=== PATIENT | female | born 1965 | race Caucasian/White ===

== ENCOUNTER → 2021-04-09 10:50 | Outpatient (BNVA) | payer OTHER, SELFPAY | PROVIDERS: Visit Provider Physician Assistant | DX: S46.911A Strain of unspecified muscle, fascia and tendon at shoulder and upper arm level, right arm, initial encounter (principal); X58.XXXA Exposure to other specified factors, initial encounter | CPT/HCPCS: 73030; 99204 ==

== ENCOUNTER → 2021-04-13 15:51 | Outpatient (BNVA) | payer OTHER, SELFPAY | PROVIDERS: Visit Provider Physician Assistant Medical | DX: S49.91XA Unspecified injury of right shoulder and upper arm, initial encounter (principal); X58.XXXA Exposure to other specified factors, initial encounter | CPT/HCPCS: 99213 ==

== ENCOUNTER → 2021-04-20 11:45 | Outpatient (BNVA) | payer OTHER, SELFPAY | PROVIDERS: PCP Internal Medicine; Visit Provider Physician Assistant Medical | DX: S49.91XD Unspecified injury of right shoulder and upper arm, subsequent encounter (principal); X58.XXXD Exposure to other specified factors, subsequent encounter | CPT/HCPCS: 99213 ==

== ENCOUNTER → 2021-05-04 09:08 | Outpatient (BNVA) | payer OTHER, SELFPAY | PROVIDERS: PCP Internal Medicine; Visit Provider Physician Assistant Medical | DX: M24.811 Other specific joint derangements of right shoulder, not elsewhere classified (principal) | CPT/HCPCS: 99213 ==

== ENCOUNTER 2021-05-21 08:00 | Outpatient (RCR) | payer OTHER, SELFPAY ==
--- NOTE | 2021-04-30 12:20 | MHC.PT.EP ---
[facility] [place] Office [place] Office [place] [facility] [address] [phone] F: [phone] F: [phone] F: [phone] F: [phone] Physical Therapy Plan of Care Date of Evaluation: Date of Surgery: NA Diagnosis: RIGHT SHOULDER INJURY Assessment: PRESENTS WITH S/S CONSISTENT WITH MUSCULAR STRAIN OF DELTOID MUSCULATURE FOLLOWING INJURY AT WORK. HER SYMPTOMS ARE GRADUALLY RESOLVING BUT CURRENT IMPAIRMENTS INCLUDE DECREASED SHOULDER AND ARM STRENGTH, ALTERED POSTURE AND POSITIONING LEADING TO MUSCULAR LENGTH AND STRENGTH IMBALANCES LEADING TO INCREASED PAIN. FUNCTIONAL LIMITATIONS INCLUDE DECREASED TOLERANCE TO LIFTING, REACHING, PUSHING AND PULLING. SHE REPORTS DECREASED ABILITY TO PERFORM HOMEMAKING AND WORK TASKS, DECREASED ABILITY TO PARTICIPATE IN RECREATIONAL AND COMMUNITY ACTIVITIES, DISRUPTED SLEEP. 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 Manual therapy to restore motion and function. Therapeutic exercise to improve strength and flexibility. Neuromuscular re-education for posture and balance. Therapeutic activities to return to functional activities of daily living. Electronically signed by: TINA JOHN PT, DPT Please sign and return to therapist. Thank you for your referral.
== END 2021-06-19 14:45 | disposition home or self-care (01) ==
LOC: HO.PT 08:00
PROVIDERS: PCP Internal Medicine; Visit Provider Physician Assistant Medical
DX: S49.91XD Unspecified injury of right shoulder and upper arm, subsequent encounter (principal)
CPT/HCPCS: 97110; 97140; 97161; 97530

== ENCOUNTER → 2021-05-25 09:08 | Outpatient (BNVA) | payer OTHER, SELFPAY | PROVIDERS: PCP Internal Medicine; Visit Provider Physician Assistant Medical | DX: S43.421D Sprain of right rotator cuff capsule, subsequent encounter (principal); X58.XXXD Exposure to other specified factors, subsequent encounter | CPT/HCPCS: 99213 ==

== ENCOUNTER 2021-06-01 16:20 | Outpatient (REF) | payer OTHER, SELFPAY | END 2021-06-01 16:21 | disposition home or self-care (01) | LOC: HO.MRI 16:20 | PROVIDERS: Visit Provider Internal Medicine | DX: Z13.89 Encounter for screening for other disorder (principal) ==

== ENCOUNTER → 2021-06-03 09:39 | Outpatient (BNVA) | payer OTHER, SELFPAY | PROVIDERS: PCP Internal Medicine; Visit Provider Physician Assistant | DX: S49.91XD Unspecified injury of right shoulder and upper arm, subsequent encounter (principal); X58.XXXD Exposure to other specified factors, subsequent encounter | CPT/HCPCS: 99213 ==

== ENCOUNTER → 2021-06-16 09:30 | Outpatient (BNVA) | payer OTHER, SELFPAY | PROVIDERS: PCP Internal Medicine; Visit Provider Physician Assistant Medical | DX: M75.101 Unspecified rotator cuff tear or rupture of right shoulder, not specified as traumatic (principal); S46.211D Strain of muscle, fascia and tendon of other parts of biceps, right arm, subsequent encounter; X58.XXXD Exposure to other specified factors, subsequent encounter | CPT/HCPCS: 99213 ==

== ENCOUNTER → 2022-08-03 12:44 | Outpatient (BNVA) | payer OTHER, SELFPAY | PROVIDERS: PCP Internal Medicine; Visit Provider Nurse Practitioner Family | DX: G43.709 Chronic migraine without aura, not intractable, without status migrainosus (principal) ==

== ENCOUNTER → 2022-08-31 15:03 | Outpatient (BNVA) | payer OTHER, SELFPAY | PROVIDERS: PCP Internal Medicine; Visit Provider Psychiatry & Neurology Neurology | DX: G43.119 Migraine with aura, intractable, without status migrainosus (principal); G43.709 Chronic migraine without aura, not intractable, without status migrainosus | CPT/HCPCS: 64615; J0585 ==

== ENCOUNTER → 2022-11-09 15:16 | Outpatient (BNVA) | payer OTHER, SELFPAY | PROVIDERS: PCP Internal Medicine; Visit Provider Nurse Practitioner Family | DX: G43.709 Chronic migraine without aura, not intractable, without status migrainosus (principal); M54.2 Cervicalgia | CPT/HCPCS: 99212 ==

== ENCOUNTER → 2023-01-21 14:28 | Outpatient (BNVA) | payer OTHER, SELFPAY | PROVIDERS: PCP Internal Medicine; Visit Provider Psychiatry & Neurology Neurology | DX: G43.709 Chronic migraine without aura, not intractable, without status migrainosus (principal) | CPT/HCPCS: 64615; J0585 ==

== ENCOUNTER → 2023-03-23 11:54 | Outpatient (BNVA) | payer OTHER, SELFPAY | PROVIDERS: PCP Internal Medicine; Visit Provider Physician Assistant | DX: S40.012A Contusion of left shoulder, initial encounter (principal); S50.02XA Contusion of left elbow, initial encounter; W18.30XA Fall on same level, unspecified, initial encounter | CPT/HCPCS: 99204 ==

== ENCOUNTER → 2023-04-22 10:13 | Outpatient (BNVA) | payer OTHER, SELFPAY | PROVIDERS: PCP Internal Medicine; Visit Provider Physician Assistant | DX: M77.12 Lateral epicondylitis, left elbow (principal) | CPT/HCPCS: 99204 ==

== ENCOUNTER 2023-04-28 14:41 | Outpatient (AMB) | payer OTHER, SELFPAY ==
--- NOTE | 2023-04-28 15:01 | A.OFFVIS_ITS ---
Intake Vital Signs 04/28/23 15:05 Height 4 ft 9 in Weight 125 lb 4 oz BMI 27.1 BP 128/78 Blood Pressure Location Lt brachial Position Sitting Respiration 16 Pulse 81 Pulse Source Pulse Oximeter Pulse Oximetry (%) 97 Oxygen Delivery Method Room Air Intake Visit Reasons: Botox Intake Note: Pt present to office for her Botox injections. Allergies amoxicillin Adverse Reaction (Intermediate, Verified 04/28/23 15:02) Stomach Upset ibuprofen [From Motrin] Adverse Reaction (Intermediate, Verified 04/28/23 15:02) Stomach Upset Medication List - Last Reconciled 04/28/23 by Page Prather MD atorvastatin 10 mg PO DAILY qieuhujfis-uvuuvdmcprjgb-hqbd 50-300-40 mg (Fioricet) 1 cap PO Q4H PRN clonidine HCl 0.1 mg PO BID cyclobenzaprine 5 mg PO .prn cyclobenzaprine 5 mg PO BID PRN diclofenac sodium 1% dime size amount topically 4 times a day; apply to affected joint QID PRN dicyclomine 10 mg PO DAILY dulaglutide (Trulicity) 3 mg subcut QWEEK estradiol 1 patch transdermal .weekly hydrochlorothiazide 25 mg PO DAILY losartan 25 mg PO DAILY magnesium oxide 400 mg PO BEDTIME 30 days metformin 1,000 mg PO BID metoprolol succinate ER 100 mg PO DAILY omeprazole magnesium (Prilosec OTC) 20 mg PO DAILY onabotulinumtoxinA (Botox) 200 units IM ONCE 12 weeks riboflavin (vitamin B2) 400 mg PO DAILY zolpidem 5 mg PO BEDTIME PRN HPI HPI Comments History of Present Illness Details ? 58y/o female comes for treatment of migraines with botox. ??? Most frequent reported adverse reactions following injection of botox for chronic migraine include neck pain (9%), headache(5%), eyelid ptosis(4%), migraine(4%), muscular weakness(4%), musculuskeletal stiffness(4%), bronchitis(3%), injection site pain (3%), musculoskeletal pain(3%), myalgia(3%), facial paresis(2%), HTN(2%) and muscle spasms(2%) were discussed in detail. ??? Botulinum toxin typeA 200units Lot no [id number] expiration Aug 2025 was diluted with 4 cc of normal saline . ??? Muscles injected- ??? Frontalis 4 sites ??? Procerus 1 site ???Corrugators 2 sites ??? Temporalis- 8 sites ??? Occipitalis- 6 sites ??? Cervical paraspinals- 4 sites ??? Trapezius- 6 sites- ??? 5 units each in 31 site ??? Total use- 155units ??? Discarded-45units [facility] Medical History Insomnia Fibromyalgia Chronic constipation Bilateral cataracts Anxiety Diverticulosis Mucinous cystadenocarcinoma of right ovary Rectal prolapse Mild mitral regurgitation Diabetes HTN (hypertension) PEGGY (obstructive sleep apnea) Arthritis Surgical History H/O lateral meniscus repair of right knee H/O repair of rotator cuff H/O: hysterectomy Family History Maternal Grandmother Colon cancer Social History Alcohol intake: never Patient Tobacco Use Status: Never used Tobacco Physical Exam Vital Signs: Last Vital Signs Pulse 81 04/28/23 15:05 Resp 16 04/28/23 15:05 BP 128/78 04/28/23 15:05 Pulse Ox 97 04/28/23 15:05 Oxygen Delivery Method Room Air 04/28/23 15:05 BMI result Body Mass Index 27.1 Const General: cooperative and no acute distress Orientation/consciousness: patient oriented x3 HEENT Other: No palpable scalp tenderness. Head: Yes normocephalic Resp Effort & Inspection: normal respiratory effort and able to speak in complete sentences Back/Spine/Pelvis Other: Bilateral posterior cervical tightness. Bilateral Spurling- negative. Neuro General: patient oriented x3, gait normal and CN's II-XI intact bilaterally Cognition (Neuro): normal cognition Motor exam (neuro): 5/5 motor strength present throughout Psych Appearance: grossly normal Mental Status: mental status grossly normal Speech and movement: Normal speech and movement present Affect: normal affect Attitude: cooperative Thought process: Normal thought process present Thought content: Normal thought content present Insight: Good insight present (Psych) Judgement: Good judgement present (Psych) Office Procedures Botulinum toxin Injection 55568 - Migraine Procedure code (CPT) selection complete Office Meds onabotulinumtoxinA 200 unit solution for injection Performing Provider: Page Prather MD Performing Location[place] [facility] Administered by: Page Prather MD on 04/28/23 15:30 Dose Route Admin Location Dispensed Lot Number Expiration Date [facility] Data Governance Analyst 155 unit subcut 200 units [id number] 08/18/25 6966-7432-68 [employer]ERGAN/BOTOX Comments: see hpi Assessment & Plan Assessment & Plan (1) Migraine with aura, intractable, without status migrainosus: Code(s): G43.119 - Migraine with aura, intractable, without status migrainosus (2) Chronic migraine without aura: Code(s): G43.709 - Chronic migraine without aura, not intractable, without status migrainosus Plan Patient tolerated the procedure well SHe will call with any side effects Orders: Orders AMB Botulinum toxin Injection Today G43.709 - Chronic migraine without aura, not intractable, without status migrainosus Coding Level of Care Code Est Pt Level 1 (66089) Diagnoses Migraine with aura, intractable, without status migrainosus G43.119 Chronic migraine without aura G43.709 CPT Codes Botox Injection - Botox 3: 47124 - Migraine ([id number])
[2023-04-28 15:05] VITALS: BP 128/78; PULSE 81; RESP 16; O2SAT 97; BMI 27.1
== END 2023-04-28 15:25 | disposition home or self-care (01) ==
PROVIDERS: PCP Internal Medicine; Visit Provider Psychiatry & Neurology Neurology
DX: G43.709 Chronic migraine without aura, not intractable, without status migrainosus (principal)
CPT/HCPCS: 64615

== ENCOUNTER → 2023-04-28 14:41 | Outpatient (BNVA) | payer OTHER, SELFPAY | PROVIDERS: PCP Internal Medicine; Visit Provider Psychiatry & Neurology Neurology | DX: G43.709 Chronic migraine without aura, not intractable, without status migrainosus (principal) | CPT/HCPCS: 64615; 99211; J0585 ==

== ENCOUNTER → 2023-05-06 09:00 | Outpatient (BNVA) | payer OTHER, SELFPAY | PROVIDERS: PCP Internal Medicine; Visit Provider Physician Assistant | DX: M77.12 Lateral epicondylitis, left elbow (principal) | CPT/HCPCS: 99213 ==

== ENCOUNTER 2023-06-06 14:30 | Outpatient (RCR) | payer OTHER, SELFPAY ==
--- NOTE | 2023-04-29 14:53 | MHC.OT.EP ---
[address] [phone] Occupational Therapy Plan of Care Patient Name: Teodora Dunne Date of Evaluation: 04/29/23 Diagnosis: L EPICONDYLITIS Pain Location: L LATERAL ELBOW 3/10 AT REST 7-8/10 WITH USE, CARRYING TASKS Pain Score: 3-8/10 Pain Scale Used: Numeric (0 - 10) Aggravating Factors: LIFTING >3 POUNDS, HOLDING HEAVY ITEMS Alleviating Factors: USING ICE, NOT TAKING PAIN MEDICATION; HAS NOT WORN CFB YET Assessment: MS DUNNE P/W L LATERAL ELBOW PAIN AFTER A STUDENT AT HER WORK PULLED ON HER LEFT ARM, ABOUT THREE WEEKS AGO. SHE FELT IMMEDIATE PAIN, AND CONTINUES TO HAVE PAIN WHEN LIFTING OR CARRYING ITEMS GREATER THAN 3 POUNDS. 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 A 36% LIMITATION WAS REPORTED PER THE QUICKDASH ASSESSMENT. SHE WOULD CONTINUE TO BENEFIT FROM SKILLED OT TO ADDRESS THE AREAS MENTIONED BELOW. 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 Thank you once again for your referral.
--- NOTE | 2023-06-24 11:19 | MHC.OT.DC ---
[address] [phone] F: [phone] Occupational Therapy Discharge Note Patient Name: Teodora Dunne Provider: Majo Portillo Diagnosis: L EPICONDYLITIS Date of Evaluation: 04/29/23 Date of Discharge: 06/24/23 Treatments to Date: 10 Cancellations to Date: 0 No Shows to Date: 0 Discharge Status: Independent with HEP Recommend MD Follow-up Discharge Summary: MS DUNNE IS IND WITH HER HEP, REPORTS SLIGHT DECREASE IN SHARP SUDDEN PAIN. USING COMPENSATORY TECH, GUARDING NON DOMINANT LUE DURING IADLs/ LIFTING TASKS. REPORTS RELIEF WITH USE OF CFB. WOULD CONT TO BENEFIT FROM TRICEP STRETCHING, USE OF STM/DTM AND ICE FOR PAIN RELIEF. PENDING APPOINTMENT WITH [facility] ON 07/07/23. WILL D/C OT AT THIS TIME. Electronically Signed By: MARLI MATHEWS OTR/L Reviewed/agree with student documentation: N/A Therapist: Please Sign and return to therapist, thank you for your referral.
== END 2023-06-24 11:20 | disposition home or self-care (01) ==
LOC: HO.OT 14:30
PROVIDERS: PCP Internal Medicine; Visit Provider Physician Assistant
DX: M77.12 Lateral epicondylitis, left elbow (principal)
CPT/HCPCS: 97033; 97035; 97110; 97140; 97165

== ENCOUNTER 2023-07-07 15:09 | Outpatient (AMB) | payer OTHER, SELFPAY ==
--- NOTE | 2023-07-07 15:13 | A.OFFVIS_ITS ---
Intake Intake Visit Reasons: New Pt - left elbow pain, DOI 04/08/23 Intake Note: Teodora is a 58 year old right hand dominant female who presents today as a new patient for a evaluation for her left elbow pain, DOI 04/08/23. Patient reports she was holding a students hands and the student pulled her arm which lead her to fell a sharp pain and a stretch. Allergies amoxicillin Adverse Reaction (Intermediate, Verified 07/07/23 15:20) Stomach Upset ibuprofen [From Motrin] Adverse Reaction (Intermediate, Verified 07/07/23 15:20) Stomach Upset HPI New Pt - left elbow pain, DOI 04/08/23 HPI Details 58-year-old right hand dominant female nayla hatfield presents in the office today, as a new patient, for an evaluation of left elbow pain. The patient reports on 04/08/2023 she was holding a students hand when they child pulled on her left upper extremity causing her to feel a sharp pain and a stretch. This is a worker?s compensation claim. [facility] Medical History Insomnia Fibromyalgia Chronic constipation Bilateral cataracts Anxiety Diverticulosis Mucinous cystadenocarcinoma of right ovary Rectal prolapse Mild mitral regurgitation Diabetes HTN (hypertension) PEGGY (obstructive sleep apnea) Arthritis Surgical History H/O lateral meniscus repair of right knee H/O repair of rotator cuff H/O: hysterectomy Family History Maternal Grandmother Colon cancer Social History Alcohol intake: never Patient Tobacco Use Status: Never used Tobacco Review of Systems Const All systems reviewed & are unremarkable except as noted in HPI and below Physical Exam Const General: cooperative and no acute distress Orientation/consciousness: patient oriented x3 Resp Effort & Inspection: normal respiratory effort and able to speak in complete sentences Cardio Peripheral pulses: Peripheral pulses 2+ throughout Skin General skin exam: no rashes or lesions noted Neuro General: patient oriented x3 Extrem Other: Left elbow: Normal to inspection. No ecchymosis, erythema, or edema. No tenderness to palpation over the olecranon. No tenderness to the medial epicondyle. Tenderness to the lateral epicondyle. NVI. Office Procedures Joint Injection/Drain Joint Injection/Drain Secondary Site: left tennis elbow Injected: 40 mg of, DepoMedrol, with 1 mL of (2% plain lido) and other (lateral epicondyle ) Procedure: The patient tolerated the procedure well, but had some pain with the injection and there was some relief with the local anesthesia Coding 58760 - Epicondyle Procedure code (CPT) selection complete Assessment & Plan Assessment & Plan (1) Left lateral epicondylitis: Code(s): M77.12 - Lateral epicondylitis, left elbow Plan Ms. Dunne is a 58-year-old right hand dominant female, as a new patient, who presents in the office today, as a new patient, for an evaluation of left elbow pain. The patient reports on 04/08/2023 she was holding a students hand when they child pulled on her left upper extremity causing her to feel a sharp pain and a stretch. This is a worker?s compensation claim. The patient was offered a cortisone injection in the left elbow with 40 mg of DepoMedrol. The patient was explained the risk, benefits, and alternatives to receiving this injection. After receiving consent for the injection, the patient had the procedure done while in office today. The patient tolerated the procedure well with no complications. Due to the patient?s history of diabetes, they were instructed to monitor her blood glucose level. The patient was informed that they could see a rise in their numbers and if the numbers became too high, they were instructed to call their PCP. The patient was also informed that they could have facial flushing as a side effect of the injection but this will pass. Follow up will be PRN, or sooner if needed. Patient Instructions: Scribed for Shreya Reynolds PA-C by Thalia Morris medical assistant dermatology, on 07/07/2023 at 3:11 pm, EST. Coding Level of Care Code New Pt Level 4 (43416) Diagnoses Left lateral epicondylitis M77.12 CPT Codes Coding - Joint 2: 65618 - Epicondyle ([id number])
== END 2023-07-07 16:04 | disposition home or self-care (01) ==
PROVIDERS: PCP Internal Medicine; Visit Provider Physician Assistant
DX: M77.12 Lateral epicondylitis, left elbow (principal)
CPT/HCPCS: 20550; 99203

== ENCOUNTER → 2023-07-07 15:09 | Outpatient (BNVA) | payer OTHER, SELFPAY | PROVIDERS: PCP Internal Medicine; Visit Provider Physician Assistant | DX: M77.12 Lateral epicondylitis, left elbow (principal) | CPT/HCPCS: 20550; 99202; J1020; J1040 ==

== ENCOUNTER 2023-08-01 14:25 | Outpatient (AMB) | payer OTHER, SELFPAY ==
--- NOTE | 2023-08-01 14:36 | MHC.OFFVIS ---
Intake Vital Signs 08/01/23 14:37 Height 4 ft 9 in Weight 126 lb 4 oz BMI 27.3 BP 142/80 H Blood Pressure Location Rt brachial Position Sitting Respiration 15 Pulse 82 Pulse Source Pulse Oximeter Pulse Oximetry (%) 97 Oxygen Delivery Method Room Air Intake Visit Reasons: Botox - Confirmed Intake Note: Pt presents to office for Botox injections. 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 Required: No Allergies amoxicillin Adverse Reaction (Intermediate, Verified 08/01/23 14:37) Stomach Upset ibuprofen [From Motrin] Adverse Reaction (Intermediate, Verified 08/01/23 14:37) Stomach Upset Medication List - Last Reconciled 08/02/23 by Page Prather MD atorvastatin 10 mg PO DAILY jonqxukwru-gjfyfquwkngcu-zhmo 50-300-40 mg (Fioricet) 1 cap PO Q4H PRN clonidine HCl 0.1 mg PO BID cyclobenzaprine 5 mg PO .prn diclofenac sodium 1% dime size amount topically 4 times a day; apply to affected joint QID PRN dicyclomine 10 mg PO DAILY dulaglutide (Trulicity) 3 mg subcut QWEEK estradiol 1 patch transdermal .weekly hydrochlorothiazide 25 mg PO DAILY losartan 25 mg PO DAILY magnesium oxide 400 mg PO BEDTIME 30 days metformin 1,000 mg PO BID metoprolol succinate ER 100 mg PO DAILY omeprazole magnesium (Prilosec OTC) 20 mg PO DAILY onabotulinumtoxinA (Botox) 200 units IM ONCE 12 weeks riboflavin (vitamin B2) 400 mg PO DAILY zolpidem 5 mg PO BEDTIME PRN HPI HPI Comments History of Present Illness Details ? 58y/o female comes for treatment of migraines with botox. How many migraine days prior to botox-25-30 days How long do the migraines last 1-2 days Intensity of migraine -04/26 ER visits related to migraine- 3 Effectiveness of botox from last two treatment(s) How many migraine days since receiving treatment: Change? in intensity of migraine?3-8 Change in frequency of migraine? 3-4/month Change in use of acute medication for migraine? decreased Change in quality of life?improved ER visits related to migraine?none Have at least three months elapsed since last treatment (Last botox date - frequency of injections) 04/28/23 ??? Most frequent reported adverse reactions following injection of botox for chronic migraine include neck pain (9%), headache(5%), eyelid ptosis(4%), migraine(4%), muscular weakness(4%), musculuskeletal stiffness(4%), bronchitis(3%), injection site pain (3%), musculoskeletal pain(3%), myalgia(3%), facial paresis(2%), HTN(2%) and muscle spasms(2%) were discussed in detail. ??? Botulinum toxin typeA 200units Lot no [id number] expiration Aug 2025 was diluted with 4 cc of normal saline . ??? Muscles injected- ??? Frontalis 4 sites ??? Procerus 1 site ???Corrugators 2 sites ??? Temporalis- 8 sites ??? Occipitalis- 6 sites ??? Cervical paraspinals- 4 sites ??? Trapezius- 6 sites- ??? 5 units each in 31 site ??? Total use- 155units ??? Discarded-45units [facility] Medical History Insomnia Fibromyalgia Chronic constipation Bilateral cataracts Anxiety Diverticulosis Mucinous cystadenocarcinoma of right ovary Rectal prolapse Mild mitral regurgitation Diabetes HTN (hypertension) PEGGY (obstructive sleep apnea) Arthritis Surgical History H/O lateral meniscus repair of right knee H/O repair of rotator cuff H/O: hysterectomy Family History Maternal Grandmother Colon cancer Social History Alcohol intake: never Patient Tobacco Use Status: Never used Tobacco Physical Exam Vital Signs: Last Vital Signs Pulse 82 08/01/23 14:37 Resp 15 08/01/23 14:37 BP 142/80 H 08/01/23 14:37 Pulse Ox 97 08/01/23 14:37 Oxygen Delivery Method Room Air 08/01/23 14:37 BMI result Body Mass Index 27.3 Const General: cooperative and no acute distress Orientation/consciousness: patient oriented x3 HEENT Other: No palpable scalp tenderness. Head: Yes normocephalic Resp Effort & Inspection: normal respiratory effort and able to speak in complete sentences Back/Spine/Pelvis Other: Bilateral posterior cervical tightness. Bilateral Spurling- negative. Neuro General: patient oriented x3, gait normal and CN's II-XI intact bilaterally Cognition (Neuro): normal cognition Motor exam (neuro): 5/5 motor strength present throughout Psych Appearance: grossly normal Mental Status: mental status grossly normal Speech and movement: Normal speech and movement present Affect: normal affect Attitude: cooperative Thought process: Normal thought process present Thought content: Normal thought content present Insight: Good insight present (Psych) Judgement: Good judgement present (Psych) Office Procedures Botulinum toxin Injection 66041 - Migraine Procedure code (CPT) selection complete Office Meds onabotulinumtoxinA 200 unit solution for injection Performing Provider: Page Prather MD Performing Location: [facility] Administered by: Page Prather MD on 08/02/23 12:43 Dose Route Admin Location Dispensed Lot Number Expiration Date [facility] Consumer Lending Manager 155 unit IM 200 units [id number] 12/16/25 6294-7873-92 [employer]/BOTOX Comments: see hpi Assessment & Plan Assessment & Plan (1) Migraine with aura, intractable, without status migrainosus: Code(s): G43.119 - Migraine with aura, intractable, without status migrainosus (2) Chronic migraine without aura: Code(s): G43.709 - Chronic migraine without aura, not intractable, without status migrainosus Plan Patient tolerated the procedure well SHe will call with any side effects Orders: Orders AMB Botulinum toxin Injection 08/01/23 G43.709 - Chronic migraine without aura, not intractable, without status migrainosus Coding Level of Care Code Est Pt Level 1 (13837) Diagnoses Migraine with aura, intractable, without status migrainosus G43.119 Chronic migraine without aura G43.709 CPT Codes Botox Injection - Botox 3: 95638 - Migraine ([id number])
[2023-08-01 14:37] VITALS: BP 142/80; PULSE 82; RESP 15; O2SAT 97; BMI 27.3
== END 2023-08-01 15:07 | disposition home or self-care (01) ==
PROVIDERS: PCP Internal Medicine; Visit Provider Psychiatry & Neurology Neurology
DX: G43.119 Migraine with aura, intractable, without status migrainosus (principal); G43.709 Chronic migraine without aura, not intractable, without status migrainosus
CPT/HCPCS: 64615

== ENCOUNTER → 2023-08-01 14:25 | Outpatient (BNVA) | payer OTHER, SELFPAY | PROVIDERS: PCP Internal Medicine; Visit Provider Psychiatry & Neurology Neurology | DX: G43.709 Chronic migraine without aura, not intractable, without status migrainosus (principal); G43.119 Migraine with aura, intractable, without status migrainosus | CPT/HCPCS: 64615; 99211; J0585 ==

== ENCOUNTER 2023-08-09 13:34 | Outpatient (AMB) | payer OTHER, SELFPAY ==
--- NOTE | 2023-08-09 14:03 | A.OFFVIS_ITS ---
Intake Vital Signs 08/09/23 14:04 Height 4 ft 9 in Weight 126 lb BMI 27.3 Intake Visit Reasons: 6 mo follow up for Migraines Intake Note: Patient presents for 6 month follow up migraines. my migraines are better since I saw her last,im on botox Allergies amoxicillin Adverse Reaction (Intermediate, Verified 08/09/23 14:07) Stomach Upset ibuprofen [From Motrin] Adverse Reaction (Intermediate, Verified 08/09/23 14:07) Stomach Upset HPI HPI Comments History of Present Illness Details 58-yr-old female presents for f/u visit. Pt denies any significant interval medical changes. However, she did recently have 14 day holter monitor- results pending- to evaluate episodes of palpitations and tachycardia as well as episodes of feeling her heart beat pause/stop for a second. F/B Dr Greene at [facility] cardiology. Has had a few episodes of intense left parietal stabbing pain, lasting for seconds, unsure of a/w autonomic s/s, sometimes this can be f/b a migraine but not always. She is having much less migraine attacks since starting Botox, now can go a whole week w/o migraine or can feel a migraine come on but just disappears. At most 4 severe migraine days per month. Sometimes a migraine can last 1-2 days. Not sure if this is triggered by poor sleep. She is using her CPAP nightly- f/b [facility] sleep medicine. She asks us to complete [facility] paperwork today. Baseline headache characteristics: Severe bifrontal, berny jaws, eyes, and top of head. A/w photophobia, phonophobia, and prominent osmophobia, nausea. In the past, she had visual aura- like looking through plastic/blurring moving objects. Current number of typical migraine days per month: 4 Average painfulness of these migraines: Mod-Severe Current number of non-migraine headache days per month: 0 Average painfulness of these headaches: 0 Current number of days of acute medication use per month: 4- uses Fioricet, which is effective. Previous number of migraine days per month prior to starting current preventive tx: 2-3 migraines per week and low-level headaches most days. [facility] Medical History Insomnia Fibromyalgia Chronic constipation Bilateral cataracts Anxiety Diverticulosis Mucinous cystadenocarcinoma of right ovary Rectal prolapse Mild mitral regurgitation Diabetes HTN (hypertension) PEGGY (obstructive sleep apnea) Arthritis Surgical History H/O lateral meniscus repair of right knee H/O repair of rotator cuff H/O: hysterectomy Family History Maternal Grandmother Colon cancer Social History Alcohol intake: never Patient Tobacco Use Status: Never used Tobacco Physical Exam Vital Signs: BMI result Body Mass Index 27.3 Const General: cooperative and no acute distress Orientation/consciousness: patient oriented x3 Resp Effort & Inspection: normal respiratory effort and able to speak in complete sentences Neuro General: patient oriented x3 Cranial nerves: Yes CN's II-XII intact bilaterally Cognition (Neuro): normal cognition Psych Appearance: grossly normal Mental Status: mental status grossly normal Speech and movement: Normal speech and movement present Affect: normal affect Attitude: cooperative Assessment & Plan Assessment & Plan (1) Chronic migraine without aura: Code(s): G43.709 - Chronic migraine without aura, not intractable, without status migrainosus (2) Migraine with aura, intractable, without status migrainosus: Code(s): G43.119 - Migraine with aura, intractable, without status migrainosus (3) Stabbing headache: Comment: Left-sided Code(s): G44.85 - Primary stabbing headache Plan [employer]ML[employer] paperwork completed today. Left-sided stabbing headache: She may try to take Fioricet at onset of an attack, to see if this prevents repeated attacks. Could consider Indomethacin trial however pt has h/o GIp upset w/ NSAID use. Alternates: gabapentin, melatonin, nerve blocks, targeted left parietal Botox. For acute migraine tx: May continue Fioricet up to 10 tabs per month. Contraindications: Triptans- as HTN has been less well-controlled. Future considerations: Trial of Nurtec or Ubrelvy, however Fioricet would be to be held prior to trialing either of these. ? For chronic migraine prevention: Continue Riboflavin 400mg qam. Continue Magnesium 400mg qhs. Continue Metoprolol- taken primarily for HTN. Continue Botox, as patient continues to experience significant reduction in her migraine attacks. Previous migraine prevention trials: Amitriptyline did not help, topiramate- she could not tolerate, inderal did not help, verapramil did not help, Aimovig- caused constipation. Emgality caused constipation. Magnesium- unsure if helped. Contraindications: I would avoid Ajovy as pt has h/o IBS and had constipation to both Aimovog and Emgality. Follow-up for Botox w/ Dr Prather as scheduled F/u w/ [employer] in at 6 months or sooner prn. Coding Level of Care Code Est Pt Level 4 (86058) Diagnoses Chronic migraine without aura G43.709 Migraine with aura, intractable, without status migrainosus G43.119 Stabbing headache G44.85
[2023-08-09 14:04] VITALS: BMI 27.3
== END 2023-08-09 14:49 | disposition home or self-care (01) ==
PROVIDERS: Visit Provider Nurse Practitioner Family
DX: G43.709 Chronic migraine without aura, not intractable, without status migrainosus (principal); G43.119 Migraine with aura, intractable, without status migrainosus; G44.85 Primary stabbing headache
CPT/HCPCS: 99024

== ENCOUNTER → 2023-08-09 13:34 | Outpatient (BNVA) | payer OTHER, SELFPAY | PROVIDERS: Visit Provider Nurse Practitioner Family ==

== ENCOUNTER → 2023-10-14 08:38 | Outpatient (BNVA) | payer OTHER, SELFPAY | PROVIDERS: PCP Internal Medicine; Visit Provider Physician Assistant | DX: S40.011A Contusion of right shoulder, initial encounter (principal); S80.02XA Contusion of left knee, initial encounter; S30.1XXA Contusion of abdominal wall, initial encounter; W19.XXXA Unspecified fall, initial encounter | CPT/HCPCS: 73564; 99204 ==

== ENCOUNTER 2023-11-03 15:29 | Outpatient (AMB) | payer OTHER, SELFPAY ==
[2023-11-03 15:33] VITALS: BP 124/70; PULSE 88; RESP 16; O2SAT 99; BMI 27.0
--- NOTE | 2023-11-03 15:33 | MHC.OFFVIS ---
Vital Signs 11/03/23 15:33 Height 4 ft 9 in Weight 125 lb BMI 27.0 BP 124/70 Blood Pressure Location Rt brachial Position Sitting Respiration 16 Pulse 88 Pulse Source Pulse Oximeter Pulse Oximetry (%) 99 Oxygen Delivery Method Room Air Intake Visit Reasons: botox-CONF Intake Note: Pt presents tot he office for Botox injections. Lab Animal Technologist Required: No Allergies amoxicillin Adverse Reaction (Intermediate, Verified 11/03/23 15:33) Stomach Upset ibuprofen [From Motrin] Adverse Reaction (Intermediate, Verified 11/03/23 15:33) Stomach Upset Medication List - Last Reconciled 11/03/23 by Page Prather MD atorvastatin 10 mg PO DAILY knvegjnkdy-grreelwtoefql-dimk 50-300-40 mg (Fioricet) 1 cap PO Q4H PRN clonidine HCl 0.1 mg PO BID cyclobenzaprine 5 mg PO .prn diclofenac sodium 1% dime size amount topically 4 times a day; apply to affected joint QID PRN dicyclomine 10 mg PO DAILY dulaglutide (Trulicity) 3 mg subcut QWEEK estradiol 1 patch transdermal .weekly hydrochlorothiazide 25 mg PO DAILY losartan 25 mg PO DAILY magnesium oxide 400 mg PO BEDTIME 30 days metformin 1,000 mg PO BID metoprolol succinate ER 100 mg PO DAILY omeprazole magnesium (Prilosec OTC) 20 mg PO DAILY onabotulinumtoxinA (Botox) 200 units IM ONCE 12 weeks riboflavin (vitamin B2) 400 mg PO DAILY zolpidem 5 mg PO BEDTIME PRN HPI Comments Details: ? 58y/o female comes for treatment of migraines with botox. How many migraine days prior to botox-25-30 days How long do the migraines last 1-2 days Intensity of migraine 8-04/26 ER visits related to migraine- 3 Effectiveness of botox from last two treatment(s) How many migraine days since receiving treatment: Change? in intensity of migraine?3-8 Change in frequency of migraine? 3-4/month Change in use of acute medication for migraine? decreased Change in quality of life?improved ER visits related to migraine?none Have at least three months elapsed since last treatment (Last botox date - frequency of injections) 08/01/23 she had 5 days of migraine last month ??? Most frequent reported adverse reactions following injection of botox for chronic migraine include neck pain (9%), headache(5%), eyelid ptosis(4%), migraine(4%), muscular weakness(4%), musculuskeletal stiffness(4%), bronchitis(3%), injection site pain (3%), musculoskeletal pain(3%), myalgia(3%), facial paresis(2%), HTN(2%) and muscle spasms(2%) were discussed in detail. ??? Botulinum toxin typeA 200units Lot no [id number] expiration December 2025 was diluted with 4 cc of normal saline . ??? Muscles injected- ??? Frontalis 4 sites ??? Procerus 1 site ???Corrugators 2 sites ??? Temporalis- 8 sites ??? Occipitalis- 6 sites ??? Cervical paraspinals- 4 sites ??? Trapezius- 6 sites- ??? 5 units each in 31 site ??? Total use- 155units ??? Discarded-45units [facility] Medical History Insomnia Fibromyalgia Chronic constipation Bilateral cataracts Anxiety Diverticulosis Mucinous cystadenocarcinoma of right ovary Rectal prolapse Mild mitral regurgitation Diabetes HTN (hypertension) PEGGY (obstructive sleep apnea) Arthritis Surgical History H/O lateral meniscus repair of right knee H/O repair of rotator cuff H/O: hysterectomy Family History Maternal Grandmother Colon cancer Social History Alcohol intake: never Patient Tobacco Use Status: Never used Tobacco Physical Exam Vital Signs: Last Vital Signs Pulse 88 11/03/23 15:33 Resp 16 11/03/23 15:33 BP 124/70 11/03/23 15:33 Pulse Ox 99 11/03/23 15:33 Oxygen Delivery Method Room Air 11/03/23 15:33 BMI result Body Mass Index 27.0 Const General: cooperative and no acute distress Orientation/consciousness: patient oriented x3 HEENT Other: No palpable scalp tenderness. Head: Yes normocephalic Resp Effort & Inspection: normal respiratory effort and able to speak in complete sentences Back/Spine/Pelvis Other: Bilateral posterior cervical tightness. Bilateral Spurling- negative. Neuro General: patient oriented x3, gait normal and CN's II-XI intact bilaterally Cognition (Neuro): normal cognition Motor exam (neuro): 5/5 motor strength present throughout Psych Appearance: grossly normal Mental Status: mental status grossly normal Speech and movement: Normal speech and movement present Affect: normal affect Attitude: cooperative Thought process: Normal thought process present Thought content: Normal thought content present Insight: Good insight present (Psych) Judgement: Good judgement present (Psych) Office Procedures Botulinum toxin Injection 01314 - Migraine Procedure code (CPT) selection complete Office Meds onabotulinumtoxinA 200 unit solution for injection Performing Provider: Page Prather MD Performing Location: [facility] Administered by: Page Prather MD on 11/03/23 15:53 Dose Route Admin Location Dispensed Lot Number Expiration Date [facility] [employer] 155 unit subcut 200 units [id number] 12/16/25 3494-8508-40 ALLERGAN/BOTOX Comments: see HPI Assessment & Plan Assessment & Plan (1) Migraine with aura, intractable, without status migrainosus: Code(s): G43.119 - Migraine with aura, intractable, without status migrainosus Category: Medical (2) Chronic migraine without aura: Code(s): G43.709 - Chronic migraine without aura, not intractable, without status migrainosus Category: Medical Plan Patient tolerated the procedure well SHe will call with any side effects Orders: Orders AMB Botulinum toxin Injection Today G43.709 - Chronic migraine without aura, not intractable, without status migrainosus Medications: New onabotulinumtoxinA 200 units subcut ONCE 1 ea 0RF migraine G43.709 - Chronic migraine without aura, not intractable, without status migrainosus
== END 2023-11-03 15:52 | disposition home or self-care (01) ==
LOC: HO.HSMS 15:29
PROVIDERS: PCP Internal Medicine; Visit Provider Psychiatry & Neurology Neurology
DX: G43.119 Migraine with aura, intractable, without status migrainosus (principal)
CPT/HCPCS: 64615

== ENCOUNTER → 2023-11-03 15:29 | Outpatient (BNVA) | payer OTHER, SELFPAY | PROVIDERS: PCP Internal Medicine; Visit Provider Psychiatry & Neurology Neurology | DX: G43.119 Migraine with aura, intractable, without status migrainosus (principal); G43.709 Chronic migraine without aura, not intractable, without status migrainosus | CPT/HCPCS: 64615; 99211; J0585 ==

== ENCOUNTER 2024-02-07 14:02 | Outpatient (AMB) | payer OTHER, SELFPAY ==
--- NOTE | 2024-02-07 14:03 | A.OFFVIS_ITS ---
Intake Visit Reasons: 6 mo f/u-CONF Allergies amoxicillin Adverse Reaction (Intermediate, Verified 02/13/24 13:55) Stomach Upset ibuprofen [From Motrin] Adverse Reaction (Intermediate, Verified 02/13/24 13:55) Stomach Upset Medication List - Last Reconciled 02/07/24 by SAPNA Max atorvastatin 10 mg PO DAILY kppzqrwloi-fdjqrogmnmlwo-yjhy 50-300-40 mg (Fioricet) 1 - 2 caps PO Q4-6H PRN clonidine HCl 0.1 mg PO BID cyclobenzaprine 5 mg PO .prn diclofenac sodium 1% dime size amount topically 4 times a day; apply to affected joint QID PRN dicyclomine 10 mg PO DAILY dulaglutide (Trulicity) 3 mg subcut QWEEK estradiol 1 patch transdermal .weekly hydrochlorothiazide 25 mg PO DAILY losartan 25 mg PO DAILY magnesium oxide 400 mg PO BEDTIME 30 days metformin 1,000 mg PO BID metoprolol succinate ER 100 mg PO DAILY omeprazole magnesium (Prilosec OTC) 20 mg PO DAILY onabotulinumtoxinA (Botox) 200 units IM ONCE 12 weeks riboflavin (vitamin B2) 400 mg PO DAILY 30 days sumatriptan succinate 50 - 100 mg orally at onset of headache, may repeat in 2 hrs PRN; max 2 tabs per day or 4 tabs/week (may take with Tylenol) 30 days zolpidem 5 mg PO BEDTIME PRN HPI Comments Details: 58-yr-old female presents for f/u televideo visit via [employer] Pt reports she is recovering from a Covid-19 infection- states she felt pretty sick but did not need hospitalization. During this time, she had terrible left to right sided ping-ponging headache. This was not responding to her usual OTC tylenol or Fioricet. She states that the headaches subsided once she took Paxlo vid. Overall, the Botox for chronic migarine is helping. She does need to miss work the day following her Botox injections- as it makes her feel a bit dizzy, off, and tired. She states she has only been having a migraine when their is a big storm. In November or December, she had a typical migraine preceded by a visual aura- similar to previous aura- looking through a blurry piece of plastic a/w some dizziness. She thinks maybe this was d/t having some increased stress. Baseline headache characteristics: Severe bifrontal, berny jaws, eyes, and top of head. A/w photophobia, phonophobia, and prominent osmophobia, nausea. In the past, she had visual aura- like looking through plastic/blurring moving objects. She can still have intense left parietal stabbing pain, lasting for seconds, unsure of a/w autonomic s/s, sometimes this can be f/b a migraine but not always. She is having much less migraine attacks since starting Botox, now can go a whole week w/o migraine or can feel a migraine come on but just disappears. At most 4 severe migraine days per month. Sometimes a migraine can last 1-2 days. Not sure if this is triggered by poor sleep. She is using her CPAP nightly- f/b [facility] sleep medicine. [facility] Medical History Insomnia Fibromyalgia Chronic constipation Bilateral cataracts Anxiety Diverticulosis Mucinous cystadenocarcinoma of right ovary Rectal prolapse Mild mitral regurgitation Diabetes HTN (hypertension) PEGGY (obstructive sleep apnea) Arthritis Surgical History H/O lateral meniscus repair of right knee H/O repair of rotator cuff H/O: hysterectomy Family History Maternal Grandmother Colon cancer Social History Alcohol intake: never Patient Tobacco Use Status: Never used Tobacco Physical Exam Const General: cooperative and no acute distress Orientation/consciousness: patient oriented x3 Resp Effort & Inspection: normal respiratory effort and able to speak in complete sentences Neuro General: patient oriented x3 Cognition (Neuro): normal cognition Psych Appearance: grossly normal Mental Status: mental status grossly normal Speech and movement: Normal speech and movement present Affect: normal affect Attitude: cooperative Telehealth Telehealth [facility]health [facility] Location of provider rendering services: practice address Location of patient: address on file Patient Identification confirmed using: Name, : Yes Telehealth method: video Patient verbally consented to treatment: Yes Patient verbally consented to billing insurance company: Yes Patient informed of any privacy concerns related to visit: Yes Minutes spent on Phone/Video with Pt.: 19 Assessment & Plan Assessment & Plan (1) Chronic migraine without aura: Code(s): G43.709 - Chronic migraine without aura, not intractable, without status migrainosus Category: Medical (2) Stabbing headache: Comment: Left-sided Code(s): G44.85 - Primary stabbing headache Category: Medical (3) Migraine with aura, intractable, without status migrainosus: Code(s): G43.119 - Migraine with aura, intractable, without status migrainosus Category: Medical Plan Left-sided stabbing headache: She may try to take Fioricet at onset of an attack, to see if this prevents repeated attacks. Could consider Indomethacin trial however pt has h/o GIp upset w/ NSAID use. Alternates: gabapentin, melatonin, nerve blocks, targeted left parietal Botox. ? For acute migraine tx: May continue Fioricet up to 10 tabs per month. Trial Sumatriptan 100mg tab, as BP is better controlled. Directions: 1/2 - 1 tab (50-100mg) at onset of headache, may repeat in 2 hours. Max of 2 tabs (200mg) per 24 hours. May adjunct with OTC Tylenol 650mg q 4 hours prn.. Future considerations: Trial of Nurtec or Ubrelvy, however Fioricet would be to be held prior to trialing either of these. ? For chronic migraine prevention: Continue Riboflavin 400mg qam. Continue Magnesium 400mg qhs. Continue Metoprolol- taken primarily for HTN. Continue Botox, as patient continues to experience significant reduction in her migraine attacks. Previous migraine prevention trials: Amitriptyline did not help, topiramate- she could not tolerate, inderal did not help, verapramil did not help, Aimovig- caused constipation. Emgality caused constipation. Magnesium- unsure if helped. Contraindications: I would avoid Ajovy or Qulipta as pt has h/o IBS and had constipation to both Aimovog and Emgality. ? Follow-up for Botox w/ Dr Prather as scheduled F/u w/ [employer] in at 6 months or sooner prn. Medications: New sumatriptan succinate 50 - 100 mg orally at onset of headache, may repeat in 2 hrs PRN; max 2 tabs per day or 4 tabs/week (may take with Tylenol) 12 tabs 6RF migraine headache 30 days Changed From riboflavin (vitamin B2) 400 mg PO DAILY To riboflavin (vitamin B2) 400 mg PO DAILY 30 tabs 0RF 30 days Refilled magnesium oxide may hold for loose stools 400 mg PO BEDTIME 30 tabs 6RF 30 days onabotulinumtoxinA (Botox) inject 155 units IM across forehead, scalp, and neck 200 units IM ONCE 1 ea 3RF 12 weeks G43.709 - Chronic migraine without aura, not intractable, without status migrainosus Coding Level of Care Code Tele Est Pt Level 4 (07076) Diagnoses Chronic migraine without aura G43.709 Stabbing headache G44.85 Migraine with aura, intractable, without status migrainosus G43.119
== END 2024-02-07 14:35 | disposition home or self-care (01) ==
LOC: HO.HSMS 14:02
PROVIDERS: PCP Internal Medicine; Visit Provider Nurse Practitioner Family
DX: G43.709 Chronic migraine without aura, not intractable, without status migrainosus (principal); G44.85 Primary stabbing headache; G43.119 Migraine with aura, intractable, without status migrainosus
CPT/HCPCS: 99214

== ENCOUNTER → 2024-02-07 14:02 | Outpatient (BNVA) | payer OTHER, SELFPAY | PROVIDERS: PCP Internal Medicine; Visit Provider Nurse Practitioner Family ==

== ENCOUNTER 2024-02-13 13:47 | Outpatient (AMB) | payer OTHER, SELFPAY ==
--- NOTE | 2024-02-13 13:52 | MHC.OFFVIS ---
Vital Signs 02/13/24 13:53 Height 4 ft 9 in Weight 125 lb BMI 27.0 BP 118/72 Blood Pressure Location Rt brachial Position Sitting Intake Visit Reasons: BOTOX-CONF Intake Note: patient here for botox injection. Allergies amoxicillin Adverse Reaction (Intermediate, Verified 02/13/24 13:55) Stomach Upset ibuprofen [From Motrin] Adverse Reaction (Intermediate, Verified 02/13/24 13:55) Stomach Upset Medication List - Last Reconciled 02/13/24 by Page Prather MD atorvastatin 10 mg PO DAILY lbhhpzvqpv-uouwkgoffxaut-qvhs 50-300-40 mg (Fioricet) 1 - 2 caps PO Q4-6H PRN clonidine HCl 0.1 mg PO BID cyclobenzaprine 5 mg PO .prn diclofenac sodium 1% dime size amount topically 4 times a day; apply to affected joint QID PRN dicyclomine 10 mg PO DAILY dulaglutide (Trulicity) 3 mg subcut QWEEK estradiol 1 patch transdermal .weekly hydrochlorothiazide 25 mg PO DAILY losartan 25 mg PO DAILY magnesium oxide 400 mg PO BEDTIME 30 days metformin 1,000 mg PO BID metoprolol succinate ER 100 mg PO DAILY omeprazole magnesium (Prilosec OTC) 20 mg PO DAILY onabotulinumtoxinA (Botox) 200 units IM ONCE 12 weeks riboflavin (vitamin B2) 400 mg PO DAILY 30 days sumatriptan succinate 50 - 100 mg orally at onset of headache, may repeat in 2 hrs PRN; max 2 tabs per day or 4 tabs/week (may take with Tylenol) 30 days zolpidem 5 mg PO BEDTIME PRN HPI Comments Details: ? 58y/o female comes for treatment of migraines with botox. How many migraine days prior to botox-25-30 days How long do the migraines last 1-2 days Intensity of migraine 8-04/26 ER visits related to migraine- 3 Effectiveness of botox from last two treatment(s) How many migraine days since receiving treatment: Change? in intensity of migraine?3-8 Change in frequency of migraine? 3-4/month Change in use of acute medication for migraine? decreased Change in quality of life?improved ER visits related to migraine?none Have at least three months elapsed since last treatment (Last botox date - frequency of injections) 11/08 she had 5 days of migraine last month ??? Most frequent reported adverse reactions following injection of botox for chronic migraine include neck pain (9%), headache(5%), eyelid ptosis(4%), migraine(4%), muscular weakness(4%), musculuskeletal stiffness(4%), bronchitis(3%), injection site pain (3%), musculoskeletal pain(3%), myalgia(3%), facial paresis(2%), HTN(2%) and muscle spasms(2%) were discussed in detail. ??? Botulinum toxin typeA 200units Lot no [id number] expiration Feb 2026 was diluted with 4 cc of normal saline . ??? Muscles injected- ??? Frontalis 4 sites ??? Procerus 1 site ???Corrugators 2 sites ??? Temporalis- 8 sites ??? Occipitalis- 6 sites ??? Cervical paraspinals- 4 sites ??? Trapezius- 6 sites- ??? 5 units each in 31 site ??? Total use- 155units ??? Discarded-45units [facility] Medical History (Updated 02/13/24 @ 14:26 by Page Prather MD) Chronic migraine without aura, intractable, without status migrainosus Insomnia Fibromyalgia Chronic constipation Bilateral cataracts Anxiety Diverticulosis Mucinous cystadenocarcinoma of right ovary Rectal prolapse Mild mitral regurgitation Diabetes HTN (hypertension) PEGGY (obstructive sleep apnea) Arthritis Surgical History H/O lateral meniscus repair of right knee H/O repair of rotator cuff H/O: hysterectomy Family History Maternal Grandmother Colon cancer Social History Alcohol intake: never Patient Tobacco Use Status: Never used Tobacco Physical Exam Vital Signs: Last Vital Signs BP 118/72 02/13/24 13:53 BMI result Body Mass Index 27.0 Const General: cooperative and no acute distress Orientation/consciousness: patient oriented x3 Resp Effort & Inspection: normal respiratory effort and able to speak in complete sentences Neuro General: patient oriented x3 Cognition (Neuro): normal cognition Psych Appearance: grossly normal Mental Status: mental status grossly normal Speech and movement: Normal speech and movement present Affect: normal affect Attitude: cooperative Office Procedures Botulinum toxin Injection 32270 - Migraine Procedure code (CPT) selection complete Office Meds onabotulinumtoxinA 200 unit solution for injection Performing Provider: Page Prather MD Performing Location[place] [facility] Administered by: Page Prather MD on 02/13/24 14:28 Dose Route Admin Location Dispensed Lot Number Expiration Date [facility] Community [employer] Officer 155 unit subcut 200 units [id number] 02/15/26 8153-3300-85 ALLERGAN/BOTOX Comments: see HPI Assessment & Plan Assessment & Plan (1) Migraine with aura, intractable, without status migrainosus: Code(s): G43.119 - Migraine with aura, intractable, without status migrainosus Category: Medical (2) Chronic migraine without aura: Code(s): G43.709 - Chronic migraine without aura, not intractable, without status migrainosus Category: Medical (3) Chronic migraine without aura, intractable, without status migrainosus: Code(s): G43.719 - Chronic migraine without aura, intractable, without status migrainosus Category: Medical Plan Patient tolerated the procedure well SHe will call with any side effects Orders: Orders AMB Botulinum toxin Injection Today G43.719 - Chronic migraine without aura, intractable, without status migrainosus Medications: New onabotulinumtoxinA 200 units subcut ONCE 1 ea 0RF Migraine G43.719 - Chronic migraine without aura, intractable, without status migrainosus Coding Level of Care Code Est Pt Level 1 (25727) Diagnoses Migraine with aura, intractable, without status migrainosus G43.119 Chronic migraine without aura G43.709 Chronic migraine without aura, intractable, without status migrainosus G43.719 CPT Codes Botox Injection - Botox 3: 25386 - Migraine ([id number])
[2024-02-13 13:53] VITALS: BP 118/72; BMI 27.0
== END 2024-02-13 14:27 | disposition home or self-care (01) ==
PROVIDERS: PCP Internal Medicine; Visit Provider Psychiatry & Neurology Neurology
DX: G43.719 Chronic migraine without aura, intractable, without status migrainosus (principal)
CPT/HCPCS: 64615

== ENCOUNTER → 2024-02-13 13:47 | Outpatient (BNVA) | payer OTHER, SELFPAY | PROVIDERS: PCP Internal Medicine; Visit Provider Psychiatry & Neurology Neurology | DX: G43.119 Migraine with aura, intractable, without status migrainosus (principal); G43.709 Chronic migraine without aura, not intractable, without status migrainosus; G43.719 Chronic migraine without aura, intractable, without status migrainosus | CPT/HCPCS: 64615; 99211; J0585 ==

== ENCOUNTER → 2024-04-19 14:32 | Outpatient (BNVA) | payer OTHER, SELFPAY | PROVIDERS: PCP Internal Medicine; Visit Provider Physician Assistant Medical | DX: S00.12XA Contusion of left eyelid and periocular area, initial encounter (principal); Y04.2XXA Assault by strike against or bumped into by another person, initial encounter; R51.9 Headache, unspecified; R20.0 Anesthesia of skin; H53.8 Other visual disturbances | CPT/HCPCS: 99202 ==

== ENCOUNTER 2024-04-19 15:50 | Emergency (ER) | payer OTHER, SELFPAY ==
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
[2024-04-19 16:40] VITALS: BP 153/87; PULSE 80; RESP 16; TEMP 36.6; O2SAT 100; BMI 27.0
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
[2024-04-19 22:10] VITALS: BP 183/88; PULSE 78; RESP 18; TEMP 36.6; O2SAT 98
[2024-04-19 22:21] VITALS: BP 183/88; PULSE 78; RESP 18; TEMP 36.6; O2SAT 98
== END 2024-04-19 22:22 | disposition home or self-care (01) ==
PROVIDERS: Emergency Provider Emergency Medicine; PCP Internal Medicine
DX: S09.90XA Unspecified injury of head, initial encounter (principal); R51.9 Headache, unspecified; Y04.2XXA Assault by strike against or bumped into by another person, initial encounter; Y93.89 Activity, other specified; Y92.213 High school as the place of occurrence of the external cause; Y99.8 Other external cause status; Z79.899 Other long term (current) drug therapy
CPT/HCPCS: 70450; 99284

== ENCOUNTER 2024-05-15 14:56 | Outpatient (AMB) | payer OTHER, SELFPAY ==
[2024-05-15 15:26] VITALS: BP 114/76; PULSE 77; O2SAT 99
--- NOTE | 2024-05-15 15:26 | A.OFFVIS_ITS ---
Vital Signs 05/15/24 15:26 Height 4 ft 9 in BP 114/76 Blood Pressure Location Lt brachial Position Sitting Pulse 77 Pulse Source Pulse Oximeter Pulse Oximetry (%) 99 Oxygen Delivery Method Room Air Intake Visit Reasons: BOTOX Intake Note: Patient presents for a follow up. ( Botox ) Manager Hardware Required: No Accompanied by: Self / Same As Patient Allergies amoxicillin Adverse Reaction (Intermediate, Verified 05/15/24 15:28) Stomach Upset ibuprofen [From Motrin] Adverse Reaction (Intermediate, Verified 05/15/24 15:28) Stomach Upset Medication List - Last Reconciled 05/15/24 by Page Prather MD atorvastatin 10 mg PO DAILY bguxxhtbio-foywfjcvxilxv-udfq 50-300-40 mg (Fioricet) 1 - 2 caps PO Q4-6H PRN clonidine HCl 0.1 mg PO BID cyclobenzaprine 5 mg PO .prn diclofenac sodium 1% dime size amount topically 4 times a day; apply to affected joint QID PRN dicyclomine 10 mg PO DAILY dulaglutide (Trulicity) 3 mg subcut QWEEK estradiol 1 patch transdermal .weekly hydrochlorothiazide 25 mg PO DAILY losartan 25 mg PO DAILY magnesium oxide 400 mg PO BEDTIME 30 days metformin 1,000 mg PO BID metoprolol succinate ER 100 mg PO DAILY omeprazole magnesium (Prilosec OTC) 20 mg PO DAILY onabotulinumtoxinA (Botox) 200 units IM ONCE 12 weeks riboflavin (vitamin B2) 400 mg PO DAILY 30 days sumatriptan succinate 50 - 100 mg orally at onset of headache, may repeat in 2 hrs PRN; max 2 tabs per day or 4 tabs/week (may take with Tylenol) 30 days zolpidem 5 mg PO BEDTIME PRN Do you need a note to return to daycare/school/sports/work: Yes (Needs a work note.) Return to daycare/school/sports/work/other note: work HPI Comments Details: ? 59y/o female comes for treatment of migraines with botox. How many migraine days prior to botox-25-30 days How long do the migraines last 1-2 days Intensity of migraine 8-04/26 ER visits related to migraine- 3 Effectiveness of botox from last two treatment(s) How many migraine days since receiving treatment: Change? in intensity of migraine?3-8 Change in frequency of migraine? 3-4/month Change in use of acute medication for migraine? decreased Change in quality of life?improved ER visits related to migraine?none Have at least three months elapsed since last treatment (Last botox date - frequency of injections) 02/07 she had 5 days of migraine last month ??? Most frequent reported adverse reactions following injection of botox for chronic migraine include neck pain (9%), headache(5%), eyelid ptosis(4%), migraine(4%), muscular weakness(4%), musculuskeletal stiffness(4%), bronchitis(3%), injection site pain (3%), musculoskeletal pain(3%), myalgia(3%), facial paresis(2%), HTN(2%) and muscle spasms(2%) were discussed in detail. ??? Botulinum toxin typeA 200units Lot no [id number] expiration Aug 2026 was diluted with 4 cc of normal saline . ??? Muscles injected- ??? Frontalis 4 sites ??? Procerus 1 site ???Corrugators 2 sites ??? Temporalis- 8 sites ??? Occipitalis- 6 sites ??? Cervical paraspinals- 4 sites ??? Trapezius- 6 sites- ??? 5 units each in 31 site ??? Total use- 155units ??? Discarded-45units [facility] Medical History Chronic migraine without aura, intractable, without status migrainosus Insomnia Fibromyalgia Chronic constipation Bilateral cataracts Anxiety Diverticulosis Mucinous cystadenocarcinoma of right ovary Rectal prolapse Mild mitral regurgitation Diabetes HTN (hypertension) PEGGY (obstructive sleep apnea) Arthritis Surgical History H/O lateral meniscus repair of right knee H/O repair of rotator cuff H/O: hysterectomy Family History Maternal Grandmother Colon cancer Social History Alcohol intake: never Patient Tobacco Use Status: Never used Tobacco Physical Exam Vital Signs: Last Vital Signs BP 114/76 05/15/24 15:26 Const General: cooperative and no acute distress Orientation/consciousness: patient oriented x3 Resp Effort & Inspection: normal respiratory effort and able to speak in complete sentences Neuro General: patient oriented x3 Cognition (Neuro): normal cognition Psych Appearance: grossly normal Mental Status: mental status grossly normal Speech and movement: Normal speech and movement present Affect: normal affect Attitude: cooperative Office Procedures Botulinum toxin Injection 40301 - Migraine Procedure code (CPT) selection complete Office Meds onabotulinumtoxinA 200 unit solution for injection Performing Provider: Page Prather MD Performing Location: [facility] [place] [facility] Administered by: Page Prather MD on 05/15/24 15:45 Dose Route Admin Location Dispensed Lot Number Expiration Date [facility] Emergency Generator Mechanic 155 unit subcut 200 units [id number] ALLERGAN/BOTOX Comments: see HPI Assessment & Plan Assessment & Plan (1) Migraine with aura, intractable, without status migrainosus: Code(s): G43.119 - Migraine with aura, intractable, without status migrainosus Category: Medical (2) Chronic migraine without aura: Code(s): G43.709 - Chronic migraine without aura, not intractable, without status migrainosus Category: Medical Qualifiers: Status migrainosus presence: without status migrainosus Intractability: intractable Qualified Code(s): G43.719 - Chronic migraine without aura, intractable, without status migrainosus (3) Chronic migraine without aura, intractable, without status migrainosus: Code(s): G43.719 - Chronic migraine without aura, intractable, without status migrainosus Category: Medical Plan Patient tolerated the procedure well SHe will call with any side effects Orders: Orders AMB Botulinum toxin Injection Today G43.719 - Chronic migraine without aura, intractable, without status migrainosus Medications: New onabotulinumtoxinA 200 units subcut ONCE 1 ea 0RF migraine G43.719 - Chronic migraine without aura, intractable, without status migrainosus Coding Level of Care Code Est Pt Level 1 (86445) Diagnoses Migraine with aura, intractable, without status migrainosus G43.119 Intractable chronic migraine without aura and without status migrainosus G43.719 Status migrainosus presence: without status migrainosus Intractability: intractable Chronic migraine without aura, intractable, without status migrainosus G43.719 CPT Codes Botox Injection - Botox 3: 64340 - Migraine ([id number])
== END 2024-05-15 15:43 | disposition home or self-care (01) ==
LOC: HO.HSMS 14:57
PROVIDERS: PCP Internal Medicine; Visit Provider Psychiatry & Neurology Neurology
DX: G43.E19 Chronic migraine with aura, intractable, without status migrainosus (principal)
CPT/HCPCS: 64615

== ENCOUNTER → 2024-05-15 14:56 | Outpatient (BNVA) | payer OTHER, SELFPAY | PROVIDERS: PCP Internal Medicine; Visit Provider Psychiatry & Neurology Neurology | DX: G43.E19 Chronic migraine with aura, intractable, without status migrainosus (principal) | CPT/HCPCS: 64615; 99211; J0585 ==

== ENCOUNTER 2024-08-30 15:15 | Outpatient (AMB) | payer OTHER, SELFPAY ==
--- OUTSIDE RECORDS SUMMARY | 2024-08-30 15:18 | XMS_ITS | Clinical Summary ---
Author Organization [facility] [address] [facility] Address [address] [place] [address] Phone Care Team Providers [facility] [employer] Name Role Phone Olivier Hilario MD Primary Care Provider Allergies Active Allergy Reactions Criticality Noted Date Comments Amoxicillin 07/20/2024 Ibuprofen 07/20/2024 Medications riboflavin (VITAMIN B2) 400 mg tablet TOME DELMI TABLETA TODOS LOS D *NC BY INS* 02/23/20 24 Active metoprolol succinate (TOPROL-XL) 100 mg 24 hr tablet TOME DELMI TABLETA TODOS LOS D Active metFORMIN (GLUCOPHAGE) 1,000 mg tablet Take 1 tablet (1,000 mg total) by mouth. 07/10/20 23 Active losartan (COZAAR) 100 mg tablet Take 1 tablet (100 mg total) by mouth. 09/25/19 24 Active LORazepam (ATIVAN) 0.5 mg tablet TOME 1 TABLETA POR V A ORAL TODOS LOS D CUANDO SEA NECESARIO Active ferrous sulfate 325 mg (65 mg elemental iron) tablet Take 1 tablet (325 mg total) by mouth. 07/04/20 24 Active estradioL (VIVELLE-DOT) 0.025 mg/24 hr APPLY 1 PATCH TWICE A WEEK BY TRANSDERMAL ROUTE FOR 84 DAYS. 04/23/20 24 Active Trulicity 3 mg/0.5 mL pen injector injection INJECT 0.5ML POR V A SUBCUT WU EVERY WEEK Active cyanocobalamin (VITAMIN B-12) 1,000 mcg tablet TOME 1 TABLETA POR V A ORAL TODOS LOS D 05/16/20 24 Active cloNIDine (CATAPRES) 0.2 mg tablet TOME 1 TABLETA POR V A ORAL TODOS LOS D AL ACOSTARSE Active Vitamin D3 25 mcg (1,000 unit) capsule TAKE 1 CAPSULE BY MOUTH DAILY, STOP 50,000 UNITS CAPSULES 06/26/20 24 Active atorvastatin (LIPITOR) 10 mg tablet See Instructions, TOME DELMI TABLETA TOFELIPE, # 90 tablet, 4 Refills, Maintenance, 08/05/23 2:54:00 PM EST, [facility]/pharmacy #[id number], 145, cm, 06/23/23 13:10:00 EST, Height, 57.09, kg, 04/25/23 15:13:00 EDT, Dry Weight 08/05/19 24 Active famotidine (PEPCID) 40 mg tabletIndicatio ns:Gastroesopha geal reflux disease without esophagitis Take 1 tablet (40 mg total) by mouth 2 (two) times a day. 180 each 3 07/20/19 25 026 Active omeprazole (PriLOSEC) [address] capsule TOME DELMI CAPSULA TODOS LOS WORTHY 90 capsule 3 08/08/19 25 Active omeprazole (PriLOSEC) [address] capsule TOME DELMI C PSULA TODOS LOS D 05/07/20 24 025 Discontinued Active Problems Problem Noted Date Diagnosed Date Diverticulitis of ascending colon 07/20/2024 Diverticulitis large intesti ne w/o perforation or abscess w/o bleeding 07/20/2024 Overview (07/20/2024): S/p sigmoid colectomy 2010 Dr. White HTN (hypertension) 07/20/2024 Gastroesophageal reflux disease without esophagi tis 07/20/2024 Assessment & Plan (07/20/2024 3:24 PM EST): Orders: famotidine (PEPCID) 40 mg tablet; Take 1 tablet (40 mg total) by mouth 2 (two) times a day. discontinue omeprazole for now due to vitamin B12 deficiency Diabetes 07/20/2024 Hyperlipidemia 07/20/2024 Migraines 07/20/2024 Liver hemangioma 07/20/2024 Ovarian cancer 07/20/2024 Overview (07/20/2024): 2002 S/P KALIN-BSO 07/20/2024 Overview (07/20/2024): 2003 S/P colon resection 07/20/2024 Overview (07/20/2024): Along with TAHBSO 2002 for mass on colon(ovarian cancer) Hx of right knee surgery 07/20/2024 Encounters Date Type Department Care Team Description 07/26/2024 Telephone Gastroenterology - [address] [place] [address] Ekaterina Linares ID 07/20/2024 1:00 PM EST Office Visit Gastroenterology - [address] [place] [address] Rosalie Hernandez PA Iron deficiency anemia, unspecified iron deficiency anemia type (Primary Dx); Vitamin B12 deficiency; Change in bowel movement; Gastroesophageal reflux disease without esophagitis 07/20/2024 Telephone Gastroenterology - [address] [facility] [address] [place] [address] Dylon Yeh MD from Last 3 Months Surgical History Surgery Date Site/Laterality Comments COLONOSCOPY 10/16/2020 - 11/14/2020 sigmoid tics (10 yr) ESOPHAGOGASTRODUODENOSCOPY 10/16/2020 - 11/14/2020 nl small bowel and gastri bx COLONOSCOPY 10/16/2012 - 11/14/2012 diverticulosis throughout colon, int rhoids, friability of left colon, inflammation on bx without findings of chronic colitis(10 yr) Social History Tobacco Use Types Packs/Day Years Used Date Smoking Tobacco: Never Assessed Comments Unknown Sex and Gender Information Value Date Recorded Sex Assigned at Not on file Legal Sex Female 7:02 AM EST Gender Identity Not on file Sexual Orientation Not on file Obstetrics History Last Filed Vital Signs Vital Sign Reading Time Taken Comments Blood Pressure - - Pulse - - Temperature - - Respiratory Rate - - Oxygen Saturation - - Inhaled Oxygen Concentration - - Weight 54.4 kg (120 lb) 07/20/2024 12:56 PM EST Height 144.8 cm (4' 9 ) 07/20/2024 12:56 PM EST Body Mass Index 25.97 07/20/2024 12:56 PM EST Plan of Treatment Upcoming Encounters Date Type Department Care Team (Late st Contact Info) Description 09/14/2024 8:00 AM EST Appointment [facility] Endoscopy [address] [place] [phone] Dylon Yeh MD [address] [address] 09/26/2024 3:00 PM EDT Office Visit Gastroenterology - [address] [phone] Rosalie Hernandez PA [address] [address] Health Maintenance Due Date Last Done Comments Breast Cancer Screening 1964 Diabetes: Annual GFR (Glomerular Filtration Rate) 1964 Diabetes: Annual Foot Exam 1974 Diabetes: Annual Retina Eye Exam 1974 Cervical Cancer Screening: Pap Smear 1985 Cholesterol Screening (Lipid Panel) 06/20/2022 Colorectal Cancer Screening: Colonoscopy 06/20/2022 Depression Screening 06/20/2022 HIV Screening 06/20/2022 Hepatitis C Screening 06/20/2022 Social Influencers of Health Screening 06/20/2022 RSV Immunization Patients 60+ Years Old (1 - Risk 60-74 years 1-dose series) 2024 Diabetes: Annual Urine Albumin-Creatinine Ratio (uACR) 07/20/2024 Diabetes: Blood Sugar Control Test (HGBA1C) 07/20/2024 Hypertension/CHF/CAD Annual BMP Blood Test 07/20/2024 Hepatitis A Vaccines (2 of 2 - Risk 2-dose series) 09/26/2024 03/29/2024 DTaP,Tdap,and Td Vaccines (5 - Td or Tdap) 05/23/2028 05/23/2018, 08/31/2016, 09/03/2007, Additional history exists Zoster Vaccines Completed 01/16/2019, 09/27/2018 Pneumococcal Vaccine: 50+ Years Completed 09/22/2023, 10/24/2014 Pneumococcal Vaccine: Pediatrics (0 to 5 Years) and At-Risk Patients (6 to 64 Years) Completed 09/22/2023, 10/24/2014 COVID-19 Vaccine Completed 04/20/2024, , 04/13/2022, Additional history exists Influenza Vaccine Completed 04/20/2024, , 05/17/2023, Additional history exists Hepatitis B Vaccines Completed 05/01/2024, 03/29/2024, 03/08/2003, Additional history exists HIB Vaccines Aged Out No longer eligi ble based on patient's age to complete this topic HPV Vaccines Aged Out No longer eligi ble based on patient's age to complete this topic IPV Vaccines Aged Out No longer eligi ble based on patient's age to complete this topic MMR Vaccines Aged Out No longer eligi ble based on patient's age to complete this topic Meningococcal ACWY Vaccine Aged Out N o longer eligible based on patient's age to complete this topic Meningococcal B Vacine Aged Out No lo nger eligible based on patient's age to complete this topic RSV Immunization Patients Under 20 months Aged Out No longer eligible based on patient's age to complete this topic Varicella Vaccines Aged Out No longer eligible based on patient's age to complete this topic Procedures Procedure Name Priority Date/Time Associated Diagnosis Comments IMMUNOGLOBULIN A SUBCLASSES Routine 07/23/2024 2:34 PM EST Change in bowel movement Vitamin B12 deficiency (non anemic) Iron deficiency anemia, unspecified CBC WITH AUTO DIFFERENTIAL Routine 07/23/2024 2:34 PM EST Iron deficiency anemia, unspecified iron deficiency anemia type Vitamin B12 deficiency FERRITIN Routine 07/23/2024 2:34 PM EST Change in bowel movement Vitamin B12 deficiency (non anemic) Iron deficiency anemia, unspecified IRON AND TIBC Routine 07/23/2024 2:34 PM EST Change in bowel movement Vitamin B12 deficiency (non anemic) Iron deficiency anemia, unspecified ENDOMYSIAL ANTIBODY, IGA Routine 025 2:34 PM EST Iron deficiency anemia, unspecified iron deficiency anemia type Vitamin B12 deficiency Change in bowel movement TISSUE TRANSGLUTAMINASE, IGA Routine 07/23/2024 2:34 PM EST Iron deficiency anemia, unspecified iron deficiency anemia type Vitamin B12 deficiency Change in bowel movement VITAMIN B12 AND FOLATE Routine 2:34 PM EST Iron deficiency anemia, unspecified iron deficiency anemia type Vitamin B12 deficiency CBC AND DIFFERENTIAL Routine 07/23/2024 2:34 PM EST Iron deficiency anemia, unspecified iron deficiency anemia type Vitamin B12 deficiency GASTROINTESTINAL PATHOGENS BY PCR Routine 07/23/2024 2:14 PM EST Change in bowel movement CLOSTRIDIUM DIFFICILE TOXIN Routine 07/23/2024 2:14 PM EST Change in bowel movement from Last 3 Months Results * (ABNORMAL) Vitamin B12 and folate (07/23/2024 2:34 PM EST) Vitamin B-12 619 250 - 900 pcg/mL LAB CHEMISTRY METHOD 07/23/2024 6:00 PM EST [facility] Folate >20.0(H) 2.8 - 17.0 ng/ml LAB CHEMISTRY METHOD 07/23/2024 6:00 PM EST [facility] Blood Venous blood specimen / Unknown Venipuncture / Unknown 07/23/2024 2:34 PM EST 07/23/2024 4:20 PM EST us Rosalie CASTREJON LAB BLOOD ORDERABLES Final R esult [facility] [address] [place] [address], [place] [phone] * Immunoglobulin A subclasses (07/23/2024 2:34 PM EST) IgA Subclass 1 174 46 - 378 mg/dL 07/31/2024 4:38 PM EST [facility] IgA Subclass 2 25 13 - 91 mg/dL 07/31/2024 4:38 PM EST [facility] IgA Total 200 47 - 310 mg/dL 07/31/2024 4:38 PM EST [facility] Comment: Test Performed at: [facility] [id number] [place], [place] ??[phone] ? I Darling WILSON, PhD, VANNA Blood Venous blood specimen / Unknown Venipuncture / Unknown 07/23/2024 2:34 PM EST 07/23/2024 4:20 PM EST Rosalie CASTREJON LAB BLOOD ORDERABLES Final R esult [facility] [address] [place] [address] * Endomysial antibody, IgA (07/23/2024 2:34 PM EST) Pathologist [facility] Endomysial IgA Negative Negative 07/25/2024 2:36 PM EST [facility] Blood Venous blood specimen / Unknown Venipuncture / Unknown 07/23/2024 2:34 PM EST 07/23/2024 4:20 PM [facility] BLOOD ORDERAB[facility] Final R esult [facility] [address] [place] [address], * (ABNORMAL) CBC auto differential (07/23/2024 2:34 PM EST) WBC 7.5 4.8 - 10.8 K/[facility] LAB HEMETOLOGY METHOD 07/23/2024 4:29 PM EST [facility] RBC 4.00 3.80 - 4.80 M/[facility] LAB HEMETOLOGY METHOD 07/23/2024 4:29 PM EST [facility] Hemoglobin 11.3(L) 11.5 - 16.0 g/dL LAB HEMETOLOGY METHOD 07/23/2024 4:29 PM [facility] Hematocrit 37.4 35.0 - 47.0 % LAB HEMETOLOGY METHOD 07/23/2024 4:29 PM [facility] MCV 93.7 79.0 - 98.0 FL LAB HEMETOLOGY METHOD 07/23/2024 4:29 PM [facility] MCH 28.3 27.0 - 32.0 pcg LAB HEMETOLOGY METHOD 07/23/2024 4:29 PM [facility] MCHC 30.2(L) 32.0 - 37.0 g/dL LAB HEMETOLOGY METHOD 07/23/2024 4:29 PM [facility] RDW 14.4 11.0 - 15.0 % LAB HEMETOLOGY METHOD 07/23/2024 4:29 PM [facility] Platelets 215 130 - 400 K/mcL LAB HEMETOLOGY METHOD 07/23/2024 4:29 PM [facility] MPV 10.3 7.0 - 11.0 FL LAB HEMETOLOGY METHOD 07/23/2024 4:29 PM [facility] NRBC 0.0 <1.0 % LAB HEMETOLOGY METHOD 07/23/2024 4:29 PM [facility] NRBC Absolute 0.00 <0.10 K/mcL LAB HEMETOLOGY METHOD 07/23/2024 4:29 PM [facility] Neutrophils Relative 59.1 % LAB HEMETOLOGY METHOD 07/23/2024 4:29 PM [facility] Lymphocytes Relative 31.5 % LAB HEMETOLOGY METHOD 07/23/2024 4:29 PM [facility] Monocytes Relative 6.8 % LAB HEMETOLOGY METHOD 07/23/2024 4:29 PM [facility] Eosinophils Relative 1.7 % LAB HEMETOLOGY METHOD 07/23/2024 4:29 PM [facility] Basophils Relative 0.5 % LAB HEMETOLOGY METHOD 07/23/2024 4:29 PM [facility] Immature Granulocytes Relative 0.4 % LAB HEMETOLOGY METHOD 07/23/2024 4:29 PM [facility] Neutrophils Absolute 4.44 1.50 - 7.00 K/mcL LAB HEMETOLOGY METHOD 07/23/2024 4:29 PM [facility] Lymphocytes Absolute 2.37 1.00 - 5.00 K/mcL LAB HEMETOLOGY METHOD 07/23/2024 4:29 PM [facility] Monocytes Absolute 0.51 0.20 - 1.00 K/mcL LAB HEMETOLOGY METHOD 07/23/2024 4:29 PM [facility] Eosinophils Absolute 0.13 0.00 - 0.50 K/mcL LAB HEMETOLOGY METHOD 07/23/2024 4:29 PM [facility] Basophils Absolute 0.04 0.00 - 0.20 K/mcL LAB HEMETOLOGY METHOD 07/23/2024 4:29 PM [facility] Immature Granulocytes Absolute 0.03 0.00 - 0.03 K/mcL LAB HEMETOLOGY METHOD 07/23/2024 4:29 PM [facility] Blood Venous blood specimen / Unknown Venipuncture / Unknown 07/23/2024 2:34 PM EST 07/23/2024 4:21 PM EST us Rosalie CASTREJON LAB BLOOD ORDERABLES Final R esult [facility] [address] [place] [address], * (ABNORMAL) Iron and TIBC (07/23/2024 2:34 PM EST) Iron 49 40 - 150 mcg/dL LAB CHEMISTRY METHOD 07/23/2024 6:00 PM [facility] TIBC 370 250 - 450 mcg/dL LAB CHEMISTRY METHOD 07/23/2024 6:00 PM [facility] Iron Saturation 13(L) 15 - 50 % LAB CHEMISTRY METHOD 07/23/2024 6:00 PM [facility] Blood Venous blood specimen / Unknown Venipuncture / Unknown 07/23/2024 2:34 PM EST 07/23/2024 4:20 PM EST Rosalie CASTREJON LAB BLOOD ORDERABLES Final R esult [facility] [address] [place] [address], [place] [phone] * Tissue transglutaminase, IgA (07/23/2024 2:34 PM EST) Tissue Transglutaminase Ab, IgA Quant 1 <4 unit/mL LAB CHEMISTRY METHOD 07/25/2024 10:25 AM [facility] Tissue Transglutaminase Ab, IgA Negative Negative LAB CHEMISTRY METHOD 07/25/2024 10:25 AM [facility] Blood Venous blood specimen / Unknown Venipuncture / Unknown 07/23/2024 2:34 PM EST 07/23/2024 4:20 PM EST Rosalie CASTREJON LAB BLOOD ORDERABLES Final R esult [facility] [address] [place] [address], [place] [phone] * Ferritin (07/23/2024 2:34 PM EST) Ferritin 8 8 - 252 ng/mL LAB CHEMISTRY METHOD 07/23/2024 6:02 PM EST [facility] Blood Venous blood specimen / Unknown Venipuncture / Unknown 07/23/2024 2:34 PM EST 07/23/2024 4:20 PM EST us Rosalie CASTREJON LAB BLOOD ORDERABLES Final R esult [facility] [address] [place] [address], [place] [phone] * Gastrointestinal pathogens molecular study (07/23/2024 2:14 PM EST) Campylobacter Detection by PCR Not Detected Not Detected LAB MICROBIOLOGY METHOD 5 6:27 PM EST [facility] Plesiomonas shigelloides Detection by PCR Not Detected Not Detected LAB MICROBIOLOGY METHOD 5 6:27 PM [facility] Salmonella Detection by PCR Not Detected Not Detected LAB MICROBIOLOGY METHOD 5 6:27 PM [facility] Vibrio Detection by PCR Not Detected Not Detected LAB MICROBIOLOGY METHOD 5 6:27 PM [facility] Vibrio cholerae Detection by PCR Not Detected Not Detected LAB MICROBIOLOGY METHOD 5 6:27 PM [facility] Yersinia enterocolitica Detection by PCR Not Detected Not Detected LAB MICROBIOLOGY METHOD 5 6:27 PM [facility] Enteroaggregative E coli EAEC Detection by PCR Not Detected Not Detected LAB MICROBIOLOGY METHOD 5 6:27 PM [facility] Enteropathogenic E coli EPEC Detection Not Detected Not Detected LAB MICROBIOLOGY METHOD 5 6:27 PM [facility] Enterotoxigenic E coli ETEC LTST Detection Not Detected Not Detected LAB MICROBIOLOGY METHOD 5 6:27 PM [facility] Shiga-like toxin producing E coli STEC STX1 STX2 Det Not Detected Not Detected LAB MICROBIOLOGY METHOD 5 6:27 PM [facility] Shigella Enteroinvasive E coli EIEC Detection Not Detected Not Detected LAB MICROBIOLOGY METHOD 5 6:27 PM [facility] Cryptosporidium Detection by PCR Not Detected Not Detected LAB MICROBIOLOGY METHOD 5 6:27 PM [facility] Cyclospora cayetanensis Detection by PCR Not Detected Not Detected LAB MICROBIOLOGY METHOD 5 6:27 PM [facility] Entamoeba histolytica Detection by PCR Not Detected Not Detected LAB MICROBIOLOGY METHOD 5 6:27 PM [facility] Giardia lamblia Detection by PCR Not Detected Not Detected LAB MICROBIOLOGY METHOD 5 6:27 PM [facility] Adenovirus F 40 41 Detection by PCR Not Detected Not Detected LAB MICROBIOLOGY METHOD 5 6:27 PM [facility] Astrovirus Detection by PCR Not Detected Not Detected LAB MICROBIOLOGY METHOD 5 6:27 PM [facility] Norovirus GI GII Detection by PCR Not Detected Not Detected LAB MICROBIOLOGY METHOD 5 6:27 PM [facility] Sapovirus Detection by PCR Not Detected Not Detected LAB MICROBIOLOGY METHOD 5 6:27 PM [facility] Rotavirus A Detection by PCR Not Detected Not Detected LAB MICROBIOLOGY METHOD 5 6:27 PM [facility] Stool Rectum structure / Unknown Non-blood Collection / Unknown 07/23/2024 2:14 PM EST 07/23/2024 4:15 PM EST [facility] - 07/23/2024 6:27 PM EST PCR testing is much more sensitive than traditional techniques and allows for the detection of low numbers of stool pathogens. The clinical correlation of PCR results with the need for treatment and clinical outcomes has not been established. Therefore the results of PCR testing for stool pathogens must be taken into clinical context when making treatment decisions. This is a diagnostic test only, repeat testing for cure is not advised. You may consider infectious disease consult for additional guidance. ??Testing Performed by [facility] Rosalie [facility] LAB MICROBIOLOGY - GENERAL O RDERABLES Final Result Performing Organization Address [facility] Co de Phone Number [facility] [address] [place] [address], [place] [phone] * Clostridium difficile toxin (07/23/2024 2:14 PM EST) Clostridium difficile GDH Antigen Negative Negative 07/23/2024 6:20 PM EST [facility] C difficile Toxins A+B, EIA Negative Negative 07/23/2024 6:20 PM EST [facility] Comment:NEGATIVE FOR TOXIN P RODUCING CLOSTRIDIOIDES DIFFICILE, NO ADDITIONAL TESTING IS NECESSARY. 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 Health Care Decision (hx) 11/11/2010 AD BORRERO DIRECTIVE Health Care Decision (hx) 11/11/2010 AD BORRERO DIRECTIVE Health Care Decision (hx) 11/11/2010 AD BORRERO DIRECTIVE Health Care Decision (hx) 11/11/2010 AD BORRERO DIRECTIVE Health Care Decision (hx) 11/11/2010 AD BORRERO DIRECTIVE Health Care Decision (hx) 11/11/2010 AD BORRERO DIRECTIVE Health Care Decision (hx) 11/11/2010 AD BORRERO DIRECTIVE Health Care Decision (hx) 11/11/2010 AD BORRERO DIRECTIVE Care Teams [employer] Relationship Specialty Start Date End Date Olivier Hilario MD [address] [place] [id number] PCP - General Internal Medicine 07/04/24
--- OUTSIDE RECORDS SUMMARY | 2024-08-30 15:18 | XMS_ITS | Continuity of Care Document ---
Author Organization [facility] Address [address] [place] [address]- Care Team Providers Care Advertising Sales Representative Name Role Phone Olivier Hilario MD Primary Care Physician Encounter [facility] Date(s): 07/22/24 - 08/21/24 [facility]/[address] [address]- Encounter Type: Triage Allergies, Adverse Reactions, Alerts Substance Criticality Severity Reaction Reaction Severity Status ibuprofen abdominal pain Activ e amoxicillin 1, 2 Act natalia topiramate mental confusion Ac tive 1tolerated cefpodoxime w/o problem 2At 11/21/19 outpt visit, pt reported reaction to amoxicillin was an ulcer in her intestines and endedup hospitalized. Denies having had any rash. Also no SOB, no throat tightening, no low bp, no dizziness. Immunizations Given and Recorded Vaccine Date Status Refusal Reason hepatitis B adult vaccine 05/01/24 Given hepatitis B adult vaccine 03/29/24 Given hepatitis B adult vaccine 03/08/03 Given hepatitis B adult vaccine 10/11/02 Given hepatitis B adult vaccine 09/12/02 Given influenza virus vaccine, inactivated 04/20/24 Lencho rded influenza virus vaccine, inactivated 05/17/23 Lencho rded influenza virus vaccine, inactivated 04/13/22 Give n influenza virus vaccine, inactivated 04/05/21 Lencho rded influenza virus vaccine, inactivated 04/15/19 Lencho rded influenza virus vaccine, inactivated 1 04/15/18 Re corded influenza virus vaccine, inactivated 05/03/17 Give n influenza virus vaccine, inactivated 05/06/16 Give n SARS-CoV-2 mRNA ([id number]-nzsqb) vax 04/20/24 Recorded SARS-CoV-2 mRNA (fiuzjlk-onql-sjvap) vax 11/04/21 Recorded Hepatitis A Adult Vaccine 03/29/24 Given pneumococcal 20-valent conjugate vaccine 09/22/23 Given SARS-CoV-2(COVID-19)mRNA-LNP vac([id number]) 05/17/23 Recorded [id number] 12y+ bivalent booster vax 2 04/13/22 Recorded SARS-CoV-2 (COVID-19) mRNA BNT-162b2 vac 06/10/21 Recorded SARS-CoV-2 (COVID-19) mRNA BNT-162b2 vac 10/16/20 Recorded SARS-CoV-2 (COVID-19) mRNA BNT-162b2 vac 09/25/20 Recorded Influenza Virus Vaccine (oldterm) 04/19/20 Recorde d zoster vaccine, inactivated 01/16/19 Recorded zoster vaccine, inactivated 09/27/18 Recorded tetanus-diphtheria toxoids (Td) 05/23/18 Recorded tetanus-diphtheria toxoids (Td) 3 09/03/07 Given tetanus-diphtheria toxoids (Td) 4 07/31/98 Given tetanus/diphtheria/pertussis, acel(Tdap) 08/31/16 Given pneumococcal 23-valent vaccine 10/24/14 [facility] 2Result Comment: Admin by Sandip Hines RN 3Admin Note: done through work per history VIS 01/14/1994 4Admin Note: VIS given Medications acetaminophen/butalbital/caffeine 325 mg-50 mg-40 mg oral tablet See Instructions, TAKE 1 TABLET BY MOUTH MAY REPEAT IN 4 HRS. MAX OF 2 PER DAY ON 2 DAYS PER WEEK. MAX: 10/ CUANDO SEA NECESARIO FOR MIGRAINE HEADACHE, # 10 tablet, 5 Refills, Maintenance, 07/01/24 10:26:00 PM EST, [id number], 30, TAKE 1 TABLET BY MOUTH MAY REPEAT IN 4 HRS. MAX OF 2 PER DAY ON 2 DAYS PER WEEK. MAX: / CUANDO SEA NECESARIO FOR MIGRAINE HEADACHE, 145, cm, 05/09/24 15:36:00 EDT, Height, 57.54, kg, 03/29/24 15:48:00 EDT, Dry Weight Start Date: 07/01/24 Status: Ordered Quantity: 10.0 Unit: tablet Repeat number: 6 Aspirin Low Dose 81 mg oral delayed release tablet 1 tablet = 81 mg, By Mouth, Daily, # 90 tablet, 4 Refills, Maintenance, 09/25/23 6:08:00 PM EDT, [id number], [place], 145, cm, 09/22/23 15:36:00 EST, Height, 57.6, kg, 09/22/23 15:36:00 EST, Dry Weight Start Date: 09/25/23 Status: Ordered Quantity: 90.0 Unit: tablet Repeat number: 5 atorvastatin 10 mg oral tablet See Instructions, TOME DELMI TABLETA TODOS LOS WORTHY, # 90 tablet, 4 Refills, Maintenance, 08/05/23 2:54:00 PM EST, [facility][id number], 145, cm, 06/23/23 13:10:00 EST, Height, 57.09, kg, 04/25/23 15:13:00 EDT, Dry Weight Start Date: 08/05/23 Status: Ordered Quantity: 90.0 Unit: tablet Repeat number: 5 carbamide peroxide 6.5% otic solution See Instructions, 5 alternating ears daily keeping ear upwards for 5min after gtts for 2 wks. May repeat monthly or as needed., # 30 mL, 2 Refills, Maintenance, 07/04/22 1:45:00 PM EST, [facility] #[id number], 5 alternating ears daily keeping ear upwards for 5min after gtts for 2 wks. May repeat monthly or as needed., 145, cm, 07/01/22 15:11:00 EST, Height, 58.4, kg, 08/26/21 7:15:00 EST, Dry Weight Start Date: 07/04/22 Status: Ordered Quantity: 30.0 Unit: mL Repeat number: 3 cetirizine 10 mg oral tablet See Instructions, TOME 1 TABLETA POR VIA ORAL TODOS LOS WORTHY, # 90 tablet, 1 Refills, Maintenance, 04/30/24 10:37:00 AM EDT, [facility]/pharmacy #[id number], 145, cm, 03/29/24 16:16:00 EDT, Height, 57.54, kg, 03/29/24 15:48:00 EDT, Dry Weight Start Date: 04/30/24 Status: Ordered Quantity: 90.0 Unit: tablet Repeat number: 2 cloNIDine 0.2 mg oral tablet TOME DELMI TABLETA TOMCKENZIE AL ACOSTARSE Start Date: 09/25/23 Status: Ordered Repeat number: 1 dicyclomine 10 mg oral capsule 1 capsule = 10 mg, By Mouth, 4 times a day, PRN Diarrhea, # 28 capsule, 0 Refills, Maintenance, 10/02/20 10:42:00 AM EDT, Capsule, Partial fill upon patient request if the prescription is for a schedule II opioid drug. Start Date: 10/02/20 Stop Date: 10/09/20 Status: Ordered Quantity: 28.0 Unit: capsule Repeat number: 1 dulaglutide 3 mg/0.5 mL subcutaneous solution 0.5 mL = 3 mg, Subcutaneous Injection, Every week, rotate injection sites dose increase, if not available, continue 1.5mg/wk, # 2 mL, 11 Refills, Maintenance, 03/29/24 3:58:00 PM EDT, Solution, [id number], 145, cm, 03/29/24 15:48:00 EDT, Height, 57.54, kg, 03/29/24 15:48:00 EDT, Dry Weight Start Date: 03/29/24 Status: Ordered Quantity: 2.0 Unit: mL Repeat number: 12 Estradiol Patch 0.025 mg/24 hours twice weekly transdermal film, extended release APPLY 1 PATCH TWICE A WEEK BY TRANSDERMAL ROUTE FOR 84 DAYS. Start Date: 09/25/23 Status: Ordered Repeat number: 1 famotidine 40 mg oral tablet TOME 1 TABLETA POR V A ORAL DOS VECES AL MARTI Hernandez, # 180 Start Date: 08/15/24 Status: Ordered Quantity: 180.0 Unit: Repeat number: 1 ferrous sulfate 325 mg oral tablet 1 tablet = 325 mg, By Mouth, Every Tuesday, Tuesday and Tuesday, for improved absorption, may take with vitamin C or 1/4 cup of orange juice 1/2 hour before eating, # 39 tablet, 4 Refills, Maintenance, 07/04/24 7:23:00 AM EST, [id number], 145, cm, 07/03/24 15:48:00 EST, Height, 57.181, kg, 07/03/24 15:48:00 EST, Dry Weight Start Date: 07/04/24 Status: Ordered Quantity: 39.0 Unit: tablet Repeat number: 5 Flexeril 10 mg oral tablet 0.5, tablet, By Mouth, 3 times a day, PRN, # 30 tablet, Refills 0, Maintenance, for spasm, 10/02/20 10:41:00 AM EDT, Partial fill upon patient request if the prescription is for a schedule II opioid drug. Start Date: 10/02/20 Status: Ordered Quantity: 30.0 Unit: tablet Repeat number: 1 Flonase Allergy Relief 50 mcg/inh nasal spray 2 sprays = 100 mcg, Nares, Both, Daily, shake well before using, # 15.8 mL, 0 Refills, Maintenance,02/02/24 1:40:00 PM EDT, [place], [facility][id number], Partial fill upon patient request if the prescription is for a schedule II opioid drug., 145, cm, 02/02/24 13:05:00 EDT, Height, 57.6, kg, 09/22/23 15:36:00 EST, Dry Weight Start Date: 02/02/24 Status: Ordered Quantity: 15.8 Unit: mL Repeat number: 1 Indication: Acute upper respiratory infection, unspecified hydrochlorothiazide 25 mg oral tablet See Instructions, TOME DELMI TABLETA TODOS LOS WORTHY, # 90 tablet, Refills 3, Tot. Refills 3, Maintenance, 07/04/24 7:20:00 AM EST, Instructions Replace Required Details, Route to Pharmacy Electronically, [facility]acy #[id number], 145, cm, 07/03/24 15:48:00 EST, Height, 57.181, kg, 07/03/24 15:48:00 EST, Dry Weight Start Date: 07/04/24 Status: Ordered Quantity: 90.0 Unit: tablet Repeat number: 4 LORazepam 0.5 mg oral tablet TOME DELMI TABLETA DOS VECES AL D A CUANDO SEA NECESARIO Start Date: 07/04/22 Status: Ordered Repeat number: 1 losartan 100 mg oral tablet 1 tablet = 100 mg, By Mouth, Daily, # 90 tablet, 3 Refills, Maintenance, 09/25/23 6:16:00 PM EDT, Tablet, [facility][id number], 145, cm, 09/22/23 15:36:00 EST, Height, 57.6, kg, 09/22/23 15:36:00 EST, Dry Weight Start Date: 09/25/23 Status: Ordered Quantity: 90.0 Unit: tablet Repeat number: 4 magnesium oxide 400 mg oral tablet 1 tablet = 400 mg, By Mouth, Daily, resuming due to low magnesium test result, # 90 tablet, 3 Refills, Maintenance, 08/15/24 11:05:00 PM EST, [facility]/pharmacy #[id number], 145, cm, 07/03/24 15:48:00 EST, Height, 57.181, kg, 07/03/24 15:48:00 EST, Dry Weight Start Date: 08/15/24 Status: Ordered Quantity: 90.0 Unit: tablet Repeat number: 4 magnesium oxide 400 mg oral tablet 1 tablet = 400 mg, By Mouth, Daily, # 14 tablet, 0 Refills, Maintenance, 10/02/20 10:39:00 AM EDT, Tablet, Partial fill upon patient request if the prescription is for a schedule II opioid drug. Start Date: 10/02/20 Stop Date: 10/16/20 Status: Ordered Quantity: 14.0 Unit: tablet Repeat number: 1 metFORMIN 1000 mg oral tablet 1 tablet, By Mouth, 2 times a day, # 180 tablet, 3 Refills, Maintenance, 07/10/23 6:21:00 PM EST, [facility]/pharmacy #[id number], 145, cm, 06/23/23 13:10:00 EST, Height, 57.09, kg, 04/25/23 15:13:00 EDT, Dry Weight Start Date: 07/10/23 Status: Ordered Quantity: 180.0 Unit: tablet Repeat number: 4 metoprolol 100 mg oral tablet, extended release 150 mg, 1.5, tablet, By Mouth, Daily, # 135 tablet, Refills 3, Tot. Refills 3, Maintenance, 11/17/23 1:41:00 PM EDT, Route to Pharmacy Electronically, [facility]/pharmacy #[id number], 145, cm, 11/17/23 12:49:00 EDT, Height, 57.6, kg, 09/22/23 15:36:00 EST, Dry Weight Start Date: 11/17/23 Status: Ordered Quantity: 135.0 Unit: tablet Repeat number: 4 riboflavin 400 mg oral capsule 1 capsule = 400 mg, By Mouth, Daily, # 90 capsule, 4 Refills, Maintenance, 06/08/24 12:11:00 AM EST, [id number], 400 mg, 145, cm, 05/09/24 15:36:00 EDT, Height, 57.54, kg, 03/29/24 15:48:00 EDT, Dry Weight Start Date: 06/08/24 Status: Ordered Quantity: 90.0 Unit: capsule Repeat number: 5 Trulicity Pen 1.5 mg/0.5 mL subcutaneous solution 0.5 mL = 1.5 mg, Subcutaneous Injection, Every week, rotate injection sites, # 2 mL, 11 Refills, Maintenance, 12/27/23 3:34:00 PM EDT, Solution, [id number], only to be filled temporarilly in case the 3mg Trulicity is not avaiable, 145, cm, 12/27/23 14:57:00 EDT, Height, 57.6, kg, 09/22/23 15:36:00 EST, Dry Weight Start Date: 12/27/23 Status: Ordered Quantity: 2.0 Unit: mL Repeat number: 12 Vitamin B12 1000 mcg oral tablet 1 tablet = 1,000 mcg, By Mouth, Daily, # 90 tablet, 0 Refills, Maintenance, 05/16/24 7:44:00 AM EDT, Tablet, [id number], Partial fill upon patient request if the prescription is for a schedule II opioid drug., 145, cm, 05/09/24 15:36:00 EDT, Height, 57.54, kg, 03/29/24 15:48:00 EDT, Dry Weight Start Date: 05/16/24 Status: Ordered Quantity: 90.0 Unit: tablet Repeat number: 1 Vitamin D3 1000 intl units oral capsule 1 capsule = 25 mcg, By Mouth, Daily, # 100 capsule, 3 Refills, Maintenance, 09/23/23 1:02:00 PM EST, Capsule, [id number], 145, cm, 09/22/23 15:36:00 EST, Height, 57.6, kg, 09/22/23 15:36:00 EST, Dry Weight Start Date: 09/23/23 Status: Ordered Quantity: 100.0 Unit: capsule Repeat number: 4 Problem List Condition Confirmation Course Effective Dates Status Health Status Informant Abdominal pain Confirmed Active Anxiety disorder Confirmed Active Arthralgia Confirmed Active Cataracts, bilateral Confirmed Active Cholecystectomy Confirmed Active Chronic constipation Confirmed Active Chronic kidney disease (CKD) Confirmed Active Chronic low back pain Confirmed Active Colonic polyp 2000 Confirmed Active Daytime sleepiness Confirmed Active Diverticulosis Confirmed Active Esophagogastroduodenoscopy [egd] with Closed Biopsy 1 Confirmed Active Fibromyalgia syndrome Confirmed 11/28/09 Active Focal nodular hyperplasia Confirmed 10/07/10 Active Trigger point of head Confirmed Active Hepatic hemangioma - per MRI Confirmed 07/2020 Active Hypertension Confirmed Active Insomnia Confirmed Active Iron deficiency Confirmed 2023 Active Migraine Confirmed Active Mild mitral regurgitation 2 Confirmed Active 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 Dr. Caro. 3 Confirmed 12/2002 Active Obstructive sleep apnea syndrome Confirmed Active Osteoarthritis of joint of toe of right foot Confirmed Active Overweight Confirmed Active Palpitations- 27 day monitor 2019, 14 day 2023. PACs, 15 beat max SVT, improved sx w/ metoprolol Confirmed 2019 Active Rectal prolapse Confirmed Active Sigmoid resection for recurrent diverticulitis & small bowel resection for complication of small enterotomy, extensive lysis of adhesions and placement of On-Q pain pump. Confirmed 10/2010 Active Trochanteric bursitis Confirmed Active Diabetes mellitus type 2, controlled, with stage 2 chronic kidney disease, without long-term current use of insulin Confirmed Active -- negative except for small hiatal hernia. 2mild, by echo 09/01. 3s/p hysterectomy and bso on chronic estrogen rx. Social History Social History Type Response Smoking Status Never (less than 100 in lifetime) entered on: 03/05/24 Sex Sex Representation Female (finding) Patient Care team information Care Team Personnel Name: Olivier Hilario MD Position: [facility] Physician - Primary Care Member Role: PCP Address: [address] [place] [address] Telecom: Care Team Related Persons Name: COLLINS LIND Insurance Providers Guarantor name: PABLO LIND [employer] Information #: 1 Payer: [facility] Member Number: NA Policy Number: NA Group Number: NA
--- OUTSIDE RECORDS SUMMARY | 2024-08-30 15:18 | XMS_ITS | Continuity of Care Document ---
Author Organization [facility] Address [address] [place] [address]- Care Team Providers Care Miller Supervisor Name Role Phone Olivier Hilario MD Primary [id number] - 08/02/24 [facility]/[address] [address]- Attending Physician: Kimmie Trinh Encounter Type: Triage Allergies, Adverse Reactions, Alerts [...] vaccine, inactivated 05/06/16 Give n SARS-CoV-2 mRNA (jkibhws-nqmx-wyswn) vax 04/20/24 Recorded SARS-CoV-2 mRNA (hxymbsr-iowk-vdxlm) vax 11/04/21 Recorded Hepatitis A Adult Vaccine 03/29/24 Given pneumococcal 20-valent conjugate vaccine 09/22/23 Given SARS-CoV-2(COVID-19)mRNA-LNP vac([id number]) 05/17/23 Recorded [id number] 12y+ bivalent booster vax 2 04/13/22 Recorded [...] pneumococcal 23-valent vaccine 10/24/14 Given 1Location History: [facility] 2Result Comment: Admin by Sandip Hines RN 3Admin Note: done through work per history VIS 01/14/1994 4Admin Note: VIS given Medications acetaminophen/butalbital/caffeine 325 mg-50 mg-40 mg oral tablet See Instructions, TAKE 1 TABLET BY MOUTH MAY REPEAT IN 4 HRS. MAX OF 2 PER DAY ON 2 DAYS PER WEEK. MAX: / CUANDO SEA NECESARIO FOR MIGRAINE HEADACHE, # 10 tablet, 5 Refills, Maintenance, 07/01/24 10:26:00 PM EST, [facility]/pharmacy #[id number], 30, TAKE 1 TABLET BY MOUTH [...] 4 Refills, Maintenance, 09/25/23 6:08:00 PM EDT, [facility]/pharmacy #[id number], [place], 145, cm, 09/22/23 15:36:00 EST, Height, 57.6, kg, 09/22/23 15:36:00 EST, Dry Weight Start Date: 09/25/23 Status: Ordered Quantity: 90.0 Unit: tablet Repeat number: 5 atorvastatin 10 mg oral tablet See Instructions, TOME DELMI TABLETA TODOS LOS WORTHY, # 90 tablet, 4 Refills, Maintenance, 08/05/23 2:54:00 PM EST, [facility]/pharmacy #[id number], 145, cm, 06/23/23 13:10:00 EST, Height, 57.09, kg, 04/25/23 15:13:00 EDT, Dry Weight Start Date: 08/05/23 Status: Ordered Quantity: 90.0 Unit: tablet Repeat number: 5 carbamide peroxide 6.5% otic solution See Instructions, 5 alternating ears daily keeping ear upwards for 5min after gtts for 2 wks. May repeat monthly or as needed., # 30 mL, 2 Refills, Maintenance, 07/04/22 1:45:00 PM EST, [facility]/pharmacy #[id number], 5 alternating ears daily keeping ear [...] 1 Refills, Maintenance, 04/30/24 10:37:00 AM EDT, [facility]/pharmacy #[id number], 145, cm, 03/29/24 16:16:00 EDT, Height, 57.54, kg, 03/29/24 15:48:00 EDT, Dry Weight Start Date: 04/30/24 Status: Ordered Quantity: 90.0 Unit: tablet Repeat number: 2 cloNIDine 0.2 mg oral tablet CHADWICK Choudhury AL ACOSTARSE Start Date: 09/25/23 Status: Ordered [...] Date: 09/25/23 Status: Ordered Repeat number: 1 ferrous sulfate 325 mg [...] mL, 0 Refills, Maintenance,02/02/24 1:40:00 PM EDT, [place], [facility]/pharmacy #[id number], Partial fill upon patient request if [...] Replace Required Details, Route to Pharmacy Electronically, [facility]/pharmacy #[id number], 145, cm, 07/03/24 15:48:00 EST, Height, [...] Refills, Maintenance, 09/25/23 6:16:00 PM EDT, Tablet, [facility]/pharmacy #[id number], 145, cm, 09/22/23 15:36:00 EST, Height, [...] 3 Refills, Maintenance, 07/10/23 6:21:00 PM EST, [facility]/pharmacy #[id number], 145, cm, 06/23/23 13:10:00 EST, Height, 57.09, kg, 04/25/23 15:13:00 EDT, Dry Weight Start Date: 07/10/23 Status: Ordered Quantity: 180.0 Unit: tablet Repeat number: 4 metoprolol 100 mg oral tablet, extended release 150 mg, 1.5, tablet, By Mouth, Daily, # 135 tablet, Refills 3, Tot. Refills 3, Maintenance, 11/17/23 1:41:00 PM EDT, Route to Pharmacy Electronically, [facility]/pharmacy #[id number], 145, cm, 11/17/23 12:49:00 EDT, Height, 57.6, kg, 09/22/23 15:36:00 EST, Dry Weight Start Date: 11/17/23 Status: Ordered Quantity: 135.0 Unit: tablet Repeat number: 4 omeprazole 20 mg oral delayed release tablet 1 tablet = 20 mg, By Mouth, Daily, # 30 tablet, 0 Refills, Maintenance, 10/02/20 10:42:00 AM EDT, CR[facility], Partial fill upon patient request if the prescription is for a schedule II opioid drug. Start Date: 10/02/20 Status: Ordered Quantity: 30.0 Unit: tablet Repeat number: 1 riboflavin 400 mg oral capsule 1 capsule [...] on: 03/05/24 Sex Sex Representation Female (finding) Laboratory * Event Display: Non BH Lab Results Authored Date: * Olivier Hilario MD: PERFORM Event Display: Non BH Lab Results Authored Date: Small bowel biopsy: - Duodenal mucosa with preserved file and no specific pathologic changes. - Negative for increased intraepithelial lymphocytes. Antrum biopsy: - Gastric antral mucosa with no specific pathologic changes. - No Helicobacter pylori seen on H&E slide. * Olivier Hilario MD: SIGN, CARROLL Aviles MD, Emmanuelle Perez: REVIEW Event Display: Non BH Lab Results Authored Date: * Olivier Hilario MD: PERFORM Event Display: Non BH Lab Results Authored Date: Lab work from [facility] including normal CBC, ESR 13, CRP 2.3, ALT 17, creatinine 0.7, uric acid 6.3, rheumatoid factor 6 (normal), ILAN screen negative * Olivier Hilario MD: SIGN, MODIFY Emmanuelle Aviles MD: REVIEW Event Display: Non Lab Results Authored Date: * Olivier Hilario MD: PERFORM Event Display: Non Lab Results Authored Date: Gastric antrum biopsy: Mucosa with no specific pathologic change. No H. pylori bacteria identified by immunohistochemistry. Radiology * Event Display: MRI Abdomen, Non- Authored Date: * Olivier Hilario MD: PERFORM Event Display: MRI Abdomen, Non- Authored Date: MRI of the abdomen: - Liver lesion described on recent abdominal CT corresponds to 1.6 x 1.3 x 1.2 cm mass in right hepatic lobe with enhancement profile compatible with hepatic hemangioma - Diffuse fatty infiltration of the liver - Status postcholecystectomy - 10 mm T1 and T2 hypointense area within the L2 vertebra stable in size when compared to prior CT exams of 07/28/2020 and 11/18/2010 in keeping with benign finding * Emmanuelle Aviles MD: REVIEW Event Display: X-Ray Ankle/Foot, Non- Authored Date: * Apurva Chaidez S: PERFORM Event Display: Radiology Results Scanned Authored Date: * Tonya Cabrera: PERFORM Event Display: Radiology Results Scanned Authored Date: [id number] * Tonya Cabrera: MODIFY, PERFORM Event Display: Radiology Results Scanned Authored Date: Patient Care team information Care Team Personnel Name: Olivier Hilario MD Position: [facility] Physician - Primary Care Member Role: PCP Address: [address] [place] [address] Telecom: Care Team Related Persons Name: COLLINS LIND Insurance Providers Guarantor name: PABLO LIND [facility] Information #: 1 [address]ayer: [facility] Member Number: NA Policy Number: NA Group Number: NA
--- OUTSIDE RECORDS SUMMARY | 2024-08-30 15:18 | XMS_ITS | Continuity of Care Document ---
Author Organization [facility] Address [address] [place] [address]- Care Team Providers Care Assistant Professor Of Business Name Role Phone Olivier Hilario MD Primary Care Physician Encounter [facility] Date(s): 07/15/24 - 08/14/24 [facility]/[address] [address]- Encounter Type: Triage Allergies, Adverse Reactions, Alerts [...] Lencho rded influenza virus vaccine, inactivated 04/15/19 Lencoh rded influenza virus vaccine, inactivated 1 04/15/18 Re corded influenza virus vaccine, inactivated 05/03/17 Give n influenza virus vaccine, inactivated 05/06/16 Give n SARS-CoV-2 mRNA (ephdxlj-iafg-iibur) vax 04/20/24 Recorded SARS-CoV-2 mRNA (crwczik-bmbq-bzlnv) vax 11/04/21 Recorded Hepatitis A Adult Vaccine 03/29/24 Given pneumococcal 20-valent conjugate vaccine 09/22/23 Given SARS-CoV-2(COVID-19)mRNA-LNP vac(dwf950) 05/17/23 Recorded [id number] 12y+ bivalent booster vax 2 04/13/22 Recorded [...] 4 Refills, Maintenance, 09/25/23 6:08:00 PM EDT, [facility]/pharmacy #[id number], [place], 145, cm, 09/22/23 15:36:00 EST, Height, 57.6, kg, 09/22/23 15:36:00 EST, Dry Weight Start Date: 09/25/23 Status: Ordered Quantity: 90.0 Unit: tablet Repeat number: 5 atorvastatin 10 mg oral tablet See Instructions, TOME DELMI TABLETA TODOS LOS WORTHY, # 90 tablet, 4 Refills, Maintenance, 08/05/23 2:54:00 PM EST, [facility]/pharmacy #[id number], 145, cm, 06/23/23 13:10:00 EST, [...] 2 Refills, Maintenance, 07/04/22 1:45:00 PM EST, [facility]/pharmacy #[id number], 5 alternating ears daily keeping ear [...] 1 Refills, Maintenance, 04/30/24 10:37:00 AM EDT, [facility]/pharmacy #[id number], 145, cm, 03/29/24 16:16:00 EDT, Height, 57.54, kg, 03/29/24 15:48:00 EDT, Dry Weight Start Date: 04/30/24 Status: Ordered Quantity: 90.0 Unit: tablet Repeat number: 2 cloNIDine 0.2 mg oral tablet [place] BELLE LINDA ANATOLY Start Date: 09/25/23 Status: Ordered Repeat number: [...] mL, 0 Refills, Maintenance,02/02/24 1:40:00 PM EDT, [place], [facility]/pharmacy #[id number], Partial fill upon patient request if [...] Replace Required Details, Route to Pharmacy Electronically, [facility]/pharmacy #[id number], 145, cm, 07/03/24 15:48:00 EST, Height, [...] Refills, Maintenance, 09/25/23 6:16:00 PM EDT, Tablet, [facility]/pharmacy #[id number], 145, cm, 09/22/23 15:36:00 EST, Height, [...] 3 Refills, Maintenance, 07/10/23 6:21:00 PM EST, [facility]/pharmacy #[id number], 145, cm, 06/23/23 13:10:00 EST, Height, 57.09, kg, 04/25/23 15:13:00 EDT, Dry Weight Start Date: 07/10/23 Status: Ordered Quantity: 180.0 Unit: tablet Repeat number: 4 metoprolol 100 mg oral tablet, extended release 150 mg, 1.5, tablet, By Mouth, Daily, # 135 tablet, Refills 3, Tot. Refills 3, Maintenance, 11/17/23 1:41:00 PM EDT, Route to Pharmacy Electronically, [facility]/pharmacy #[id number], 145, cm, 11/17/23 12:49:00 EDT, Height, [...] Team Personnel Name: Olivier Hilario MD Position: [facility] Physician - Primary Care Member Role: PCP Address: [address] [place] [address] Telecom: Care Team Related Persons Name: COLLINS LIND Insurance Providers Guarantor name: PABLO [id number] Plan Information #: 1 Payer: [facility] Member Number: NA Policy Number: NA Group Number: NA
--- OUTSIDE RECORDS SUMMARY | 2024-08-30 15:18 | XMS_ITS | Continuity of Care Document ---
Author Organization [facility] Address [address] [place] [address]- Care Team Providers Care Scheduler Name Role Phone Olivier Hilario MD Primary Care Physician Encounter [facility] Date(s): 07/27/24 - 08/26/[address] [address] Attending Physician: Kimmie Trinh Admitting Physician: AdmtrKimmie Referring Physician: Admtr, [id number] Encounter Type: Triage Allergies, Adverse Reactions, Alerts [...] vaccine, inactivated 05/06/16 Give n SARS-CoV-2 mRNA (waqgnda-stxa-hipiv) vax 04/20/24 Recorded SARS-CoV-2 mRNA (mwbpqpg-vxhg-akmsl) vax 11/04/21 Recorded Hepatitis A Adult Vaccine 03/29/24 Given pneumococcal 20-valent conjugate vaccine 09/22/23 Given SARS-CoV-2(COVID-19)mRNA-LNP vac([id number]) 05/17/23 Recorded [id number] 12y+ bivalent booster vax 2 04/13/22 Recorded [...] Refills, Maintenance, 07/01/24 10:26:00 PM EST, [facility] #[id number], 30, TAKE 1 TABLET BY MOUTH MAY REPEAT IN 4 HRS. MAX OF 2 PER DAY ON 2 DAYS PER WEEK. MAX: 10/MONTH CUANDO SEA NECESARIO FOR MIGRAINE HEADACHE, 145, cm, 05/09/24 15:36:00 EDT, Height, 57.54, kg, 03/29/24 15:48:00 EDT, Dry Weight Start Date: 07/01/24 Status: Ordered Quantity: 10.0 Unit: tablet Repeat number: 6 Aspirin Low Dose 81 mg oral delayed release tablet 1 tablet = 81 mg, By Mouth, Daily, # 90 tablet, 4 Refills, Maintenance, 09/25/23 6:08:00 PM EDT, [facility]/pharmacy #[id number], [place], 145, cm, 09/22/23 15:36:00 EST, Height, 57.6, kg, 09/22/23 15:36:00 EST, Dry Weight Start Date: 09/25/23 Status: Ordered Quantity: 90.0 Unit: tablet Repeat number: 5 atorvastatin 10 mg oral tablet See Instructions, TOME DELMI TABLETA TODOS LOS WORTHY, # 90 tablet, 4 Refills, Maintenance, 08/05/23 2:54:00 PM EST, [facility]/pharmacy #[id number], 145, cm, 06/23/23 13:10:00 EST, Height, 57.09, kg, 04/25/23 15:13:00 EDT, Dry Weight Start Date: 08/05/23 Status: Ordered Quantity: 90.0 Unit: tablet Repeat number: 5 carbamide peroxide 6.5% otic solution See Instructions, 5 alternating ears daily keeping ear upwards for 5min after gtts for 2 wks. May repeat monthly or as needed., # 30 mL, 2 Refills, Maintenance, 07/04/22 1:45:00 PM EST, [facility]/pharmacy #[id number], 5 alternating ears daily keeping ear [...] 1 Refills, Maintenance, 04/30/24 10:37:00 AM EDT, [id number], 145, cm, 03/29/24 16:16:00 EDT, Height, 57.54, kg, 03/29/24 15:48:00 EDT, Dry Weight Start Date: 04/30/24 Status: Ordered Quantity: 90.0 Unit: tablet Repeat number: 2 cloNIDine 0.2 mg oral tablet TOME DELMI TABLETA TODOS LOS D AL ACOSTARSE Start Date: 09/25/23 Status: Ordered [...] Refills, Maintenance, 03/29/24 3:58:00 PM EDT, Solution, [facility]/pharmacy #[id number], 145, cm, 03/29/24 15:48:00 EDT, Height, [...] TABLETA POR V A ORAL DOS VECES LINDA Hernandez, # 180 Start Date: 08/15/24 Status: Ordered Quantity: 180.0 Unit: Repeat number: 1 ferrous sulfate 325 mg oral tablet 1 tablet = 325 mg, By Mouth, Every Tuesday, Tuesday and Tuesday, for improved absorption, may take with vitamin C or 1/4 cup of orange juice 1/2 hour before eating, # 39 tablet, 4 Refills, Maintenance, 07/04/24 7:23:00 AM EST, [facility]/pharmacy #[id number], 145, cm, 07/03/24 15:48:00 EST, Height, [...] mL, 0 Refills, Maintenance,02/02/24 1:40:00 PM EDT, [place], [facility]/pharmacy #[id number], Partial fill upon patient request if [...] Replace Required Details, Route to Pharmacy Electronically, [facility]/pharmacy #[id number], 145, cm, 07/03/24 15:48:00 EST, Height, [...] Refills, Maintenance, 09/25/23 6:16:00 PM EDT, Tablet, [facility]/pharmacy #[id number], 145, cm, 09/22/23 15:36:00 EST, Height, 57.6, kg, 09/22/23 15:36:00 EST, Dry Weight Start Date: 09/25/23 Status: Ordered Quantity: 90.0 Unit: tablet Repeat number: 4 magnesium oxide 400 mg oral tablet 1 tablet = 400 mg, By Mouth, Daily, resuming due to low magnesium test result, # 90 tablet, 3 Refills, Maintenance, 08/15/24 11:05:00 PM EST, [facility]/pharmacy #[id number], 145, cm, 07/03/24 15:48:00 EST, Height, [...] 3 Refills, Maintenance, 07/10/23 6:21:00 PM EST, [facility]/pharmacy #[id number], 145, cm, 06/23/23 13:10:00 EST, Height, 57.09, kg, 04/25/23 15:13:00 EDT, Dry Weight Start Date: 07/10/23 Status: Ordered Quantity: 180.0 Unit: tablet Repeat number: 4 metoprolol 100 mg oral tablet, extended release 150 mg, 1.5, tablet, By Mouth, Daily, # 135 tablet, Refills 3, Tot. Refills 3, Maintenance, 11/17/23 1:41:00 PM EDT, Route to Pharmacy Electronically, [facility]/pharmacy #[id number], 145, cm, 11/17/23 12:49:00 EDT, Height, [...] Team Personnel Name: Olivier Hilario MD Position: S Physician - Primary Care Member Role: PCP Address: [address] [place] [address]- Telecom: Care Team Related Persons Name: COLLINS LIND Insurance Providers Guarantor name: PABLO LIND [facility] Plan Information #: 1 Payer: [facility] Member Number: NA Policy Number: NA Group Number: NA
--- NOTE | 2024-08-30 15:27 | MHC.OFFVIS ---
Vital Signs 08/30/24 15:34 Height 4 ft 9 in Weight 124 lb BMI 26.8 BP 120/86 Blood Pressure Location Lt brachial Position Sitting Pulse 95 Pulse Source Pulse Oximeter Pulse Oximetry (%) 97 Oxygen Delivery Method Room Air Intake Visit Reasons: 6 month Follow up Inside Account Representative Required: No Accompanied by: Self / Same As Patient Allergies amoxicillin Adverse Reaction (Intermediate, Verified 08/30/24 15:29) Stomach Upset ibuprofen [From Motrin] Adverse Reaction (Intermediate, Verified 08/30/24 15:29) Stomach Upset HPI Comments Details: 59-yr-old female presents for f/u of chronic migraine. Patient reports overall Botox for chronic migraine has done effective. She typically only notices a breakthrough migraine with big storm. She has intermittent intense left parietal stabbing pain, lasting for seconds, without clear autonomic s/s, which can be f/b a migraine but not always. She can not have cervical/upper trap tightness, but Botox helps with this as well. She states that the previous order for Fioricet capsules was/is not as effective as the Fioricet tab she took in the past. She ask if OTC migraine cooling/ice caps can be effective for migraine treatment. She also ask exactly how Botox works- if it is just that it relaxes the muscles. Baseline headache characteristics: Severe bifrontal, berny jaws, eyes, and top of head. A/w photophobia, phonophobia, and prominent osmophobia, nausea. In the past, she had visual aura- like looking through plastic/blurring moving objects. [facility] Medical History Chronic migraine without aura, intractable, without status migrainosus Insomnia Fibromyalgia Chronic constipation Bilateral cataracts Anxiety Diverticulosis Mucinous cystadenocarcinoma of right ovary Rectal prolapse Mild mitral regurgitation Diabetes HTN (hypertension) PEGGY (obstructive sleep apnea) Arthritis Surgical History H/O lateral meniscus repair of right knee H/O repair of rotator cuff H/O: hysterectomy Family History Maternal Grandmother Colon cancer Social History Alcohol intake: never Patient Tobacco Use Status: Never used Tobacco Physical Exam Vital Signs: Last Vital Signs Pulse 95 08/30/24 15:34 BP 120/86 08/30/24 15:34 Pulse Ox 97 08/30/24 15:34 Oxygen Delivery Method Room Air 08/30/24 15:34 BMI result Body Mass Index 26.8 Const General: cooperative and no acute distress Orientation/consciousness: patient oriented x3 Resp Effort & Inspection: normal respiratory effort and able to speak in complete sentences Neuro General: patient oriented x3 Cognition (Neuro): normal cognition Psych Appearance: grossly normal Mental Status: mental status grossly normal Speech and movement: Normal speech and movement present Affect: normal affect Attitude: cooperative Assessment & Plan Assessment & Plan (1) Chronic migraine without aura: Code(s): G43.709 - Chronic migraine without aura, not intractable, without status migrainosus Category: Medical Qualifiers: Status migrainosus presence: without status migrainosus Intractability: intractable Qualified Code(s): G43.719 - Chronic migraine without aura, intractable, without status migrainosus (2) Stabbing headache: Comment: Left-sided Code(s): G44.85 - Primary stabbing headache Category: Medical (3) Migraine with aura, intractable, without status migrainosus: Code(s): G43.119 - Migraine with aura, intractable, without status migrainosus Category: Medical Plan Left-sided stabbing headache: Continue Fioricet at onset of an attack, to see if this prevents repeated attacks- we will adjust order from capsule 2 tablet version. Could consider Indomethacin trial however pt has h/o GIp upset w/ NSAID use. Alternates: gabapentin, melatonin, nerve blocks, targeted left parietal Botox. ? For acute migraine tx: May continue Fioricet up to 10 tabs per month. Patient may trial OTC migraine cooling cap, many people with migraine find these beneficial. Hold Sumatriptan 100mg tab- pt no longer taking. Future considerations: Trial of Nurtec or Ubrelvy, however Fioricet would be to be held prior to trialing either of these. ? For chronic migraine prevention: Continue Riboflavin 400mg qam. Continue Magnesium 400mg qhs. Continue Metoprolol- taken primarily for HTN. Continue Botox, as patient continues to experience significant reduction in her migraine attacks. Reviewed general mechanism of action of Botox. Previous migraine prevention trials: Amitriptyline did not help, topiramate- she could not tolerate, propranolol did not help, verapramil did not help, Aimovig- caused constipation. Emgality caused constipation. Magnesium- unsure if helped. Contraindications: I would avoid Ajovy or Qulipta as pt has h/o IBS and had constipation to both Aimovog and Emgality. ? 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 Medications: New odtdeewyam-gqaxxmxvnotaw-oqoq 50-325-40 mg max 2 tabs per day or 4 tabs per week 1 tab PO Q4H 30 days PRN 20 tabs 2RF headache Discontinued hcoeqfnuwb-usaswtdxmengg-dxks 50-300-40 mg (Fioricet) Discontinued Reason: Doctor's Order 1 - 2 caps PO Q4-6H 30 days PRN 20 caps 1RF migraine headache Coding Level of Care Code Est Pt Level 4 (83242) Diagnoses Intractable chronic migraine without aura and without status migrainosus G43.719 Status migrainosus presence: without status migrainosus Intractability: intractable Stabbing headache G44.85 Migraine with aura, intractable, without status migrainosus G43.119
[2024-08-30 15:34] VITALS: BP 120/86; PULSE 95; O2SAT 97; BMI 26.8
== END 2024-08-30 15:58 | disposition home or self-care (01) ==
LOC: HO.HSMS 15:15
PROVIDERS: PCP Internal Medicine; Visit Provider Nurse Practitioner Family
DX: G43.719 Chronic migraine without aura, intractable, without status migrainosus (principal); G44.85 Primary stabbing headache; G43.119 Migraine with aura, intractable, without status migrainosus
CPT/HCPCS: 99214

== ENCOUNTER → 2024-08-30 15:15 | Outpatient (BNVA) | payer OTHER, SELFPAY | PROVIDERS: PCP Internal Medicine; Visit Provider Nurse Practitioner Family ==

== ENCOUNTER 2024-09-04 08:43 | Outpatient (AMB) | payer OTHER, SELFPAY ==
--- NOTE | 2024-09-04 08:46 | MHC.OFFVIS ---
Vital Signs 09/04/24 08:49 Height 4 ft 9 in Weight 123 lb BMI 26.6 BP 118/70 Blood Pressure Location Rt brachial Position Sitting Pulse 78 Pulse Source Pulse Oximeter Pulse Oximetry (%) 98 Oxygen Delivery Method Room Air Intake Visit Reasons: BOTOX Intake Note: Patient presents for botox injection BUY AND BILL supplied Allergies amoxicillin Adverse Reaction (Intermediate, Verified 09/04/24 08:50) Stomach Upset ibuprofen [From Motrin] Adverse Reaction (Intermediate, Verified 09/04/24 08:50) Stomach Upset Medication List - Last Reconciled 09/04/24 by Page Prather MD atorvastatin 10 mg PO DAILY tvcxrimeyk-gsvsqxajwmdnu-reih 50-325-40 mg 1 tab PO Q4H PRN 30 days clonidine HCl 0.1 mg PO BID dulaglutide (Trulicity) 3 mg subcut QWEEK estradiol 1 patch transdermal .weekly hydrochlorothiazide 25 mg PO DAILY metformin 1,000 mg PO BID metoprolol succinate ER 100 mg PO DAILY onabotulinumtoxinA (Botox) 200 units IM ONCE 12 weeks riboflavin (vitamin B2) 400 mg PO DAILY 30 days HPI Comments Details: ? 59y/o female comes for treatment of migraines with botox. How many migraine days prior to botox-25-30 days How long do the migraines last 1-2 days Intensity of migraine 8-04/26 ER visits related to migraine- 3 Effectiveness of botox from last two treatment(s) How many migraine days since receiving treatment: Change? in intensity of migraine?3-8 Change in frequency of migraine? 3-4/month Change in use of acute medication for migraine? decreased Change in quality of life?improved ER visits related to migraine?none Have at least three months elapsed since last treatment (Last botox date - frequency of injections) 02/07 she had 5 days of migraine last month ??? Most frequent reported adverse reactions following injection of botox for chronic migraine include neck pain (9%), headache(5%), eyelid ptosis(4%), migraine(4%), muscular weakness(4%), musculuskeletal stiffness(4%), bronchitis(3%), injection site pain (3%), musculoskeletal pain(3%), myalgia(3%), facial paresis(2%), HTN(2%) and muscle spasms(2%) were discussed in detail. ??? Botulinum toxin typeA 200units Lot no [id number] expiration September 2026 was diluted with 4 cc of normal saline . ??? Muscles injected- ??? Frontalis 4 sites ??? Procerus 1 site ???Corrugators 2 sites ??? Temporalis- 8 sites ??? Occipitalis- 6 sites ??? Cervical paraspinals- 4 sites ??? Trapezius- 6 sites- ??? 5 units each in 31 site ??? Total use- 155units ??? Discarded-45units [facility] Medical History Chronic migraine without aura, intractable, without status migrainosus Insomnia Fibromyalgia Chronic constipation Bilateral cataracts Anxiety Diverticulosis Mucinous cystadenocarcinoma of right ovary Rectal prolapse Mild mitral regurgitation Diabetes HTN (hypertension) PEGGY (obstructive sleep apnea) Arthritis Surgical History H/O lateral meniscus repair of right knee H/O repair of rotator cuff H/O: hysterectomy Family History Maternal Grandmother Colon cancer Social History Alcohol intake: never Patient Tobacco Use Status: Never used Tobacco Physical Exam Vital Signs: Last Vital Signs Pulse 78 09/04/24 08:49 BP 118/70 09/04/24 08:49 Pulse Ox 98 09/04/24 08:49 Oxygen Delivery Method Room Air 09/04/24 08:49 BMI result Body Mass Index 26.6 Const General: cooperative and no acute distress Orientation/consciousness: patient oriented x3 Resp Effort & Inspection: normal respiratory effort and able to speak in complete sentences Neuro General: patient oriented x3 Cognition (Neuro): normal cognition Psych Appearance: grossly normal Mental Status: mental status grossly normal Speech and movement: Normal speech and movement present Affect: normal affect Attitude: cooperative Office Procedures Botulinum toxin Injection 08630 - Migraine Procedure code (CPT) selection complete Office Meds onabotulinumtoxinA 200 unit solution for injection Performing Provider: Page Prather MD Performing Location: [facility] Administered by: Page Prather MD on 09/04/24 09:09 Dose Route Admin Location Dispensed Lot Number Expiration Date NDC Safety Instruction Police Officer 155 unit subcut 200 units [id number] [employer]/BOTOX Comments: see HPI Assessment & Plan Assessment & Plan (1) Migraine with aura, intractable, without status migrainosus: Code(s): G43.119 - Migraine with aura, intractable, without status migrainosus Category: Medical (2) Chronic migraine without aura: Code(s): G43.709 - Chronic migraine without aura, not intractable, without status migrainosus Category: Medical Qualifiers: Status migrainosus presence: without status migrainosus Intractability: intractable Qualified Code(s): G43.719 - Chronic migraine without aura, intractable, without status migrainosus (3) Chronic migraine without aura, intractable, without status migrainosus: Code(s): G43.719 - Chronic migraine without aura, intractable, without status migrainosus Category: Medical Plan Patient tolerated the procedure well SHe will call with any side effects Orders: Orders AMB Botulinum toxin Injection Today G43.719 - Chronic migraine without aura, intractable, without status migrainosus Medications: New onabotulinumtoxinA 200 units subcut ONCE 1 ea 0RF migraine G43.719 - Chronic migraine without aura, intractable, without status migrainosus Coding Level of Care Code Est Pt Level 1 (57017) Diagnoses Migraine with aura, intractable, without status migrainosus G43.119 Intractable chronic migraine without aura and without status migrainosus G43.719 Status migrainosus presence: without status migrainosus Intractability: intractable Chronic migraine without aura, intractable, without status migrainosus G43.719 CPT Codes Botox Injection - Botox 3: 13297 - Migraine ([id number])
[2024-09-04 08:49] VITALS: BP 118/70; PULSE 78; O2SAT 98; BMI 26.6
--- OUTSIDE RECORDS SUMMARY | 2024-09-04 09:11 | XMS_ITS | Clinical Summary ---
Author Organization [facility] [address] [facility] Address [address] [place] [address] Phone Care Team Providers Care Humanities Instructor Name Role Phone Olivier Hilario MD Primary [...] 4 Refills, Maintenance, 08/05/23 2:54:00 PM EST, [facility]/pharmacy #[id number], 145, cm, 06/23/23 13:10:00 EST, Height, [...] [address] [place] [address] Ekaterina Linares [place] 07/20/2024 1:00 PM EST Office Visit Gastroenterology - [address] [place] [address] Rosalie Hernandez PA Iron deficiency anemia, unspecified iron deficiency anemia type (Primary Dx); Vitamin B12 deficiency; Change in bowel movement; Gastroesophageal reflux disease without esophagitis 07/20/2024 Telephone Gastroenterology - [address] [place] [address] Dylon Yeh MD from Last [...] Info) Description 09/14/2024 8:00 AM EST Appointment [facility] Endoscopy [address] [place] [phone] Dylon Yeh MD [address] [address] 09/26/2024 3:00 PM EDT Office Visit Gastroenterology - [address] [phone] Rosalie Hernandez PA [address] [address] Health Maintenance Due Date Last Done Comments [...] LAB CHEMISTRY METHOD 07/23/2024 6:00 PM EST [facility] Folate >20.0(H) 2.8 - 17.0 ng/ml LAB CHEMISTRY METHOD 07/23/2024 6:00 PM EST [facility] Blood Venous blood specimen / Unknown Venipuncture / Unknown 07/23/2024 2:34 PM EST 07/23/2024 4:20 PM EST us Rosalie CASTREJON LAB BLOOD ORDERABLES Final R esult [facility] [address] [place] [address], [place] [phone] * Immunoglobulin A subclasses (07/23/2024 2:34 PM EST) IgA Subclass 1 174 46 - 378 mg/dL 07/31/2024 4:38 PM EST [facility] IgA Subclass 2 25 13 - 91 mg/dL 07/31/2024 4:38 PM EST [facility] IgA Total 200 47 - 310 mg/dL 07/31/2024 4:38 PM EST [facility] Comment: Test Performed at: [facility] [id number] [place], [place] ??[phone] ? I Darling WILSON, PhD, VANNA Blood Venous blood specimen / Unknown Venipuncture / Unknown 07/23/2024 2:34 PM EST 07/23/2024 4:20 PM EST Rosalie CASTREJON LAB BLOOD ORDERABLES Final R esult [facility] [address] [place] [address] * Endomysial antibody, IgA (07/23/2024 2:34 PM EST) Pathologist [facility] Endomysial IgA Negative Negative 07/25/2024 2:36 PM EST [facility] Blood Venous blood specimen / Unknown Venipuncture / Unknown 07/23/2024 2:34 PM EST 07/23/2024 4:20 PM [facility] BLOOD ORDERABLES Final R esult [facility] [address] [place] [address], * (ABNORMAL) CBC auto differential (07/23/2024 2:34 PM EST) WBC 7.5 4.8 - 10.8 [facility] LAB HEMETOLOGY METHOD 07/23/2024 4:29 PM EST [facility] RBC 4.00 3.80 - 4.80 [facility] LAB HEMETOLOGY METHOD 07/23/2024 4:29 PM EST [facility] Hemoglobin 11.3(L) 11.5 - 16.0 g/dL LAB HEMETOLOGY METHOD 07/23/2024 4:29 PM [facility] Hematocrit 37.4 35.0 - 47.0 % LAB HEMETOLOGY METHOD 07/23/2024 4:29 PM [facility] MCV 93.7 79.0 - 98.0 FL LAB HEMETOLOGY METHOD 07/23/2024 4:29 PM [facility] MCH 28.3 27.0 - 32.0 pcg LAB HEMETOLOGY METHOD 07/23/2024 4:29 PM [facility] MCHC 30.2(L) 32.0 - 37.0 g/dL LAB HEMETOLOGY METHOD 07/23/2024 4:29 PM [facility] RDW 14.4 11.0 - 15.0 % LAB HEMETOLOGY METHOD 07/23/2024 4:29 PM [facility] Platelets 215 130 - 400 K/mcL LAB HEMETOLOGY METHOD 07/23/2024 4:29 PM [facility] MPV 10.3 7.0 - 11.0 FL LAB HEMETOLOGY METHOD 07/23/2024 4:29 PM [facility] NRBC 0.0 <1.0 % LAB HEMETOLOGY METHOD 07/23/2024 4:29 PM [facility] NRBC Absolute 0.00 <0.10 K/mcL LAB HEMETOLOGY METHOD 07/23/2024 4:29 PM [facility] Neutrophils Relative 59.1 % LAB HEMETOLOGY METHOD 07/23/2024 4:29 PM [facility] Lymphocytes Relative 31.5 % LAB HEMETOLOGY METHOD 07/23/2024 4:29 PM [facility] Monocytes Relative 6.8 % LAB HEMETOLOGY METHOD 07/23/2024 4:29 PM [facility] Eosinophils Relative 1.7 % LAB HEMETOLOGY METHOD 07/23/2024 4:29 PM [facility] Basophils Relative 0.5 % LAB HEMETOLOGY METHOD 07/23/2024 4:29 PM [facility] Immature Granulocytes Relative 0.4 % LAB HEMETOLOGY METHOD 07/23/2024 4:29 PM [facility] Neutrophils Absolute 4.44 1.50 - 7.00 K/mcL LAB HEMETOLOGY METHOD 07/23/2024 4:29 PM [facility] Lymphocytes Absolute 2.37 1.00 - 5.00 K/mcL LAB HEMETOLOGY METHOD 07/23/2024 4:29 PM [facility] Monocytes Absolute 0.51 0.20 - 1.00 K/mcL LAB HEMETOLOGY METHOD 07/23/2024 4:29 PM [facility] Eosinophils Absolute 0.13 0.00 - 0.50 K/mcL LAB HEMETOLOGY METHOD 07/23/2024 4:29 PM [facility] Basophils Absolute 0.04 0.00 - 0.20 K/mcL LAB HEMETOLOGY METHOD 07/23/2024 4:29 PM [facility] Immature Granulocytes Absolute 0.03 0.00 - 0.03 K/mcL LAB HEMETOLOGY METHOD 07/23/2024 4:29 PM [facility] Blood Venous blood specimen / Unknown Venipuncture / Unknown 07/23/2024 2:34 PM EST 07/23/2024 4:21 PM EST us Rosalie CASTREJON LAB BLOOD ORDERABLES Final R esult [facility] [address] [place] [address], * (ABNORMAL) Iron and TIBC (07/23/2024 2:34 PM EST) Iron 49 40 - 150 mcg/dL LAB CHEMISTRY METHOD 07/23/2024 6:00 PM [facility] TIBC 370 250 - 450 mcg/dL LAB CHEMISTRY METHOD 07/23/2024 6:00 PM [facility] Iron Saturation 13(L) 15 - 50 % LAB CHEMISTRY METHOD 07/23/2024 6:00 PM [facility] Blood Venous blood specimen / Unknown Venipuncture / Unknown 07/23/2024 2:34 PM EST 07/23/2024 4:20 PM EST Rosalie CASTREJON LAB BLOOD ORDERABLES Final R esult [facility] [address] [place] [address], [place] [phone] * Tissue transglutaminase, IgA (07/23/2024 2:34 PM EST) Tissue Transglutaminase Ab, IgA Quant 1 <4 unit/mL LAB CHEMISTRY METHOD 07/25/2024 10:25 AM [facility] Tissue Transglutaminase Ab, IgA Negative Negative LAB CHEMISTRY METHOD 07/25/2024 10:25 AM [facility] Blood Venous blood specimen / Unknown Venipuncture / Unknown 07/23/2024 2:34 PM EST 07/23/2024 4:20 PM EST Rosalie CASTREJON LAB BLOOD ORDERABLES Final R esult [facility] [address] [place] [address], [place] [phone] * Ferritin (07/23/2024 2:34 PM EST) Ferritin 8 8 - 252 ng/mL LAB CHEMISTRY METHOD 07/23/2024 6:02 PM EST [facility] Blood Venous blood specimen / Unknown Venipuncture / Unknown 07/23/2024 2:34 PM EST 07/23/2024 4:20 PM EST us Rosalie CASTREJON LAB BLOOD ORDERABLES Final R esult [facility] [address] [place] [address], [place] [phone] * Gastrointestinal pathogens molecular study (07/23/2024 2:14 PM EST) Campylobacter Detection by PCR Not Detected Not Detected LAB MICROBIOLOGY METHOD 5 6:27 PM EST [facility] Plesiomonas shigelloides Detection by PCR Not Detected Not Detected LAB MICROBIOLOGY METHOD 5 6:27 PM [facility] Salmonella Detection by PCR Not Detected Not Detected LAB MICROBIOLOGY METHOD 5 6:27 PM [facility] Vibrio Detection by PCR Not Detected Not Detected LAB MICROBIOLOGY METHOD 5 6:27 PM [facility] Vibrio cholerae Detection by PCR Not Detected Not Detected LAB MICROBIOLOGY METHOD 5 6:27 PM [facility] Yersinia enterocolitica Detection by PCR Not Detected Not Detected LAB MICROBIOLOGY METHOD 5 6:27 PM [facility] Enteroaggregative E coli EAEC Detection by PCR Not Detected Not Detected LAB MICROBIOLOGY METHOD 5 6:27 PM [facility] Enteropathogenic E coli EPEC Detection Not Detected Not Detected LAB MICROBIOLOGY METHOD 5 6:27 PM [facility] Enterotoxigenic E coli ETEC LTST Detection Not Detected Not Detected LAB MICROBIOLOGY METHOD 5 6:27 PM [facility] Shiga-like toxin producing E coli STEC STX1 STX2 Det Not Detected Not Detected LAB MICROBIOLOGY METHOD 5 6:27 PM [facility] Shigella Enteroinvasive E coli EIEC Detection Not Detected Not Detected LAB MICROBIOLOGY METHOD 5 6:27 PM [facility] Cryptosporidium Detection by PCR Not Detected Not Detected LAB MICROBIOLOGY METHOD 5 6:27 PM [facility] Cyclospora cayetanensis Detection by PCR Not Detected Not Detected LAB MICROBIOLOGY METHOD 5 6:27 PM [facility] Entamoeba histolytica Detection by PCR Not Detected Not Detected LAB MICROBIOLOGY METHOD 5 6:27 PM [facility] Giardia lamblia Detection by PCR Not Detected Not Detected LAB MICROBIOLOGY METHOD 5 6:27 PM [facility] Adenovirus F 40 41 Detection by PCR Not Detected Not Detected LAB MICROBIOLOGY METHOD 5 6:27 PM [facility] Astrovirus Detection by PCR Not Detected Not Detected LAB MICROBIOLOGY METHOD 5 6:27 PM [facility] Norovirus GI GII Detection by PCR Not Detected Not Detected LAB MICROBIOLOGY METHOD 5 6:27 PM [facility] Sapovirus Detection by PCR Not Detected Not Detected LAB MICROBIOLOGY METHOD 5 6:27 PM [facility] Rotavirus A Detection by PCR Not Detected Not Detected LAB MICROBIOLOGY METHOD 5 6:27 PM [facility] Stool Rectum structure / Unknown Non-blood Collection / Unknown 07/23/2024 2:14 PM EST 07/23/2024 4:15 PM EST [facility] - 07/23/2024 6:27 PM EST [...] O RDERABLES Final Result Performing Organization Address [facility] Co de Phone Number [facility] [address] [place] [address], [place] [phone] * Clostridium difficile toxin (07/23/2024 2:14 PM EST) Clostridium difficile GDH Antigen Negative Negative 07/23/2024 6:20 PM EST [facility] C difficile Toxins A+B, EIA Negative Negative 07/23/2024 6:20 PM EST [facility] Comment:NEGATIVE FOR TOXIN P RODUCING CLOSTRIDIOIDES DIFFICILE, NO ADDITIONAL TESTING IS NECESSARY. 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
== END 2024-09-04 09:15 | disposition home or self-care (01) ==
PROVIDERS: PCP Internal Medicine; Visit Provider Psychiatry & Neurology Neurology
DX: G43.719 Chronic migraine without aura, intractable, without status migrainosus (principal)
CPT/HCPCS: 64615

== ENCOUNTER → 2024-09-04 08:43 | Outpatient (BNVA) | payer OTHER, SELFPAY | PROVIDERS: PCP Internal Medicine; Visit Provider Psychiatry & Neurology Neurology | DX: G43.119 Migraine with aura, intractable, without status migrainosus (principal) | CPT/HCPCS: 64615; 99211; J0585 ==

== ENCOUNTER 2024-12-21 15:09 | Outpatient (AMB) | payer OTHER, SELFPAY ==
[2024-12-21 15:12] VITALS: BP 130/80; PULSE 77; O2SAT 98; BMI 26.4
--- NOTE | 2024-12-21 15:12 | MHC.OFFVIS ---
Vital Signs 12/21/24 15:12 Height 4 ft 9 in Weight 122 lb BMI 26.4 BP 130/80 Blood Pressure Location Lt brachial Position Sitting Pulse 77 Pulse Source Pulse Oximeter Pulse Oximetry (%) 98 Oxygen Delivery Method Room Air Intake Visit Reasons: Botox Intake Note: Patient presents for botox injection practice supplied Channeler Required: No Accompanied by: Self / Same As Patient Allergies amoxicillin Adverse Reaction (Intermediate, Verified 09/04/24 08:50) Stomach Upset ibuprofen [From Motrin] Adverse Reaction (Intermediate, Verified 09/04/24 08:50) Stomach Upset Medication List - Last Reconciled 12/21/24 by Page Prather MD atorvastatin 10 mg PO DAILY kfwfzbvsfx-qestkqnecvpns-obge 50-325-40 mg 1 tab PO Q4H PRN 30 days clonidine HCl 0.1 mg PO BID dulaglutide (Trulicity) 3 mg subcut QWEEK estradiol 1 patch transdermal .weekly ferrous sulfate (FeroSul) 325 mg PO DAILY hydrochlorothiazide 25 mg PO DAILY metformin 1,000 mg PO BID metoprolol succinate ER 100 mg PO DAILY onabotulinumtoxinA (Botox) 200 units IM ONCE 12 weeks riboflavin (vitamin B2) 400 mg PO DAILY 30 days HPI Comments Details: ? 59y/o female comes for treatment of migraines with botox. How many migraine days prior to botox-25-30 days How long do the migraines last 1-2 days Intensity of migraine 8-10/10 ER visits related to migraine- 3 Effectiveness of botox from last two treatment(s) How many migraine days since receiving treatment: Change? in intensity of migraine?3-8 Change in frequency of migraine? 3-4/month Change in use of acute medication for migraine? decreased Change in quality of life?improved ER visits related to migraine?none Have at least three months elapsed since last treatment (Last botox date - frequency of injections) 3 mths she had 5 days of migraine last month ??? Most frequent reported adverse reactions following injection of botox for chronic migraine include neck pain (9%), headache(5%), eyelid ptosis(4%), migraine(4%), muscular weakness(4%), musculuskeletal stiffness(4%), bronchitis(3%), injection site pain (3%), musculoskeletal pain(3%), myalgia(3%), facial paresis(2%), HTN(2%) and muscle spasms(2%) were discussed in detail. ??? Botulinum toxin typeA 200units Lot no [id number] expiration October 2026 was diluted with 4 cc of normal saline . ??? Muscles injected- ??? Frontalis 4 sites ??? Procerus 1 site ???Corrugators 2 sites ??? Temporalis- 8 sites ??? Occipitalis- 6 sites ??? Cervical paraspinals- 4 sites ??? Trapezius- 6 sites- ??? 5 units each in 31 site ??? Total use- 155units ??? Discarded-45units [facility] Medical History Chronic migraine without aura, intractable, without status migrainosus Insomnia Fibromyalgia Chronic constipation Bilateral cataracts Anxiety Diverticulosis Mucinous cystadenocarcinoma of right ovary Rectal prolapse Mild mitral regurgitation Diabetes HTN (hypertension) PEGGY (obstructive sleep apnea) Arthritis Surgical History H/O lateral meniscus repair of right knee H/O repair of rotator cuff H/O: hysterectomy Family History Maternal Grandmother Colon cancer Social History Alcohol intake: never Patient Tobacco Use Status: Never used Tobacco Physical Exam Vital Signs: Last Vital Signs Pulse 77 12/21/24 15:12 BP 130/80 12/21/24 15:12 Pulse Ox 98 12/21/24 15:12 Oxygen Delivery Method Room Air 12/21/24 15:12 BMI result Body Mass Index 26.4 Const General: cooperative and no acute distress Orientation/consciousness: patient oriented x3 Resp Effort & Inspection: normal respiratory effort and able to speak in complete sentences Neuro General: patient oriented x3 Cognition (Neuro): normal cognition Psych Appearance: grossly normal Mental Status: mental status grossly normal Speech and movement: Normal speech and movement present Affect: normal affect Attitude: cooperative Office Procedures Botulinum toxin Injection 32050 - Migraine Procedure code (CPT) selection complete Office Meds onabotulinumtoxinA 200 unit solution for injection Performing Provider: Page Prather MD Performing Location: [facility] Administered by: Page Prather MD on 12/21/24 15:42 Dose Route Admin Location Dispensed Lot Number Expiration Date [facility] [place]NOTE 2[place] [employer] 155 unit subcut 200 units [id number] ALLERGAN/BOTOX Comments: see hpi Assessment & Plan Assessment & Plan (1) Migraine with aura, intractable, without status migrainosus: Code(s): G43.119 - Migraine with aura, intractable, without status migrainosus Category: Medical (2) Chronic migraine without aura: Code(s): G43.709 - Chronic migraine without aura, not intractable, without status migrainosus Category: Medical Qualifiers: Status migrainosus presence: without status migrainosus Intractability: intractable Qualified Code(s): G43.719 - Chronic migraine without aura, intractable, without status migrainosus (3) Chronic migraine without aura, intractable, without status migrainosus: Code(s): G43.719 - Chronic migraine without aura, intractable, without status migrainosus Category: Medical Plan Patient tolerated the procedure well SHe will call with any side effects Orders: Orders AMB Botulinum toxin Injection Today G43.719 - Chronic migraine without aura, intractable, without status migrainosus Medications: New onabotulinumtoxinA 200 units subcut ONCE 1 ea 0RF Migraine G43.719 - Chronic migraine without aura, intractable, without status migrainosus Coding Level of Care Code Est Pt Level 1 (69432) Diagnoses Migraine with aura, intractable, without status migrainosus G43.119 Intractable chronic migraine without aura and without status migrainosus G43.719 Status migrainosus presence: without status migrainosus Intractability: intractable Chronic migraine without aura, intractable, without status migrainosus G43.719 CPT Codes Botox Injection - Botox 3: 82517 - Migraine ([id number])
--- OUTSIDE RECORDS SUMMARY | 2024-12-21 15:12 | XMS_ITS | Clinical Summary ---
Author Organization [facility] [address] [facility] ilding Address [address] [place] [address] Phone Care Team Providers Care Extraction Supervisor Name Role Phone Olivier Hilario MD Primary Care Provider + [phone] Allergies Active Allergy Reactions Criticality Noted Date Comments Amoxicillin GI intolerance 07/20/2024 Ibuprofen GI intolerance 07/20/2024 Topiramate 09/06/2024 Other Reaction(s): mental confusion Medications riboflavin (VITAMIN B2) 400 mg tablet [...] atorvastatin (LIPITOR) 10 mg tablet See Instructions, MAURICEE DELMI TABLETA KENNEY KIDDS, # 90 tablet, 4 Refills, Maintenance, 08/05/23 2:54:00 PM EST, [facility]/pharmacy #[id number], 145, cm, 06/23/23 13:10:00 EST, Height, 57.09, kg, 04/25/23 15:13:00 EDT, Dry Weight 08/05/19 24 Active famotidine (PEPCID) 40 mg tabletIndicatio ns:Gastroesopha geal reflux disease without esophagitis Take 1 tablet (40 mg total) by mouth 2 (two) times a day. 180 each 3 07/20/19 25 026 Active triazolam (HALCION) 0.25 mg tablet TAKE 1 TABLET 30 MINUTES PRIOR TO PROCEDURE DIRECTED BY YOUR DENTIST 07/07/20 24 Active magnesium oxide (MAG-OX) 400 mg (241.3 elemental magnesium) tablet TAKE 1 TABLET ORALLY BEDTIME FOR 30 DAYS MAY HOLD FOR LOOSE STOOLS 02/07/20 24 Active hydroCHLOROthia zide (HYDRODIURIL) 25 mg tablet See Instructions, CHADWICK AWAD TABLETA KENNEY KIDDS, # 90 tablet, Refills 3, Tot. Refills 3, Maintenance, 07/04/24 7:20:00 AM EST, Instructions Replace Required Details, Route to Pharmacy Electronically, [facility]/pharmacy #[id number], 145, cm, 07/03/24 15:48:00 EST, Height, 57.181, kg, 07/03/24 15:48:00 EST, Dry Weight 07/04/20 24 Active butalbital-acet aminophen-caffe ine 50-300-40 mg capsule TAKE 1 - 2 CAPSULES BY MOUTH EVERY 4 TO 6 HOURS NEEDED FOR MIGRAINE HEADACHE FOR 30 DAYS 05/18/20 24 Active dicyclomine (BENTYL) 10 mg capsuleIndicati ons:Irritable bowel syndrome with diarrhea Take 1 capsule (10 mg total) by mouth 3 (three) times a day. 270 each 3 09/27/19 25 026 Active Active Problems Problem Noted Date Diagnosed Date Iron deficiency anemia 12/13/2024 Diverticulitis of ascending colon 07/20/2024 Diverticulitis large [...] now due to vitamin B12 deficiency Diabetes ([facility] V24, [facility] V28) 07/20/2024 Hyperlipidemia 07/20/2024 Migraines 07/20/2024 Liver hemangioma 07/20/2024 Ovarian cancer ([facility] V24, [facility] V28) 2024 Overview (07/20/2024): 2002 S/P KALIN-BSO 07/20/2024 Overview (07/20/2024): 2002 S/P colon resection 07/20/2024 Overview (07/20/2024): Along with MARIA ISABELHBSO 2002 for mass on colon(ovarian cancer) Hx of right knee surgery 07/20/2024 Encounters Date Type Department Care Team Description 12/03/2024 3:30 PM EDT Office Visit [facility] Hematology Oncology [address] [place] [address] Ila Talley PA Iron deficiency anemia, unspecified iron deficiency anemia type (Primary Dx); History of ovarian cancer 10/18/2024 Telephone Gastroenterology - [address] [facility] [address] [facility] [address] [place] [address] Rosalie Hernandez PA 10/16/2024 Billing Patient Not Present Gastroenterology - [address] [facility] [address] [place] [address] Julio César Masters MD Iron deficiency anemia due to chronic blood loss (Primary Dx) 10/01/2024 Telephone Gastroenterology - [address] [facility] [address] [place] [address] Monserrat Downs [place] Results 09/28/2024 11:53 AM EDT - 09/28/2024 11:59 PM EDT Hospital Encounter [facility] Xray [address] [place] [phone] Iron deficiency anemia, unspecified iron deficiency anemia type Discharge Disposition: Home or Self Care 09/27/2024 Telephone Gastroenterology - [address] [place] [phone] Monserrat Downs [place] Results 09/26/2024 3:00 PM EDT Office Visit Gastroenterology - [address] [place] [address] Rosalie Hernandez PA Iron deficiency anemia, unspecified iron deficiency anemia type (Primary Dx); Irritable bowel syndrome with diarrhea from Last 3 Months Surgical History Surgery Date Site/Laterality Comments COLONOSCOPY 10/16/2020 - 11/14/2020 sigmoid tics (10 yr) ESOPHAGOGASTRODUODENOSCOPY 10/16/2020 - 11/14/2020 nl small bowel and gastri bx COLONOSCOPY 10/16/2012 - 11/14/2012 diverticulosis throughout colon, int rhoids, friability of left colon, inflammation on bx without findings of chronic colitis(10 yr) HYSTERECTOMY with BSO/ ovarian cancer KNEE SURGERY Right ROTATOR CUFF REPAIR Right COLONOSCOPY 08/18/2024 - 09/14/2024 tics, healthy appearing mucosa at anastamosis, int rhoids (10 yr) ESOPHAGOGASTRODUODENOSCOPY 08/18/2024 - 09/14/2024 gastritis with normal bx, no H.pylori CHOLECYSTECTOMY COLON SURGERY 07/18/2002 - 07/17/2003 mass resected/ovarian cancer Medical History Medical History Date Comments Hypertension Hyperlipidemia Diabetes mellitus ([place] V24, [place] V28) Sleep apnea GERD (gastroesophageal reflux disease) Ovarian ca ([place] V24, [place] V28) Social History Tobacco Use Types Packs/Day Years Used Date Smoking Tobacco: Never Smokeless Tobacco: Never Tobacco Cessation:Counseling Given: Not Answered Alcohol Use Standard Drinks/Week Comments Not Currently 0 (1 standard drink = 0.6 oz pur e alcohol) Interpersonal Safety Answer Date Record ed Physical Abuse 09/14/2024 Verbal Abuse 09/14/2024 Comments Unknown Sex and Gender Information Value Date Recorded Sex Assigned at Female 09/13/2024 3:58 PM EST Legal Sex Female 7:02 AM EST Gender Identity Female 09/13/2024 3:58 PM EST Sexual Orientation Straight 09/14/2024 6: 51 AM EST Obstetrics History Last Filed Vital Signs Vital Sign Reading Time Taken Comments Blood Pressure 156/85 12/03/2024 3:27 PM EDT Pulse 81 12/03/2024 3:27 PM EDT Temperature 36.6 ??C (97.9 ??F) 12/03/2024 3:27 PM ED T Respiratory Rate 16 09/14/2024 8:43 AM EST Oxygen Saturation 100% 12/03/2024 3:27 PM EDT Inhaled Oxygen Concentration - - Weight 55.3 kg (122 lb) 12/03/2024 3:27 PM EDT Height 144.8 cm (4' 9 ) 12/03/2024 3:27 PM EDT Body Mass Index 26.4 12/03/2024 3:27 PM EDT Plan of Treatment Upcoming Encounters Date Type Department Care Team (Late st Contact Info) Description 12/28/2024 2:00 PM EDT Appointment [facility] Infusion Center [address] [phone] 03/05/2025 3:00 PM EDT Office Visit [facility] Hematology Oncology [address] [place] [phone] Ila Talley PA [address] [place] [address] Health Maintenance Due Date Last Done Comments Breast Cancer Screening 1965 Diabetes: Annual Foot Exam 1974 Diabetes: Annual Retina Eye Exam 1974 Cervical Cancer Screening: Pap Smear 1985 Cholesterol Screening (Lipid Panel) 06/20/2022 Depression Screening 06/20/2022 HIV Screening 06/20/2022 Hepatitis C Screening 06/20/2022 Social Influencers of Health Screening 06/20/2022 RSV Immunization Adult Patients (1 - Risk 60-74 years 1-dose series) 2024 Diabetes: Annual Urine Albumin-Creatinine Ratio (uACR) 07/20/2024 Diabetes: Blood Sugar Control Test (HGBA1C) 07/20/2024 Hepatitis A Vaccines (2 of 2 - Risk 2-dose series) 09/26/2024 03/29/2024 COVID-19 Vaccine (8 - Pfizer risk 2023- season) 2024 04/20/2024, 05/17/2023, 04/13/2022, Additional history exists Diabetes: Annual GFR (Glomerular Filtration Rate) 12/03/2025 12/03/2024 Hypertension/CHF/CAD Annual BMP Blood Test 12/03/2025 12/03/2024 DTaP,Tdap,and Td Vaccines (5 - Td or Tdap) 05/23/2028 05/23/2018, 08/31/2016, 09/03/2007, Additional history exists Colorectal Cancer Screening: Colonoscopy 09/14/2034 09/14/2024 Zoster Vaccines Completed 01/16/2019, 09/27/2018 Pneumococcal Vaccine: 50+ Years Completed 09/22/2023, 10/24/2014 Pneumococcal Vaccine: Pediatrics (0 to 5 Years) and At-Risk Patients (6 to 64 Years) Completed 09/22/2023, 10/24/2014 Influenza Vaccine Completed 04/20/2024, , 05/17/2023, Additional [...] age to complete this topic Meningococcal B Vaccine Aged Out No l onger eligible based on patient's age to complete this topic RSV Immunization Patients Under 20 months Aged Out No longer eligible based on patient's age to complete this topic Varicella Vaccines Aged Out No longer eligible based on patient's age to complete this topic Procedures Procedure Name Priority Date/Time Associated Diagnosis Comments CBC WITH AUTO DIFFERENTIAL Routine 12/03/2024 4:13 PM EDT Iron deficiency anemia, unspecified iron deficiency anemia type COMPREHENSIVE METABOLIC PANEL Routine 12/03/2024 4:13 PM EDT Iron deficiency anemia, unspecified iron deficiency anemia type VITAMIN B12 AND FOLATE Routine 4:13 PM EDT Iron deficiency anemia, unspecified iron deficiency anemia type RETICULOCYTE COUNT Routine 12/03/2024 4: 13 PM EDT Iron deficiency anemia, unspecified iron deficiency anemia type LACTATE DEHYDROGENASE Routine 12/03/2024 4:13 PM EDT Iron deficiency anemia, unspecified iron deficiency anemia type IRON AND TIBC Routine 12/03/2024 4:13 PM EDT Iron deficiency anemia, unspecified iron deficiency anemia type HAPTOGLOBIN Routine 12/03/2024 4:13 PM EDT Iron deficiency anemia, unspecified iron deficiency anemia type ERYTHROPOIETIN Routine 12/03/2024 4:13 PM EDT Iron deficiency anemia, unspecified iron deficiency anemia type FERRITIN Routine 12/03/2024 4:13 PM EDT Iron deficiency anemia, unspecified iron deficiency anemia type CBC AND DIFFERENTIAL Routine 12/03/2024 4:13 PM EDT Iron deficiency anemia, unspecified iron deficiency anemia type ENDOSCOPY, SMALL BOWEL Routine 9:09 AM EDT XR ABDOMEN 1 VIEW Routine 09/28/2024 12: 12 PM EDT Iron deficiency anemia, unspecified iron deficiency anemia type CBC WITH AUTO DIFFERENTIAL Routine 09/27/2024 7:43 AM EDT Iron deficiency anemia, unspecified iron deficiency anemia type IRON AND TIBC Routine 09/27/2024 7:43 AM EDT Iron deficiency anemia, unspecified iron deficiency anemia type FERRITIN Routine 09/27/2024 7:43 AM EDT Iron deficiency anemia, unspecified iron deficiency anemia type CBC AND DIFFERENTIAL Routine 09/27/2024 7:43 AM EDT Iron deficiency anemia, unspecified iron deficiency anemia type COLONOSCOPY Routine 09/14/2024 8:22 AM EST Iron (Fe) deficiency anemia Vitamin B12 deficiency Diarrhea Change in bowel movement from Last 3 Months or Most Recently Relevant to Health Maintenance Results * (ABNORMAL) Vitamin B12 and folate (12/03/2024 4:13 PM EDT) Vitamin B-12 707 250 - 900 pcg/mL LAB CHEMISTRY METHOD 12/03/2024 6:31 PM EDT [facility] Folate >20.0(H) 2.8 - 17.0 ng/ml LAB CHEMISTRY METHOD 12/03/2024 6:31 PM EDT [facility] Blood Venous blood specimen / Unknown Venipuncture / Unknown 12/03/2024 4:13 PM EDT 12/03/2024 4:38 PM EDT us Ila CASTREJON LAB BLOOD ORDERABLES Final Re sult [facility] [address] [place] [address], [place] [phone] * (ABNORMAL) CBC auto differential (12/03/2024 4:13 PM EDT) Only the most recent of2 resultswithin the time period is included. [facility] Signature WBC 7.8 4.8 - 10.8 K/mcL LAB HEMETOLOGY METHOD 12/03/2024 4:49 PM [facility] RBC 4.20 3.80 - 4.80 M/mcL LAB HEMETOLOGY METHOD 12/03/2024 4:49 PM [facility] Hemoglobin 12.3 11.5 - 16.0 g/dL LAB HEMETOLOGY METHOD 12/03/2024 4:49 PM [facility] Hematocrit 39.3 35.0 - 47.0 % LAB HEMETOLOGY METHOD 12/03/2024 4:49 PM [facility] MCV 94.0 79.0 - 98.0 FL LAB HEMETOLOGY METHOD 12/03/2024 4:49 PM [facility] MCH 29.4 27.0 - 32.0 pcg LAB HEMETOLOGY METHOD 12/03/2024 4:49 PM [facility] MCHC 31.3(L) 32.0 - 37.0 g/dL LAB HEMETOLOGY METHOD 12/03/2024 4:49 PM [facility] RDW 14.2 11.0 - 15.0 % LAB HEMETOLOGY METHOD 12/03/2024 4:49 PM [facility] Platelets 200 130 - 400 K/mcL LAB HEMETOLOGY METHOD 12/03/2024 4:49 PM [facility] MPV 9.9 7.0 - 11.0 FL LAB HEMETOLOGY METHOD 12/03/2024 4:49 PM [facility] NRBC 0.0 <1.0 % LAB HEMETOLOGY METHOD 12/03/2024 4:49 PM [facility] NRBC Absolute 0.00 <0.10 K/mcL LAB HEMETOLOGY METHOD 12/03/2024 4:49 PM EDT [facility] Neutrophils Relative 58.2 % LAB [facility]EMETOLOGY [facility]/03[facility]24 [facility] Lymphocytes Relative 32.7 % LAB HEMETOLOGY METHOD 12/03/2024 4:49 PM [facility] Monocytes Relative 5.8 % LAB HEMETOLOGY METHOD 12/03/2024 4:49 PM EDT [facility] Eosinophils Relative 2.2 % LAB HEMETOLOGY METHOD 12/03/2024 4:49 PM [facility] Basophils Relative 0.6 % LAB HEMETOLOGY METHOD 12/03/2024 4:49 PM [facility] Immature Granulocytes Relative 0.5 % LAB HEMETOLOGY METHOD 12/03/2024 4:49 PM [facility] Neutrophils Absolute 4.55 1.50 - 7.00 K/mcL LAB HEMETOLOGY METHOD 12/03/2024 4:49 PM [facility] Lymphocytes Absolute 2.56 1.00 - 5.00 K/mcL LAB HEMETOLOGY METHOD 12/03/2024 4:49 PM [facility] Monocytes Absolute 0.45 0.20 - 1.00 K/mcL LAB HEMETOLOGY METHOD 12/03/2024 4:49 PM [facility] Eosinophils Absolute 0.17 0.00 - 0.50 K/mcL LAB HEMETOLOGY METHOD 12/03/2024 4:49 PM [facility] Basophils Absolute 0.05 0.00 - 0.20 K/mcL LAB HEMETOLOGY METHOD 12/03/2024 4:49 PM [facility] Immature Granulocytes Absolute 0.04(H) 0.00 - 0.03 K/mcL LAB HEMETOLOGY METHOD 12/03/2024 4:49 PM [facility] Blood Venous blood specimen / Unknown Venipuncture / Unknown 12/03/2024 4:13 PM EDT 12/03/2024 4:39 PM EDT Ila CASTREJON LAB BLOOD ORDERABLES Final Re sult Performing Organization Address [facility]/ZIP Co de Phone Number [facility] [address] [place] [address], [place] [phone] * (ABNORMAL) Erythropoietin (12/03/2024 4:13 PM EDT) Erythropoietin 23.1(H) 2.6 - 18.5 mIU/mL 12/06/2024 3:52 PM EDT [facility] Comment: Test performed at [facility], [address], [place], [place] ??[address] ? [phone] Andie Ashley MD, PhD - Alignment Technician Blood Venous blood specimen / Unknown Venipuncture / Unknown 12/03/2024 4:13 PM EDT 12/03/2024 4:38 PM EDT Ila CASTREJON LAB BLOOD ORDERABLES Final Re sult Performing Organization Address [facility]/ZIP Co de Phone Number [facility] [address] [place] [address] * Iron and TIBC (12/03/2024 4:13 PM EDT) Only the most recent of2 resultswithin the time period is included. Iron 81 40 - 150 mcg/dL LAB CHEMISTRY METHOD 12/03/2024 6:09 PM EDT [facility] TIBC 418 250 - 450 mcg/dL LAB CHEMISTRY METHOD 12/03/2024 6:09 PM EDT [facility] Iron Saturation 19 15 - 50 % LAB CHEMISTRY METHOD 12/03/2024 6:09 PM EDT [facility] Blood Venous blood specimen / Unknown Venipuncture / Unknown 12/03/2024 4:13 PM EDT 12/03/2024 4:38 PM EDT us Ila CASTREJON LAB BLOOD ORDERABLES Final Re sult Performing Organization Address [facility]/ZIP Co de Phone Number [facility] [address] [place] [address], [place] [phone] * (ABNORMAL) Reticulocyte count (12/03/2024 4:13 PM EDT) Retic Ct Abs 0.090 0.030 - 0.090 M/mcL LAB HEMETOLOGY METHOD 12/03/2024 4:49 PM EDT [facility] Retic Ct Pct 2.2(H) 0.7 - 1.7 % LAB HEMETOLOGY METHOD 12/03/2024 4:49 PM EDT [facility] Immature Retic Fract 22.5(H) 2.3 - 15.9 % LAB HEMETOLOGY METHOD 12/03/2024 4:49 PM EDT [facility] Reticulocyte Hemoglobin 32.1 >29.0 pcg LAB HEMETOLOGY METHOD 12/03/2024 4:49 PM EDT [facility] Blood Venous blood specimen / Unknown Venipuncture / Unknown 12/03/2024 4:13 PM EDT 12/03/2024 4:39 PM EDT us Ila CASTREJON LAB BLOOD ORDERABLES Final Re sult [facility] [address] [place] [address], [place] [phone] * Lactate dehydrogenase (12/03/2024 4:13 PM EDT) LDH 151 120 - 246 unit/L LAB CHEMISTRY METHOD 12/03/2024 6:09 PM EDT [facility] Blood Venous blood specimen / Unknown Venipuncture / Unknown 12/03/2024 4:13 PM EDT 12/03/2024 4:38 PM EDT Ila CASTREJON LAB BLOOD ORDERABLES Final Re sult Performing Organization Address City/[facility]/ZIP Co de Phone Number [facility] [address] [place] [address], [place] [phone] * (ABNORMAL) Haptoglobin (12/03/2024 4:13 PM EDT) Haptoglobin 242(H) 16 - 200 mg/dL LAB CHEMISTRY METHOD 12/03/2024 6:09 PM EDT [facility] Blood Venous blood specimen / Unknown Venipuncture / Unknown 12/03/2024 4:13 PM EDT 12/03/2024 4:38 PM EDT Ila CASTREJON LAB BLOOD ORDERABLES Final Re sult Performing Organization Address [facility]/ZIP Co de Phone Number [facility] [address] [place] [address], [place] [phone] * (ABNORMAL) Ferritin (12/03/2024 4:13 PM EDT) Only the most recent of2 resultswithin the time period is included. Ferritin 7(L) 8 - 252 ng/mL LAB CHEMISTRY METHOD 12/03/2024 6:20 PM EDT [facility] Blood Venous blood specimen / Unknown Venipuncture / Unknown 12/03/2024 4:13 PM EDT 12/03/2024 4:38 PM EDT Ila CASTREJON LAB BLOOD ORDERABLES Final Re sult Performing Organization Address City/[facility]/ZIP Co de Phone Number [facility] [address] [place] [address], [place] [phone] * (ABNORMAL) Comprehensive metabolic panel (12/03/2024 4:13 PM EDT) Sodium 139 133 - 145 mmol/L LAB CHEMISTRY METHOD 12/03/2024 6:09 PM [facility] Potassium 4.4 3.5 - 5.5 mmol/L LAB CHEMISTRY METHOD 12/03/2024 6:09 PM [facility] Chloride 102 96 - 110 mmol/L LAB CHEMISTRY METHOD 12/03/2024 6:09 PM [facility] CO2 28 21 - 32 mmol/L LAB CHEMISTRY METHOD 12/03/2024 6:09 PM [facility] Anion Gap 9 3 - 11 LAB CHEMISTRY METHOD 12/03/2024 6:09 PM [facility] Glucose 118(H) 70 - 100 mg/dL LAB CHEMISTRY METHOD 12/03/2024 6:09 PM [facility] BUN 27(H) 5 - 25 mg/dL LAB CHEMISTRY METHOD 12/03/2024 6:09 PM [facility] Creatinine 1.46(H) 0.50 - 1.10 mg/dL LAB CHEMISTRY METHOD 12/03/2024 6:09 PM [facility] eGFR 41(L) >=60 mL/min/1. 73m2 LAB CHEMISTRY METHOD 12/03/2024 6:09 PM [facility] Comment:Calculation based on the Chronic Kidney Disease Epidemiology Collaboration (CKD-EPI) equation refit without adjustment for race. BUN/Creatinine Ratio 18.5 LAB CHEMISTRY METHOD 12/03/2024 6:09 PM [facility] Calcium 8.6 8.5 - 10.5 mg/dL LAB CHEMISTRY METHOD 12/03/2024 6:09 PM [facility] AST (SGOT) 15 10 - 42 unit/L LAB CHEMISTRY METHOD 12/03/2024 6:09 PM EDT [facility] ALT (SGPT) 26 10 - 60 unit/L LAB CHEMISTRY METHOD 12/03/2024 6:09 PM EDT [facility] Alkaline Phosphatase 92 42 - 121 unit/L LAB CHEMISTRY METHOD 12/03/2024 6:09 PM EDT [facility] Total Protein 7.3 6.0 - 8.0 g/dL LAB CHEMISTRY METHOD 12/03/2024 6:09 PM EDT [facility] Albumin 3.9 3.2 - 5.0 g/dL LAB CHEMISTRY METHOD 12/03/2024 6:09 PM EDT [facility] Total Bilirubin 0.2 0.0 - 1.4 mg/dL LAB CHEMISTRY METHOD 12/03/2024 6:09 PM EDT [facility] Blood Venous blood specimen / Unknown Venipuncture / Unknown 12/03/2024 4:13 PM EDT 12/03/2024 4:38 PM EDT Ila CASTREJON LAB BLOOD ORDERABLES Final Re sult [facility] [address] [place] [address], [place] [phone] * Endoscopy, small bowel with ileum (10/09/2024 9:09 AM EDT) Anatomical Region Laterality Modality Endoscopy Historical Provider GI~PROCEDURE ORDERABLES F inal Result * XR Abdomen 1 View (09/28/2024 12:12 PM EDT) Anatomical Region Laterality Modality Body Radiographic Etta ging 09/28/2024 12:1 9 PM EDT Impressions 09/28/2024 12:25 PM EDT There is no opaque patency capsule demonstrated. This is consistent with passage of the capsule. Previous surgery in the rectosigmoid region -------- FINAL REPORT -------- Dictated By: Manoj Zambrano Dictated Date: 09/28/2024 12:19 ET Assigned Physician: Manoj Zambrano Reviewed and Electronically Signed By: Manoj Zambrano Signed Date: 09/28/2024 12:25 ET Workstation ID: [id number] Transcribed By: Self Edit Transcribed Date: 09/28/2024 12:19 ET Narrative 09/28/2024 12:25 PM EDT EXAMINATION: ABDOMEN CLINICAL INFORMATION: Patency capsule was administered prior to undertaking capsule endoscopy COMPARISON: 11/18/2010 frontal view TECHNIQUE: Frontal view of the abdomen FINDINGS: Metallic suture in the region of the rectosigmoid junction. 2 linear metallic densities in the deep left pelvis are similar to 2011. No opaque patency capsule is demonstrated. There are surgical clips in the upper abdomen. Gas and fecal residue throughout the colon to level of the rectum. No evidence of small bowel obstruction. No evidence of an abnormal mass or collection. Procedure Note Manoj Zambrano MD - 09/28/2024 EXAMINATION: ABDOMEN CLINICAL INFORMATION: Patency capsule was administered prior to undertaking capsule endoscopy COMPARISON: 11/18/2010 frontal view TECHNIQUE: Frontal view of the abdomen FINDINGS: Metallic suture in the region of the rectosigmoid junction. 2 linearmetallic densities in the deep left pelvis are similar to 2011. No opaque patency capsule is demonstrated. There are surgical clips in theupper abdomen. Gas and fecal residue throughout the colon to level of the rectum. Noevidence of small bowel obstruction. No evidence of an abnormal mass orcollection. IMPRESSION: There is no opaque patency capsule demonstrated. This is consistent withpassage of the capsule. Previous surgery in the rectosigmoid region -------- FINAL REPORT -------- Dictated By: Manoj Zambrano Dictated Date: 09/28/2024 12:19 ET Assigned Physician: Manoj Zambrano Reviewed and Electronically Signed By: Manoj Zambrano Signed Date: 09/28/2024 12:25 ET Workstation ID: [id number] Transcribed By: Self Edit Transcribed Date: 09/28/2024 12:19 ET Rosalie CASTREJON IMG XR PROCEDURES Final Resu lt * COLONOSCOPY Anesthesia - MAC; [facility] ENDOSCOPY (09/14/2024 8:22 AM EST) Anatomical Region Laterality Modality Other 09/14/2024 7:57 AM EST Impressions 09/14/2024 8:22 AM EST - Diverticulosis in the entire examined colon. ? - Patent end-to-side colo-colonic anastomosis, ? characterized by healthy appearing mucosa. ? - Non-bleeding internal hemorrhoids. ? - The examination was otherwise normal on direct and ? retroflexion views. ? - No specimens collected. Recommendation: ?- Perform an upper GI endoscopy today. ? - Repeat colonoscopy in 10 years for surveillance. Narrative 09/14/2024 8:22 AM EST [facility] GI Patient Name: Teodora Dunne Procedure Date: 09/14/2024 7:57 AM Date of : 1965 Age: 59 Room: ROOM 14 Gender: Female Note Status: Finalized Attending MD: Dylon Yeh MD, Procedure Date No Time: 09/14/2024 Procedure: ? Colonoscopy Indications: ? Iron deficiency anemia Providers: ? Dylon Yeh MD Referring MD: ?Dylon Yeh MD Medicines: ? Monitored Anesthesia Care Complications: ? No immediate complications. Estimated Blood Loss: ? Estimated blood loss: none. Procedure: ? Pre-Anesthesia Assessment: ? - ASA Grade Assessment: II - A patient with mild ? systemic disease. ? - After reviewing the risks and benefits, the patient ? was deemed in satisfactory condition to undergo the ? procedure. ? After I obtained informed consent, the scope was ? passed under direct vision. Throughout the procedure, ? the patient's blood pressure, pulse, and oxygen ? saturations were monitored continuously.The Olympus ? Pediatric Colonoscope was introduced through the anus ? and advanced to the cecum, identified by appendiceal ? orifice and ileocecal valve. The colonoscopy was ? performed without difficulty. The patient tolerated ? the procedure well. The quality of the bowel ? preparation was good. Findings: ?Scattered small-mouthed diverticula were found in the ? entire colon. ? There was evidence of a prior end-to-side colo-colonic ? anastomosis in the recto-sigmoid colon. This was ? patent and was characterized by healthy appearing ? mucosa. ? Non-bleeding internal hemorrhoids were found during ? retroflexion. The hemorrhoids were small. ? The exam was otherwise without abnormality on direct ? and retroflexion views. ? NO IMAGES SECONDARY TO PROVATION Procedure Code(s): ? --- Professional --- ? 12073, Colonoscopy, flexible; diagnostic, including ? collection of specimen(s) by brushing or washing, when ? performed (separate procedure) Diagnosis Code(s): ? --- Professional --- ? D50.9, Iron deficiency anemia, unspecified CPT copyright 2020 [employer]. All rights reserved. The codes documented in this report are preliminary and upon retail loan originator assistant review may be revised to meet current compliance requirements. Dylon Yeh MD 09/14/2024 8:22:44 AM This report has been signed electronically.Dylon Yeh MD Number of Addenda: 0 Note Initiated On: 09/14/2024 7:57 AM Scope In: Scope Out: ? Endoscopy Department at [facility] - [address] [place] [address], ? [place] [address] Procedure Note Dylon Yeh MD - 09/14/2024 [facility] GI Patient Name: Teodora Dunne Procedure Date: 09/14/2024 7:57 AM Date of : 1965 Age: 59 Room: ROOM 14 Gender: Female Note Status: Finalized Attending MD: Dylon Yeh MD, Procedure Date No Time: 09/14/2024 Procedure: Colonoscopy Indications: Iron deficiency anemia Providers: Dylon Yeh MD Referring MD: Dylon Yeh MD Medicines: Monitored Anesthesia Care Complications: No immediate complications. Estimated Blood Loss: Estimated blood loss: none. Procedure: Pre-Anesthesia Assessment: - ASA Grade Assessment: II - A patient with mild systemic disease. - After reviewing the risks and benefits, thepatient was deemed in satisfactory condition to undergo the procedure. After I obtained informed consent, the scope was passed under direct vision. Throughout theprocedure, the patient's blood pressure, pulse, and oxygen saturations were monitored continuously.The Olympus Pediatric Colonoscope was introduced through theanus and advanced to the cecum, identified byappendiceal orifice and ileocecal valve. The colonoscopy was performed without difficulty. The patient tolerated the procedure well. The quality of the bowel preparation was good. Findings: Scattered small-mouthed diverticula were found inthe entire colon. There was evidence of a prior mxu-kw-ohkvfkbg-colonic anastomosis in the recto-sigmoid colon. This was patent and was characterized by healthy appearing mucosa. Non-bleeding internal hemorrhoids were found during retroflexion. The hemorrhoids were small. The exam was otherwise without abnormality ondirect and retroflexion views. NO IMAGES SECONDARY TO PROVATION Procedure Code(s): --- Professional --- 65445, Colonoscopy, flexible; diagnostic, including collection of specimen(s) by brushing or washing,when performed (separate procedure) Diagnosis Code(s): --- Professional --- D50.9, Iron deficiency anemia, unspecified CPT copyright 2020 [employer]. All rights reserved. The codes documented in this report are preliminary and upon retail loan originator assistant reviewmay be revised to meet current compliance requirements. Dylon Yeh MD 09/14/2024 8:22:44 AM This report has been signed electronically.Dylon Yeh MD Number of Addenda: 0 Note Initiated On: 09/14/2024 7:57 AM Scope In: Scope Out: Endoscopy Department at [facility] - [address] [place] [id number] IMPRESSION: - Diverticulosis in the entire examined colon. - Patent end-to-side colo-colonic anastomosis, characterized by healthy appearing mucosa. - Non-bleeding internal hemorrhoids. - The examination was otherwise normal on directand retroflexion views. - No specimens collected. Recommendation: - Perform an upper GI endoscopy today. - Repeat colonoscopy in 10 years forsurveillance. 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
== END 2024-12-21 15:42 | disposition home or self-care (01) ==
LOC: HO.HSMS 15:10
PROVIDERS: PCP Internal Medicine; Visit Provider Psychiatry & Neurology Neurology
DX: G43.719 Chronic migraine without aura, intractable, without status migrainosus (principal)
CPT/HCPCS: 64615

== ENCOUNTER → 2024-12-21 15:09 | Outpatient (BNVA) | payer OTHER, SELFPAY | PROVIDERS: PCP Internal Medicine; Visit Provider Psychiatry & Neurology Neurology | DX: G43.709 Chronic migraine without aura, not intractable, without status migrainosus (principal) | CPT/HCPCS: 64615; 99211; J0585 ==

== ENCOUNTER 2025-02-26 11:24 | Outpatient (AMB) | payer OTHER, SELFPAY ==
--- NOTE | 2025-02-26 11:35 | A.OFFVIS_ITS ---
Vital Signs 02/26/25 11:36 Height 4 ft 9 in Weight 119 lb 6 oz BMI 25.8 BP 144/90 H Blood Pressure Location Rt brachial Position Sitting Pulse 91 Pulse Source Pulse Oximeter Pulse Oximetry (%) 99 Oxygen Delivery Method Room Air Intake Visit Reasons: 2 wks with Migraine Intake Note: Pt presents to the office today for a migraine that has been going on for the past 2 weeks. Gastroenterology Physician Required: No Accompanied by: Self / Same As Patient Allergies amoxicillin Adverse Reaction (Intermediate, Verified 02/26/25 11:38) Stomach Upset ibuprofen (From Motrin) Adverse Reaction (Intermediate, Verified 02/26/25 11:38) Stomach Upset Medication List - Last Reconciled 02/26/25 by SAPNA Max atorvastatin 10 mg PO DAILY eiafaxamwg-atwbiyyboanqq-bkok 50-325-40 mg 1 tab PO Q4H PRN 30 days cholecalciferol (vitamin D3) (Vitamin D3) 25 mcg PO DAILY clonidine HCl 0.2 mg PO BEDTIME clonidine HCl 0.2 mg PO BEDTIME dulaglutide (Trulicity) 3 mg subcut QWEEK estradiol 1 patch transdermal .weekly famotidine 40 mg PO BID ferrous sulfate (FeroSul) 325 mg PO DAILY hydrochlorothiazide 25 mg PO DAILY metformin 1,000 mg PO BID metoprolol succinate ER 100 mg PO DAILY onabotulinumtoxinA (Botox) 200 units IM ONCE 12 weeks riboflavin (vitamin B2) 400 mg PO DAILY 30 days HPI Comments Details: 59-yr-old female presents for urgent visit for evaluation of prolonged migraine attack, in setting of known chronic migraine. About 1.5 weeks ago, she developed her typical migraine, which initially responded to usual PRN medication, ice, and rest, but later intensified with increased dizziness and nausea, causing her to leave work. Headache has fluctuated, with one headache-free day 3 days ago before returning 2 days ago. No clear triggers identified, though she notes increased sleepiness and is due for her scheduled injection next week. Right sided stabbing, and holocranial head pressure, and focal left occipital region tenderness a/w more nausea, more dizziness, photophobia, phonophobia, and prominent osmophobia. This is her usual migraine just more intense w/ more pronounced Patient denies any other preceding infections or health changes, other than earlier this year, she experienced increased sleepiness, including falling asleep while inactive or at work. Labs through her PCP showed low B12 and iron. She began supplementation for both, with B12 improving but iron remaining low. GI workup, including endoscopy and colonoscopy, was normal. She was referred to hematology and started on iron infusions in November. 08/30/2024, previous HPI: Patient reports overall Botox for chronic migraine has done effective. She typically only notices a breakthrough migraine with big storm. She has intermittent intense left parietal stabbing pain, lasting for seconds, without clear autonomic s/s, which can be f/b a migraine but not always. She can not have cervical/upper trap tightness, but Botox helps with this as well. She states that the previous order for Fioricet capsules was/is not as effective as the Fioricet tab she took in the past. She ask if OTC migraine cooling/ice caps can be effective for migraine treatment. She also ask exactly how Botox works- if it is just that it relaxes the muscles. Baseline headache characteristics: Severe bifrontal, berny jaws, eyes, and top of head. A/w photophobia, phonophobia, and prominent osmophobia, nausea. In the past, she had visual aura- like looking through plastic/blurring moving objects. [facility] Medical History Chronic migraine without aura, intractable, without status migrainosus Insomnia Fibromyalgia Chronic constipation Bilateral cataracts Anxiety Diverticulosis Mucinous cystadenocarcinoma of right ovary Rectal prolapse Mild mitral regurgitation Diabetes HTN (hypertension) PEGGY (obstructive sleep apnea) Arthritis Surgical History H/O lateral meniscus repair of right knee H/O repair of rotator cuff H/O: hysterectomy Family History Maternal Grandmother Colon cancer Social History Alcohol intake: never Patient Tobacco Use Status: Never used Tobacco Physical Exam Vital Signs: Last Vital Signs Pulse 91 02/26/25 11:36 BP 144/90 H 02/26/25 11:36 Pulse Ox 99 02/26/25 11:36 Oxygen Delivery Method Room Air 02/26/25 11:36 BMI result Body Mass Index 25.8 Const General: cooperative Orientation/consciousness: patient oriented x3 Resp Effort & Inspection: normal respiratory effort and able to speak in complete sentences Neuro Other: No palpable scalp or facial tenderness. Mildly limited cervical range of motion without discomfort. General: patient oriented x3 Cranial nerves: Yes CN's II-XII intact bilaterally Cognition (Neuro): normal cognition Motor exam (neuro): 5/5 motor strength present throughout Psych Appearance: grossly normal Mental Status: mental status grossly normal Speech and movement: Normal speech and movement present Affect: normal affect Attitude: cooperative Assessment & Plan Assessment & Plan (1) Status migrainosus without intractable migraine: Code(s): G43.901 - Migraine, unspecified, not intractable, with status migrainosus Category: Medical Qualifiers: Migraine type: chronic migraine (15 or more days per month) without aura Qualified Code(s): G43.701 - Chronic migraine without aura, not intractable, with status migrainosus (2) Chronic migraine without aura: Code(s): G43.709 - Chronic migraine without aura, not intractable, without status migrainosus Category: Medical Qualifiers: Intractability: intractable Status migrainosus presence: without status migrainosus Qualified Code(s): G43.719 - Chronic migraine without aura, intractable, without status migrainosus (3) Stabbing headache: Comment: Left-sided Code(s): G44.85 - Primary stabbing headache Category: Medical (4) Migraine with aura, intractable, without status migrainosus: Code(s): G43.119 - Migraine with aura, intractable, without status migrainosus Category: Medical Plan For status migraine: Trial sample of Zavegepant 10mg nasal spray, 1 nasal spray slowly at onset of m igraine attack. Start zofran ODT 4-8mg BID prn, amx 4 tabs per day. For now, may continue Fioricet 1-2 caps every 4 hours as needed, max of 6 per day. Check labs today- to assess for secondary etiologies * Lab orders handed to patient, as she was due to have labs at [place] per Hematology. Patient advised to alert us if Zavegepant is effective or not, so we can consider additional/alternate treatment interventions. In the meantime, continue chronic migraine and left-sided stabbing headache regimen as below: Left-sided stabbing headache: Continue Fioricet at onset of an attack, to see if this prevents repeated attacks- we will adjust order from capsule 2 tablet version. Could consider Indomethacin trial however pt has h/o GIp upset w/ NSAID use. Alternates: gabapentin, melatonin, nerve blocks, targeted left parietal Botox. ? For acute migraine tx: May continue Fioricet up to 10 tabs per month. Patient may trial OTC migraine cooling cap, many people with migraine find these beneficial. Hold Sumatriptan 100mg tab- pt no longer taking. Future considerations: Trial of Nurtec or Ubrelvy, however Fioricet would be to be held prior to trialing either of these. ? For chronic migraine prevention: Continue Riboflavin 400mg qam. Continue Magnesium 400mg qhs. Continue Metoprolol- taken primarily for HTN. Continue Botox, as patient continues to experience significant reduction in her migraine attacks. Reviewed general mechanism of action of Botox. Previous migraine prevention trials: Amitriptyline did not help, topiramate- she could not tolerate, propranolol did not help, verapramil did not help, Aimovig- caused constipation. Emgality caused constipation. Magnesium- unsure if helped. Contraindications: I would avoid Ajovy or Qulipta as pt has h/o IBS and had constipation to both Aimovog and Emgality. ? Follow-up for Botox w/ Dr Prather as scheduled F/u w/ [facility] in at 6 months or sooner prn. Zavegepant 10 mg Nasal [place] (1 single 10 mg nasal spray per 1 sample box) - Sample Dispensing documentation Patient Name: Teodora Dunne Date Given: 02/26/2025 Quantity Given: 2 boxes (20 mg total) Lot #: [id number] Expiration Date: 07/2025 Given By: ZACHARY Max Instructions for Use ? Zavegepant 10 mg Nasal [place] 1. When to Use * Use at the first sign of migraine symptoms. * Do not take more than 10 mg (1 spray) in a 24-hour period. 2. How to Use * Clear Your Nose * Gently blow your nose. * Prepare the Device * Hold the spray upright. * With your free hand, gently press one nostril closed. * Continue breathing normally through your mouth. * Insert the Nozzle * Place the nozzle into your open nostril as far as comfortable. * Deliver the Dose * Keep your head upright (do not tilt back or lie down). * Close your mouth. * Slowly breathe in through your nose as you press the plunger up firmly with your thumb. * Keep the nozzle in your nose while pressing?spray only once into one nostril. * After the [place] * Remove the nozzle and release your other nostril. * Keep your head upright and breathe gently through your nose and out your mouth for 10?20 seconds. * If you feel liquid in your nose, sniff gently to avoid losing the dose. 3. Storage * Store at room temperature (68?F?77?F / 20?C?25?C). * Do not freeze. * Keep in the sealed blister package until ready to use. * Keep out of reach of children. Orders: Orders Ferritin Today E53.8 - Deficiency of other specified B group vitamins, E61.1 - Iron deficiency, G43.901 - Migraine, unspecified, not intractable, with status migrainosus Erythrocyte Sedimentation Rate Today E53.8 - Deficiency of other specified B group vitamins, E61.1 - Iron deficiency, G43.901 - Migraine, unspecified, not intractable, with status migrainosus Comprehensive [place]. Panel Fast Today E53.8 - Deficiency of other specified B group vitamins, E61.1 - Iron deficiency, G43.901 - Migraine, unspecified, not intractable, with status migrainosus Vitamin B12 and Folate Today E53.8 - Deficiency of other specified B group vitamins, E61.1 - Iron deficiency, G43.901 - Migraine, unspecified, not intractable, with status migrainosus Vitamin B6 Today D64.9 - Anemia, unspecified, E53.8 - Deficiency of other specified B group vitamins, E61.1 - Iron deficiency, G43.901 - Migraine, unspecified, not intractable, with status migrainosus IRON PROFILE Today D64.9 - Anemia, unspecified, E53.8 - Deficiency of other specified B group vitamins, E61.1 - Iron deficiency, G43.901 - Migraine, unspecified, not intractable, with status migrainosus Homocysteine Today E53.8 - Deficiency of other specified B group vitamins, E61.1 - Iron deficiency, G43.901 - Migraine, unspecified, not intractable, with status migrainosus Methylmalonic Acid Today E53.8 - Deficiency of other specified B group vitamins, E61.1 - Iron deficiency, G43.901 - Migraine, unspecified, not intractable, with status migrainosus Hemoglobin A1c Today E11.9 - Type 2 diabetes mellitus without complications, E53.8 - Deficiency of other specified B group vitamins, E61.1 - Iron deficiency, G43.901 - Migraine, unspecified, not intractable, with status migrainosus C Reactive Protein Today E53.8 - Deficiency of other specified B group vitamins, E61.1 - Iron deficiency, G43.901 - Migraine, unspecified, not intractable, with status migrainosus Complete Blood Count Auto Diff Today E53.8 - Deficiency of other specified B group vitamins, E61.1 - Iron deficiency, G43.901 - Migraine, unspecified, not intractable, with status migrainosus Vitamin B1 Today E51.9 - Thiamine deficiency, unspecified, E53.8 - Deficiency of other specified B group vitamins, E61.1 - Iron deficiency, G43.901 - Migraine, unspecified, not intractable, with status migrainosus TSH reflex Free T4 Today E53.8 - Deficiency of other specified B group vitamins, E61.1 - Iron deficiency, G43.901 - Migraine, unspecified, not intractable, with status migrainosus Medications: New ondansetron 4 - 8 mg (1 - 2 x 4 mg) PO BID PRN 30 tabs 1RF nausea and vomiting 30 days MDD 4 tabs Coding Level of Care Code Est Pt Level 4 (32460) Diagnoses Chronic migraine without aura with status migrainosus, not intractable G43.701 Migraine type: chronic migraine (15 or more days per month) without aura Intractable chronic migraine without aura and without status migrainosus G43.719 Intractability: intractable Status migrainosus presence: without status migrainosus Stabbing headache G44.85 Migraine with aura, intractable, without status migrainosus G43.119
[2025-02-26 11:36] VITALS: BP 144/90; PULSE 91; O2SAT 99; BMI 25.8
== END 2025-02-26 12:19 | disposition home or self-care (01) ==
LOC: HO.HSMS 11:24
PROVIDERS: PCP Internal Medicine; Visit Provider Nurse Practitioner Family
DX: G43.701 Chronic migraine without aura, not intractable, with status migrainosus (principal); G43.719 Chronic migraine without aura, intractable, without status migrainosus; G44.85 Primary stabbing headache; G43.119 Migraine with aura, intractable, without status migrainosus
CPT/HCPCS: 99214

== ENCOUNTER → 2025-03-12 09:32 | Outpatient (BNVA) | payer OTHER, SELFPAY | PROVIDERS: PCP Internal Medicine; Visit Provider Registered Nurse | DX: S90.31XA Contusion of right foot, initial encounter (principal); S29.012A Strain of muscle and tendon of back wall of thorax, initial encounter; W03.XXXA Other fall on same level due to collision with another person, initial encounter | CPT/HCPCS: 99202 ==

== ENCOUNTER → 2025-03-22 14:22 | Outpatient (BNVA) | payer OTHER, SELFPAY | PROVIDERS: PCP Internal Medicine; Visit Provider Emergency Medicine | DX: S90.31XD Contusion of right foot, subsequent encounter (principal); S39.012D Strain of muscle, fascia and tendon of lower back, subsequent encounter; W03.XXXD Other fall on same level due to collision with another person, subsequent encounter; Z02.79 Encounter for issue of other medical certificate | CPT/HCPCS: 99213 ==

== ENCOUNTER 2025-04-02 14:37 | Outpatient (AMB) | payer OTHER, SELFPAY ==
--- NOTE | 2025-04-02 14:38 | MHC.OFFVIS ---
Vital Signs 04/02/25 14:39 Height 4 ft 9 in Weight 121 lb BMI 26.2 BP 138/84 Blood Pressure Location Rt brachial Position Sitting Pulse 80 Pulse Source Pulse Oximeter Pulse Oximetry (%) 100 Oxygen Delivery Method Room Air Intake Visit Reasons: Botox Intake Note: Botox Operations Officer Afloat Required: No Accompanied by: Self / Same As Patient Allergies amoxicillin Adverse Reaction (Intermediate, Verified 04/02/25 14:39) Stomach Upset ibuprofen (From Motrin) Adverse Reaction (Intermediate, Verified 04/02/25 14:39) Stomach Upset Medication List - Last Reconciled 04/02/25 by Page Prather MD atorvastatin 10 mg PO DAILY egioifdzvo-laqcweynleefj-afpd 50-325-40 mg 1 tab PO Q4H PRN 30 days cholecalciferol (vitamin D3) (Vitamin D3) 25 mcg PO DAILY clonidine HCl 0.2 mg PO BEDTIME cyanocobalamin (vitamin B-12) 1,000 mcg PO DAILY dicyclomine 10 mg PO TID dulaglutide (Trulicity) 3 mg subcut QWEEK estradiol 1 patch transdermal .weekly famotidine 40 mg PO BID ferrous sulfate (FeroSul) 325 mg PO DAILY fluticasone propionate 50 mcg/actuation 2 sprays intranasal DAILY hydrochlorothiazide 25 mg PO DAILY losartan 100 mg PO DAILY metformin 1,000 mg PO BID metoprolol succinate ER 100 mg PO DAILY onabotulinumtoxinA (Botox) 200 units IM ONCE 12 weeks riboflavin (vitamin B2) 400 mg PO DAILY 30 days HPI Comments Details: ? 59y/o female comes for treatment of migraines with botox. How many migraine days prior to botox-25-30 days How long do the migraines last 1-2 days Intensity of migraine 8-04/26 ER visits related to migraine- 3 Effectiveness of botox from last two treatment(s) How many migraine days since receiving treatment: Change? in intensity of migraine?3-8 Change in frequency of migraine? 3-4/month Change in use of acute medication for migraine? decreased Change in quality of life?improved ER visits related to migraine?none Have at least three months elapsed since last treatment (Last botox date - frequency of injections) 3 mths she had 3 days of migraine last month ??? Most frequent reported adverse reactions following injection of botox for chronic migraine include neck pain (9%), headache(5%), eyelid ptosis(4%), migraine(4%), muscular weakness(4%), musculuskeletal stiffness(4%), bronchitis(3%), injection site pain (3%), musculoskeletal pain(3%), myalgia(3%), facial paresis(2%), HTN(2%) and muscle spasms(2%) were discussed in detail. ??? Botulinum toxin typeA 200units Lot no [id number] expiration Aug 2027 was diluted with 4 cc of normal saline . ??? Muscles injected- ??? Frontalis 4 sites ??? Procerus 1 site ???Corrugators 2 sites ??? Temporalis- 8 sites ??? Occipitalis- 6 sites ??? Cervical paraspinals- 4 sites ??? Trapezius- 6 sites- ??? 5 units each in 31 site ??? Total use- 155units ??? Discarded-45units [facility] Medical History Chronic migraine without aura, intractable, without status migrainosus Insomnia Fibromyalgia Chronic constipation Bilateral cataracts Anxiety Diverticulosis Mucinous cystadenocarcinoma of right ovary Rectal prolapse Mild mitral regurgitation Diabetes HTN (hypertension) PEGGY (obstructive sleep apnea) Arthritis Surgical History H/O lateral meniscus repair of right knee H/O repair of rotator cuff H/O: hysterectomy Family History Maternal Grandmother Colon cancer Social History Alcohol intake: never Patient Tobacco Use Status: Never used Tobacco Physical Exam Vital Signs: Last Vital Signs Pulse 80 04/02/25 14:39 BP 138/84 04/02/25 14:39 Pulse Ox 100 04/02/25 14:39 Oxygen Delivery Method Room Air 04/02/25 14:39 BMI result Body Mass Index 26.2 Const General: cooperative and no acute distress Orientation/consciousness: patient oriented x3 Resp Effort & Inspection: normal respiratory effort and able to speak in complete sentences Neuro General: patient oriented x3 Cognition (Neuro): normal cognition Psych Appearance: grossly normal Mental Status: mental status grossly normal Speech and movement: Normal speech and movement present Affect: normal affect Attitude: cooperative Office Procedures Botulinum toxin Injection 90933 - Migraine Procedure code (CPT) selection complete Office Meds onabotulinumtoxinA 200 unit solution for injection Performing Provider: Page Prather MD Performing Location[place] [facility] [place] [facility] Administered by: Page Prather MD on 04/02/25 15:10 Dose Route Admin Location Dispensed Lot Number Expiration Date [facility] Client Relation Specialist 155 unit IM 200 units [id number] ALLERGAN/BOTOX Total Dispensed Waste 200 units 22.5 % Comments: see hpi Assessment & Plan Assessment & Plan (1) Migraine with aura, intractable, without status migrainosus: Code(s): G43.119 - Migraine with aura, intractable, without status migrainosus Category: Medical (2) Chronic migraine without aura: Code(s): G43.709 - Chronic migraine without aura, not intractable, without status migrainosus Category: Medical Qualifiers: Status migrainosus presence: without status migrainosus Intractability: intractable Qualified Code(s): G43.719 - Chronic migraine without aura, intractable, without status migrainosus (3) Chronic migraine without aura, intractable, without status migrainosus: Code(s): G43.719 - Chronic migraine without aura, intractable, without status migrainosus Category: Medical Plan Patient tolerated the procedure well SHe will call with any side effects Orders: Orders AMB Botulinum toxin Injection Today G43.719 - Chronic migraine without aura, intractable, without status migrainosus Coding Level of Care Code Est Pt Level 1 (63986) Diagnoses Migraine with aura, intractable, without status migrainosus G43.119 Intractable chronic migraine without aura and without status migrainosus G43.719 Status migrainosus presence: without status migrainosus Intractability: intractable Chronic migraine without aura, intractable, without status migrainosus G43.719 CPT Codes Botox Injection - Botox 3: 65094 - Migraine ([id number])
[2025-04-02 14:39] VITALS: BP 138/84; PULSE 80; O2SAT 100; BMI 26.2
== END 2025-04-02 15:09 | disposition home or self-care (01) ==
LOC: HO.HSMS 14:38
PROVIDERS: PCP Internal Medicine; Visit Provider Psychiatry & Neurology Neurology
DX: G43.719 Chronic migraine without aura, intractable, without status migrainosus (principal)
CPT/HCPCS: 64615

== ENCOUNTER → 2025-04-02 14:37 | Outpatient (BNVA) | payer OTHER, SELFPAY | PROVIDERS: PCP Internal Medicine; Visit Provider Psychiatry & Neurology Neurology | DX: G43.719 Chronic migraine without aura, intractable, without status migrainosus (principal) | CPT/HCPCS: 64615; 99211; J0585 ==

== ENCOUNTER 2025-07-02 10:55 | Outpatient (AMB) | payer OTHER, SELFPAY ==
[2025-07-02 10:59] VITALS: BP 140/84; PULSE 85; O2SAT 100; BMI 26.9
--- NOTE | 2025-07-02 10:59 | A.OFFVIS_ITS ---
Vital Signs 07/02/25 10:59 Height 4 ft 9 in Weight 124 lb 4 oz BMI 26.9 BP 140/84 H Blood Pressure Location Rt brachial Position Sitting Pulse 85 Pulse Source Pulse Oximeter Pulse Oximetry (%) 100 Oxygen Delivery Method Room Air Intake Visit Reasons: Botox Intake Note: Botox 200 Canine Service Teacher Required: No Accompanied by: Self / Same As Patient Allergies amoxicillin Adverse Reaction (Intermediate, Verified 07/02/25 10:59) Stomach Upset ibuprofen (From Motrin) Adverse Reaction (Intermediate, Verified 07/02/25 10:59) Stomach Upset Medication List - Last Reconciled 07/02/25 by Page Prather MD atorvastatin 10 mg PO DAILY xwtaokabyz-uvrzggpewxdbr-qiux 50-325-40 mg 1 tab PO Q4H PRN 30 days cholecalciferol (vitamin D3) (Vitamin D3) 25 mcg PO DAILY clonidine HCl 0.2 mg PO BEDTIME cyanocobalamin (vitamin B-12) 1,000 mcg PO DAILY dicyclomine 10 mg PO TID dulaglutide (Trulicity) 3 mg subcut QWEEK estradiol 1 patch transdermal .weekly famotidine 40 mg PO BID ferrous sulfate (FeroSul) 325 mg PO DAILY hydrochlorothiazide 25 mg PO DAILY lorazepam 0.5 mg PO DAILY PRN losartan 100 mg PO DAILY magnesium oxide 400 mg PO DAILY metformin 1,000 mg PO BID metoprolol succinate ER 100 mg PO DAILY onabotulinumtoxinA (Botox) 200 units IM ONCE 12 weeks riboflavin (vitamin B2) 400 mg PO DAILY 30 days HPI Comments Details: ? 60y/o female comes for treatment of migraines with botox. How many migraine days prior to botox-25-30 days How long do the migraines last 1-2 days Intensity of migraine 8-04/26 ER visits related to migraine- 3 Effectiveness of botox from last two treatment(s) How many migraine days since receiving treatment: Change? in intensity of migraine?3-8 Change in frequency of migraine? 3-4/month Change in use of acute medication for migraine? decreased Change in quality of life?improved ER visits related to migraine?none Have at least three months elapsed since last treatment (Last botox date - frequency of injections) 3 mths she had 3 days of migraine last month ??? Most frequent reported adverse reactions following injection of botox for chronic migraine include neck pain (9%), headache(5%), eyelid ptosis(4%), migraine(4%), muscular weakness(4%), musculuskeletal stiffness(4%), bronchitis(3%), injection site pain (3%), musculoskeletal pain(3%), myalgia(3%), facial paresis(2%), HTN(2%) and muscle spasms(2%) were discussed in detail. ??? Botulinum toxin typeA 200units Lot no [id number] expiration September 2027 was diluted with 4 cc of normal saline . ??? Muscles injected- ??? Frontalis 4 sites ??? Procerus 1 site ???Corrugators 2 sites ??? Temporalis- 8 sites ??? Occipitalis- 6 sites ??? Cervical paraspinals- 4 sites ??? Trapezius- 6 sites- ??? 5 units each in 31 site ??? Total use- 155units ??? Discarded-45units [facility] Medical History Chronic migraine without aura, intractable, without status migrainosus Insomnia Fibromyalgia Chronic constipation Bilateral cataracts Anxiety Diverticulosis Mucinous cystadenocarcinoma of right ovary Rectal prolapse Mild mitral regurgitation Diabetes HTN (hypertension) PEGGY (obstructive sleep apnea) Arthritis Surgical History H/O lateral meniscus repair of right knee H/O repair of rotator cuff H/O: hysterectomy Family History Maternal Grandmother Colon cancer Social History Alcohol intake: never Patient Tobacco Use Status: Never used Tobacco Physical Exam Vital Signs: Last Vital Signs Pulse 85 07/02/25 10:59 BP 140/84 H 07/02/25 10:59 Pulse Ox 100 07/02/25 10:59 Oxygen Delivery Method Room Air 07/02/25 10:59 BMI result Body Mass Index 26.9 Const General: cooperative and no acute distress Orientation/consciousness: patient oriented x3 Resp Effort & Inspection: normal respiratory effort and able to speak in complete sentences Neuro General: patient oriented x3 Cognition (Neuro): normal cognition Psych Appearance: grossly normal Mental Status: mental status grossly normal Speech and movement: Normal speech and movement present Affect: normal affect Attitude: cooperative Office Procedures Botulinum toxin Injection 95135 - Migraine Procedure code (CPT) selection complete Office Meds onabotulinumtoxinA 200 unit solution for injection Performing Provider: Page Prather MD [place] [facility] [place] [facility] Administered by: Page Prather MD on 07/02/25 11:27 Dose Route Admin Location Dispensed Lot Number Expiration Date [facility] Orthodontist Assistant 155 unit subcut 200 units [id number] ALLERGAN /BOTOX Total Dispensed Waste 200 units 22.5 % Comments: see hpi Assessment & Plan Assessment & Plan (1) Migraine with aura, intractable, without status migrainosus: Code(s): G43.119 - Migraine with aura, intractable, without status migrainosus Category: Medical (2) Chronic migraine without aura: Code(s): G43.709 - Chronic migraine without aura, not intractable, without status migrainosus Category: Medical Qualifiers: Status migrainosus presence: without status migrainosus Intractability: intractable Qualified Code(s): G43.719 - Chronic migraine without aura, intractable, without status migrainosus (3) Chronic migraine without aura, intractable, without status migrainosus: Code(s): G43.719 - Chronic migraine without aura, intractable, without status migrainosus Category: Medical Plan Patient tolerated the procedure well SHe will call with any side effects Orders: Orders AMB Botulinum toxin Injection Today G43.719 - Chronic migraine without aura, intractable, without status migrainosus Coding Level of Care Code Est Pt Level 1 (42698) Diagnoses Migraine with aura, intractable, without status migrainosus G43.119 Intractable chronic migraine without aura and without status migrainosus G43.719 Status migrainosus presence: without status migrainosus Intractability: intractable Chronic migraine without aura, intractable, without status migrainosus G43.719 CPT Codes Botox Injection - Botox 3: 99293 - Migraine ([id number])
--- OUTSIDE RECORDS SUMMARY | 2025-07-02 14:14 | XMS_ITS | Clinical Summary ---
Author Organization [facility] [address] [facility] ilding Address [address] [place] [address] Phone Care Team Providers Care Supervisor Welding Equipment Repairer Name Role Phone Olivier Hilario MD Primary Care Provider + [phone] Allergies Active Allergy Reactions Criticality Noted Date [...] mg tablet See Instructions, TOME DELMI TABLETA TODOS LOS WORTHY, # 90 tablet, 4 Refills, Maintenance, 08/05/23 2:54:00 PM EST, [facility]/pharmacy #[id number], 145, cm, 06/23/23 13:10:00 EST, Height, 57.09, kg, 04/25/23 15:13:00 EDT, Dry Weight 08/05/19 Active hydroCHLOROthiazi de (HYDRODIURIL) 25 mg tablet See Instructions, TOME DELMI TABLETA TODOS LOS WORTHY, # 90 tablet, Refills 3, Tot. Refills 3, Maintenance, 07/04/24 7:20:00 AM EST, Instructions Replace Required Details, Route to Pharmacy Electronically, [facility]/pharmacy #[id number], 145, cm, 07/03/24 15:48:00 EST, Height, 57.181, kg, 07/03/24 15:48:00 EST, Dry Weight 07/04/20 Active butalbital-acetam inophen-caffeine 50-300-40 mg capsule TAKE 1 - 2 CAPSULES BY MOUTH EVERY 4 TO 6 HOURS NEEDED FOR MIGRAINE HEADACHE FOR 30 DAYS 05/18/20 24 Active dicyclomine (BENTYL) 10 mg capsuleIndication s:Irritable bowel syndrome with diarrhea Take 1 capsule (10 mg total) by mouth 3 (three) times a day. 270 each 3 09/27/19 25 026 Active methocarbamoL 1,000 mg tablet Take 1,000 mg by mouth if needed (Take 1-2 times a day for severe tension headache). 14 tablet 05/06/20 25 Active ondansetron ODT (ZOFRAN-ODT) 4 mg disintegrating tablet Let 1 tablet dissolve under the tongue three times daily as needed for nausea or vomiting. 10 tablet 05/06/20 25 Active famotidine (PEPCID) 40 mg tabletIndications :Gastroesophageal reflux disease without esophagitis Take 1 tablet (40 mg total) by mouth 2 (two) times a day. 180 each 3 06/18/20 25 026 Active famotidine (PEPCID) 40 mg tabletIndications :Gastroesophageal reflux disease without esophagitis Take 1 tablet (40 mg total) by mouth 2 (two) times a day. 180 each 3 07/20/19 25 025 Disconti nued(Reo rder) Active Problems Problem Noted Date Diagnosed Date [...] Encounters Date Type Department Care Team Description 06/18/2025 Telephone Gastroenterology - [address] [place] [address] Dylon Yeh MD 05/06/2025 9:50 AM EDT - 05/06/2025 2:09 PM EDT Emergency [facility] Emergency [address] [place] [address] Tension headache (Primary Dx) Discharge Disposition: Home or Self Care from Last 3 Months Surgical History Surgery [...] History Date Comments Hypertension Hyperlipidemia Diabetes mellitus ([facility] V24, [facility] V28) Sleep apnea GERD (gastroesophageal reflux disease) Ovarian ca ([facility] V24, [facility] V28) Social History Tobacco Use Types Packs/Day Years Used Date Smoking Tobacco: Never Smokeless Tobacco: Never Tobacco Cessation:Counseling Given: Not Answered Alcohol Use Standard Drinks/Week Comments Not Currently 0 (1 standard drink = 0.6 oz pur e alcohol) Interpersonal Safety Answer Date Record ed Physical Abuse Unrecognized value 09/14/2024 Verbal Abuse Unrecognized value 09/14/2024 Comments Unknown Sex and Gender Information Value Date Recorded Sex Assigned at Female 09/13/2024 3:58 PM EST Legal Sex Female 7:02 AM EST Gender Identity Female 09/13/2024 3:58 PM EST Sexual Orientation Straight 09/14/2024 6: 51 AM EST Last Filed Vital Signs Vital Sign Reading Time Taken Comments Blood Pressure 163/93 05/06/2025 12:03 PM EDT Pulse 79 05/06/2025 12:03 PM EDT Temperature 36.7 C (98.1 F) 05/06/2025 12:03 PM EDT Respiratory Rate 16 05/06/2025 12:03 PM EDT Oxygen Saturation 97% 05/06/2025 12:03 PM EDT Inhaled Oxygen Concentration - - Weight 56.7 kg (125 lb) 05/06/2025 9:30 AM EDT Height 144.8 cm (4' 9 ) 05/06/2025 9:30 AM EDT Body Mass Index 27.05 05/06/2025 9:30 AM EDT Plan of Treatment Upcoming Encounters Date Type Department Care Team (Late st Contact Info) Description 09/05/2025 2:45 PM EST Office Visit [facility] Hematology Oncology [address] [place] [id number] Ila Talley PA [address] [place] [address] Health Maintenance Due Date Last Done Comments Breast Cancer Screening 1965 Drug Screen 1965 Non-Opioid Controlled Substance Agreement 1965 Diabetes: Annual Foot Exam 1974 Diabetes: Annual Retina Eye Exam 1974 Cervical Cancer Screening: Pap Smear 1985 RSV Immunization Adult Patients (1 - Risk 50-74 years 1-dose series) 2014 Cholesterol Screening (Lipid Panel) 06/20/2022 HIV Screening 06/20/2022 Hepatitis C Screening 06/20/2022 Social Influencers of Health Screening 06/20/2022 Depression Screening 07/18/2024 Diabetes: Annual Urine Albumin-Creatinine Ratio (uACR) 07/20/2024 Hepatitis A Vaccines (2 of 2 - Risk 2-dose series) 09/26/2024 03/29/2024 Diabetes: Blood Sugar Control Test (HGBA1C) 08/30/2025 02/27/2025 COVID-19 Vaccine (9 - Pfizer risk season) 2025 04/27/2025, 04/20/2024, 05/17/2023, Additional history exists Diabetes: Annual GFR (Glomerular Filtration Rate) 02/27/2026 02/27/2025, 12/03/2024 Hypertension/CHF/CAD Annual BMP Blood Test 02/27/2026 02/27/2025, 12/03/2024 DTaP,Tdap,and Td Vaccines (5 - Td or Tdap) 05/23/2028 05/23/2018, 08/31/2016, 09/03/2007, Additional history exists Colorectal Cancer Screening: Colonoscopy 09/14/2034 09/14/2024 Zoster Vaccines Completed 01/16/2019, 09/27/2018 Pneumococcal Vaccine: 50+ Years Completed 09/22/2023, 10/24/2014 Hepatitis B Vaccines Completed 05/01/2024, 03/29/2024, 03/08/2003, Additional history exists Influenza Vaccine Completed 04/27/2025, , 05/17/2023, Additional history exists HIB Vaccines Aged Out [...] Procedure Name Priority Date/Time Associated Diagnosis Comments COMPREHENSIVE METABOLIC PANEL Routine 02/27/2025 7:40 AM EDT Deficiency of other specified B group vitamins Iron deficiency Migraine with status migrainosus Thiamin deficiency Anemia, unspecified HEMOGLOBIN A1C Routine 02/27/2025 7:40 AM EDT Deficiency of other specified B group vitamins Iron deficiency Migraine with status migrainosus Thiamin deficiency Anemia, unspecified COLONOSCOPY Routine 09/14/2024 8:22 AM EST Iron (Fe) deficiency anemia Vitamin B12 deficiency Diarrhea Change in bowel movement from Last 3 Months or Most Recently Relevant to Health Maintenance Results * (ABNORMAL) Hemoglobin A1c (02/27/2025 7:40 AM EDT) Hemoglobin A1C 6.5(H) <6.5 % LAB CHEMISTRY [facility] Mean Bld Glu Estim. 140 mg/dL LAB CHEMISTRY METHOD 02/27/2025 1:53 PM [facility] Blood Venous blood specimen / Unknown Venipuncture / Unknown 02/27/2025 7:40 AM EDT 02/27/2025 9:41 AM EDT us Maria Esther Juárez DELICATE FABRICS PRESSER LAB BLOOD ORDERABLES Tiffanie l Result [facility] [address] [place] [address], * (ABNORMAL) Comprehensive metabolic panel (02/27/2025 7:40 AM EDT) [facility] Sodium 137 133 - 145 mmol/L LAB CHEMISTRY METHOD 02/27/2025 10:46 AM [facility] Potassium 3.8 3.5 - 5.5 mmol/L LAB CHEMISTRY METHOD 02/27/2025 10:46 AM [facility] Chloride 100 96 - 110 mmol/L LAB CHEMISTRY METHOD 02/27/2025 10:46 AM [facility] CO2 30 21 - 32 mmol/L LAB CHEMISTRY METHOD 02/27/2025 10:46 AM [facility] Anion Gap 7 3 - 11 LAB CHEMISTRY METHOD 02/27/2025 10:46 AM [facility] Glucose 107(H) 70 - 100 mg/dL LAB CHEMISTRY METHOD 02/27/2025 10:46 AM [facility] BUN 24 5 - 25 mg/dL LAB CHEMISTRY METHOD 02/27/2025 10:46 AM [facility] Creatinine 1.50(H) 0.50 - 1.10 mg/dL LAB CHEMISTRY METHOD 02/27/2025 10:46 AM [facility] eGFR 40(L) >=60 mL/min/1. 73m2 LAB CHEMISTRY METHOD 02/27/2025 10:46 AM [facility] Comment:Calculation based on the Chronic Kidney Disease Epidemiology Collaboration (CKD-EPI) equation refit without adjustment for race. BUN/Creatinine Ratio 16.0 LAB CHEMISTRY METHOD 02/27/2025 10:46 AM [facility] Calcium 8.7 8.5 - 10.5 mg/dL LAB CHEMISTRY METHOD 02/27/2025 10:46 AM [facility] AST (SGOT) 18 10 - 42 unit/L LAB CHEMISTRY METHOD 02/27/2025 10:46 AM [facility] ALT (SGPT) 32 10 - 60 unit/L LAB CHEMISTRY METHOD 02/27/2025 10:46 AM [facility] Alkaline Phosphatase 82 42 - 121 unit/L LAB CHEMISTRY METHOD 02/27/2025 10:46 AM [facility] Total Protein 6.8 6.0 - 8.0 g/dL LAB CHEMISTRY METHOD 02/27/2025 10:46 AM [facility] Albumin 3.6 3.2 - 5.0 g/dL LAB CHEMISTRY METHOD 02/27/2025 10:46 AM [facility] Total Bilirubin 0.4 0.0 - 1.4 mg/dL LAB CHEMISTRY METHOD 02/27/2025 10:46 AM [facility] Comment:Results verified by repeat testing Blood Venous blood specimen / Unknown Venipuncture / Unknown 02/27/2025 7:40 AM EDT 02/27/2025 9:39 AM EDT us Maria Esther Juárez DELICATE F[employer] PRESSER LAB BLOOD ORDERABLES Tiffanie l Result [facility] [address] [place], [place] [address] [phone] * COLONOSCOPY Anesthesia - MAC; [facility] ENDOSCOPY (09/14/2024 8:22 AM EST) Anatomical Region Laterality Modality Other 09/14/2024 7:57 AM EST Impressions 09/14/2024 8:22 AM EST - Diverticulosis in the entire examined colon. - Patent end-to-side colo-colonic anastomosis, characterized by healthy appearing mucosa. - Non-bleeding internal hemorrhoids. - The examination was otherwise normal on direct and retroflexion views. - No specimens collected. Recommendation: - Perform an upper GI endoscopy today. - Repeat colonoscopy in 10 years for surveillance. Narrative 09/14/2024 8:22 AM EST [facility] GI Patient Name: Teodora Dunne Procedure Date: [...] reviewing the risks and benefits, the patient was deemed in satisfactory condition to undergo the procedure. After I obtained informed consent, the scope was passed under direct vision. Throughout the procedure, the patient's blood pressure, pulse, and oxygen saturations were monitored continuously.The Olympus Pediatric Colonoscope was introduced through the anus and advanced to the cecum, identified by appendiceal orifice and ileocecal valve. The colonoscopy was performed without difficulty. The patient tolerated the procedure well. The quality of the bowel preparation was good. Findings: Scattered small-mouthed diverticula were found in the entire colon. There was evidence of a prior end-to-side colo-colonic anastomosis in the recto-sigmoid colon. This was patent and was characterized by healthy appearing mucosa. Non-bleeding internal hemorrhoids were found during retroflexion. The hemorrhoids were small. The exam was otherwise without abnormality on direct and retroflexion views. NO IMAGES SECONDARY TO PROVATION Procedure Code(s): --- Professional --- 26157, Colonoscopy, flexible; diagnostic, including collection of specimen(s) by brushing or washing, when performed (separate procedure) Diagnosis Code(s): --- Professional --- D50.9, Iron deficiency anemia, unspecified CPT copyright 2020 [employer]. All rights reserved. The codes documented in this report are preliminary and upon regenerator operator review may be revised to meet current compliance requirements. Dylon Yeh MD 09/14/2024 8:22:44 AM This report has been signed electronically.Dylon Yeh MD Number of Addenda: 0 Note Initiated On: 09/14/2024 7:57 AM Scope In: Scope Out: Endoscopy Department at [facility] - [address] [place] [id number] Procedure Note Dylon Yeh MD - 09/14/2024 [facility] GI Patient Name: Teodora Dunne Procedure Date: 09/14/2024 7:57 AM Date of : 1965 Age: 59 Room: ROOM 14 Gender: Female Note Status: Finalized Attending MD: Dylon Yeh MD, Procedure Date No Time: 09/14/2024 Procedure: Colonoscopy Indications: Iron deficiency anemia Providers: Dylon Yeh MD Referring MD: yDlon Yeh MD Medicines: Monitored Anesthesia Care Complications: [...] colon. There was evidence of a prior cwi-gm-ncxeiedj-colonic anastomosis in the recto-sigmoid colon. This was patent and was characterized by healthy appearing mucosa. Non-bleeding internal hemorrhoids were found during retroflexion. The hemorrhoids were small. The exam was otherwise without abnormality ondirect and retroflexion views. NO IMAGES SECONDARY TO PROVATION Procedure Code(s): --- Professional --- 54182, Colonoscopy, flexible; diagnostic, including collection of specimen(s) by brushing or washing,when performed (separate procedure) Diagnosis Code(s): --- Professional --- D50.9, Iron deficiency anemia, unspecified CPT copyright 2020 [employer]. All rights reserved. The codes documented in this report are preliminary and upon regenerator operator reviewmay be revised to meet current compliance requirements. Dylon Yeh MD 09/14/2024 8:22:44 AM This report has been signed electronically.Dylon Yeh MD Number of Addenda: 0 Note Initiated On: 09/14/2024 7:57 AM Scope In: Scope Out: Endoscopy Department at [facility] - [address] [place] [id number] IMPRESSION: - Diverticulosis in the entire examined [...] Most Recently Relevant to Health Maintenance Insurance [facility] Advance Directives Documents on File Type Date Recorded Patient Linux Consultant Expl anation Power of Department Store General Manager 09/14/2024 7:11 AM healt h care proxy Power of Department Store General Manager 09/14/2024 7:11 AM Health Care Decision (hx) [...] (hx) 11/11/2010 AD BORRERO DIRECTIVE Care Teams Supervisor Welding Equipment Repairer Relationship Specialty Start Date End Date Olivier Hilario MD [address] [place] [id number] PCP - General Internal Medicine 07/04/24
== END 2025-07-02 11:23 | disposition home or self-care (01) ==
LOC: HO.HSMS 10:55
PROVIDERS: PCP Internal Medicine; Visit Provider Psychiatry & Neurology Neurology
DX: G43.719 Chronic migraine without aura, intractable, without status migrainosus (principal)
CPT/HCPCS: 64615; 99499

== ENCOUNTER → 2025-07-02 10:55 | Outpatient (BNVA) | payer OTHER, SELFPAY | PROVIDERS: PCP Internal Medicine; Visit Provider Psychiatry & Neurology Neurology | DX: G43.E19 Chronic migraine with aura, intractable, without status migrainosus (principal) | CPT/HCPCS: 64615; J0585 ==